=== PATIENT | male | born 1970 | race African-American/Black ===

== ENCOUNTER 2016-10-11 07:52 | Inpatient (IN) ==
[2016-10-11] MEDS ORDERED: NS 1,000 ML IV ONE (08:14)
[2016-10-11 08:47] LABS: MANUAL DIFF NEEDED? NO; URINE MICRO REVIEW NEEDED? NO; URINE SOURCE CLEAN CATCH
--- NOTE | 2016-10-11 08:50 | PROVIDER DOCUMENTATION ---
Addendum entered and electronically signed by Shira Madera Scribe 10:44: EKG Interpretation - EKG Time of EKG reading by physician:: 10:01 EKG Read and Signed by:: Kiera Odell EKG Interpretation (*Must complete 3 of following elements*): Abnormal Rate: 88 (nonspeific T wave abnormalirty) Rhythm: sinus rhythm with occasional prematue ventricular complexes Original Note: HPI-Abdominal Pain/GI Problem <Shira Madera - Last Filed: 10/11/16 09:52> - General Source: patient - History of Present Illness-ABD Abdominal Pain Onset Location: reports: generalized abdomen Pain Radiation: reports: no radiation Quality of Pain: reports: aching, cramping Severity in ED: reports: moderate Onset/Duration: reports: 4 days ago Timing: reports: still present Activities at Onset: reports: none Modifying Factors: improves with: nothing Associated Symptoms: reports: back/neck pain, malaise. denies: chest pain, constipation, cough, diaphoresis, diarrhea, dizziness, rash, seizure, shortness of breath, pain with inspiration, vomiting Last BM: other (10 days ago) Dark Stools Present?: reports: none noticed Rectal Bleeding: reports: none Rectal Pain: reports: none Emesis Description: reports: none Bruising or Bleeding Gums?: No Similar Symptoms Previously?: No Recently seen or treated by another doctor?: No <Kiera Odell - Last Filed: 10/11/16 09:58> - General Chief Complaint: Abdominal Pain Stated Complaint: ABD PAIN/CONSTIPATION Time Seen by Provider: 10/11/16 07:54 Allergies/Adverse Reactions: Patient Allergies Allergy/AdvReac Type Severity Reaction Status Date / Time No Known Allergies Allergy Verified 10/11/16 08:19 Home Medications: Carvedilol [Coreg] 12.5 mg PO DAILY 01/04/14 Metformin [Glucophage] 500 mg PO BID 08/27/14 Insulin Humulin 70/30 [Humulin 70/30] 10 units SQ HS 10/29/14 Insulin Humulin 70/30 [Humulin 70/30] 15 units SQ DAILY 10/29/14 Hydrocodone/Acetaminophen [[place] 7.5-325 Tablet] 1 each PO Q6H PRN PRN 10/11/16 - History of Present Illness-ABD Nature of Presenting Problems: Reports R flank and generalized abd pain since more than 10 days ago after taking Keflex fro sinusitis via PCP. Denies F/C/N/V and dysuria. Reports he is on insulin for DMII and he was started [place] since 4 months ago for chronic pain. Reports No BM since 4 days ago. (Kiera Odell) Review of Systems - Adult - REVIEW OF SYSTEMS - ADULT Constitutional: reports: no symptoms reported Eyes: reports: no symptoms reported Ears, Nose, Mouth & Throat: reports: no symptoms reported Cardiovascular: reports: no symptoms reported Respiratory: reports: no symptoms reported Gastrointestinal: reports: see HPI, constipation. denies: nausea, poor appetite , rectal bleeding Genitourinary: reports: see HPI, flank pain Musculoskeletal: reports: no symptoms reported Integumentary: reports: no symptoms reported Neurological: reports: no symptoms reported Psychiatric: reports: no symptoms reported All Other Systems: Reviewed and Negative <Kiera Odell - Last Filed: 10/11/16 09:58> Past History - Adult - PAST MEDICAL HISTORY-ADULT Major Childhood Illnesses: reports: denies history Cardiovascular: reports: CHF, HTN, hyperlipidemia Respiratory: reports: asthma Endocrine/Immune: reports: Diabetes - PRIOR SURGERIES/PROCEDURES Surgical/Procedure History: reports: none - IMMUNIZATION STATUS Childhood Immunizations: See Nurse Assessment Flu Vaccine: See Nurse Assessment <Kiera Odell - Last Filed: 10/11/16 09:58> Physical Exam-General - PHYSICAL EXAM-ADULT Initial Vital Signs Reviewed: Yes - CONSTITUTIONAL General Appearance: appears well, alert, no apparent distress - EYES Eyes: PERRL/EOMI, pink conjunctivae, fundi clear, no AV nicking - HEAD, EARS, NOSE, MOUTH & THROAT HENMT: normocephalic/atraumatic, moist mucous membranes, normal ENT inspection - NECK Neck: non-tender, full range of motion, supple, normal inspection - RESPIRATORY Respiratory: chest non-tender, lungs clear, normal breath sounds, no pleuratic chest pain, no respiratory distress, no accessory muscle use - CARDIOVASCULAR Cardiovascular: normal peripheral pulses, regular rate, rhythm, no edema, no gallop, no JVD, no murmur - CHEST (BREASTS) Chest/Breast: deferred, normal breast inspection - GASTROINTESTINAL (ABDOMEN) Abdominal Exam: normal bowel sounds, soft, no organomegaly, tenderness. negative: distended, guarding, rigid, rebound, hernia, spleenomegaly, McBurney' s point tenderness, Saleem's sign, obturator sign (Diffused R flank and b/l lower abd pain) - MUSCULOSKELETAL Extremity: normal range of motion, non-tender, normal gait, normal inspection - SKIN Integumentary: normal color, normal turgor, warm/dry - NEUROLOGIC Neurologic: grossly normal, no motor/sensory deficits, abnormal cerebellar tests , abnormal gait - PSYCHIATRIC Psych/Mental Status: normal mood/affect, normal thought content, normal thought process, oriented x 3 <Kiera Odell X - Last Filed: 10/11/16 09:58> Progress - CT/MRI 1 CT Study: Renal Stone (1. Dilated appendix with a prominent appendicolith. No definite surrounding inflammatory change is identified. Nonetheless, very early acute appendicits cannot be excluded. 2. No renal stones or hydro.) <Shira Madera - Last Filed: 10/11/16 09:52> - CONSULTS/PCP/HOSPITALIST Notification Time Discussed: 09:55 Reason/Comments: Dr. Mixon will see pt at ER Consult Disposition: Will see in ED, Admit <Jose RKiera X - Last Filed: 10/11/16 09:58> - PLAN OF CARE/RESULTS Progress/Plan/Lab Results: Laboratory Results - last 24 hr 10/11/16 10/11/16 10/11/16 08:38 08:38 08:38 WBC RBC Hgb Hct MCV MCH MCHC RDW Std Deviation Plt Count MPV Neut % (Auto) Lymph % (Auto) Desha % (Auto) Eos % (Auto) Baso % (Auto) Neut # (Auto) Lymph # (Auto) Desha # (Auto) Eos # (Auto) Baso # (Auto) Sodium 132 L Potassium 4.7 Chloride 95 L Carbon Dioxide 22 L Anion Gap 15 BUN 34 H Creatinine 1.8 H Estimated GFR/1.73 m2 50 BUN/Creatinine Ratio 19 Glucose 174 H Calculated Osmolality 276 Calcium 9.9 Total Bilirubin 0.50 AST 24 ALT 30 Alkaline Phosphatase 88 Total Protein 8.7 H Albumin 4.1 Globulin 4.6 Albumin/Globulin Ratio 0.9 Amylase 133 Lipase 135 H Urine Source CLEAN CATCH Urine Color YELLOW Urine Turbidity HAZY Urine pH 5.0 Ur Specific [place] 1.026 Urine Protein TRACE A Ur Glucose (Stick) NEGATIVE Ur Ketones (Stick) NEGATIVE Urine Blood NEGATIVE Urine Nitrite NEGATIVE Urine Bilirubin NEGATIVE Urobilinogen Dipstick NORMAL Urine Leukocytes MODERATE A Urine WBC (Auto) 10-20 A Urine RBC (Auto) <10 U Epithel Cells (Auto) >10 A Urine Bacteria (Auto) NEGATIVE Urine Opiates Screen NONE DETECTED Ur Oxycodone Screen NONE DETECTED Ur Methadone, Qual NONE DETECTED Ur Barbiturates Screen NONE DETECTED Ur Phencyclidine Scrn NONE DETECTED Ur Amphetamines Screen NONE DETECTED U Benzodiazepines Scrn NONE DETECTED Urine Cocaine Screen PRESUMPTIVE POSITIVE A U Cannabinoids Screen PRESUMPTIVE POSITIVE A 10/11/16 08:38 WBC 7.25 RBC 5.14 Hgb 13.9 L Hct 43.3 MCV 84.2 MCH 27.0 MCHC 32.1 L RDW Std Deviation 14.0 Plt Count 252 MPV 9.9 Neut % (Auto) 61.0 Lymph % (Auto) 30.1 Desha % (Auto) 5.9 Eos % (Auto) 2.6 Baso % (Auto) 0.4 Neut # (Auto) 4.42 Lymph # (Auto) 2.18 Desha # (Auto) 0.43 Eos # (Auto) 0.19 Baso # (Auto) 0.03 Sodium Potassium Chloride Carbon Dioxide Anion Gap BUN Creatinine Estimated GFR/1.73 m2 BUN/Creatinine Ratio Glucose Calculated Osmolality Calcium Total Bilirubin AST ALT Alkaline Phosphatase Total Protein Albumin Globulin Albumin/Globulin Ratio Amylase Lipase Urine Source Urine Color Urine Turbidity Urine pH Ur Specific [place] Urine Protein Ur Glucose (Stick) Ur Ketones (Stick) Urine Blood Urine Nitrite Urine Bilirubin Urobilinogen Dipstick Urine Leukocytes Urine WBC (Auto) Urine RBC (Auto) U Epithel Cells (Auto) Urine Bacteria (Auto) Urine Opiates Screen Ur Oxycodone Screen Ur Methadone, Qual Ur Barbiturates Screen Ur Phencyclidine Scrn Ur Amphetamines Screen U Benzodiazepines Scrn Urine Cocaine Screen U Cannabinoids Screen Vital Signs Temp Pulse Resp BP Pulse Ox 10/11/16 07:56 98.0 F 106 H 18 128/96 100 No Known Allergies Allergy (Verified 10/11/16 08:19) Lisinopril [Zestril] 20 mg PO DAILY #30 mg NS 11/07/13 Carvedilol [Coreg] 12.5 mg PO DAILY 01/04/14 Metformin [Glucophage] 500 mg PO BID 08/27/14 Insulin Humulin 70/30 [Humulin 70/30] 10 units SQ HS 10/29/14 Insulin Humulin 70/30 [Humulin 70/30] 15 units SQ DAILY 10/29/14 Furosemide [Lasix] 40 mg PO DAILY #0 tablet 10/31/14 Potassium Chloride 8 meq PO DAILY #0 capsule.er 10/31/14 Hydrocodone/Acetaminophen [[place] 7.5-325 Tablet] 1 each PO Q6H PRN PRN 10/11/16 Dietary Diet NPO Start Sun Oct 11 813 I&O 10/10/16 10/11/16 10/12/16 06:59 06:59 06:59 Output Total 10 Balance -10 Laboratory 10/11/16 10/11/16 10/11/16 08:38 08:38 08:38 WBC 7.25 RBC 5.14 Hgb 13.9 L Hct 43.3 MCV 84.2 MCH 27.0 MCHC 32.1 L RDW Std Deviation 14.0 Plt Count 252 MPV 9.9 Neut % (Auto) 61.0 Lymph % (Auto) 30.1 Desha % (Auto) 5.9 Eos % (Auto) 2.6 Baso % (Auto) 0.4 Neut # (Auto) 4.42 Lymph # (Auto) 2.18 Desha # (Auto) 0.43 Eos # (Auto) 0.19 Baso # (Auto) 0.03 Sodium 132 L Potassium 4.7 Chloride 95 L Carbon Dioxide 22 L Anion Gap 15 BUN 34 H Creatinine 1.8 H Estimated GFR/1.73 m2 50 BUN/Creatinine Ratio 19 Glucose 174 H Calculated Osmolality 276 Calcium 9.9 Total Bilirubin 0.50 AST 24 ALT 30 Alkaline Phosphatase 88 Total Protein 8.7 H Albumin 4.1 Globulin 4.6 Albumin/Globulin Ratio 0.9 Amylase 133 Lipase 135 H Urine Source Urine Color Urine Turbidity Urine pH Ur Specific [place] Urine Protein Ur Glucose (Stick) Ur Ketones (Stick) Urine Blood Urine Nitrite Urine Bilirubin Urobilinogen Dipstick Urine Leukocytes Urine WBC (Auto) Urine RBC (Auto) U Epithel Cells (Auto) Urine Bacteria (Auto) Urine Opiates Screen NONE DETECTED Ur Oxycodone Screen NONE DETECTED Ur Methadone, Qual NONE DETECTED Ur Barbiturates Screen NONE DETECTED Ur Phencyclidine Scrn NONE DETECTED Ur Amphetamines Screen NONE DETECTED U Benzodiazepines Scrn NONE DETECTED Urine Cocaine Screen PRESUMPTIVE POSITIVE A U Cannabinoids Screen PRESUMPTIVE POSITIVE A 10/11/16 08:38 WBC RBC Hgb Hct MCV MCH MCHC RDW Std Deviation Plt Count MPV Neut % (Auto) Lymph % (Auto) Desha % (Auto) Eos % (Auto) Baso % (Auto) Neut # (Auto) Lymph # (Auto) Desha # (Auto) Eos # (Auto) Baso # (Auto) Sodium Potassium Chloride Carbon Dioxide Anion Gap BUN Creatinine Estimated GFR/1.73 m2 BUN/Creatinine Ratio Glucose Calculated Osmolality Calcium Total Bilirubin AST ALT Alkaline Phosphatase Total Protein Albumin Globulin Albumin/Globulin Ratio Amylase Lipase Urine Source CLEAN CATCH Urine Color YELLOW Urine Turbidity HAZY Urine pH 5.0 Ur Specific [place] 1.026 Urine Protein TRACE A Ur Glucose (Stick) NEGATIVE Ur Ketones (Stick) NEGATIVE Urine Blood NEGATIVE Urine Nitrite NEGATIVE Urine Bilirubin NEGATIVE Urobilinogen Dipstick NORMAL Urine Leukocytes MODERATE A Urine WBC (Auto) 10-20 A Urine RBC (Auto) <10 U Epithel Cells (Auto) >10 A Urine Bacteria (Auto) NEGATIVE Urine Opiates Screen Ur Oxycodone Screen Ur Methadone, Qual Ur Barbiturates Screen Ur Phencyclidine Scrn Ur Amphetamines Screen U Benzodiazepines Scrn Urine Cocaine Screen U Cannabinoids Screen Orders Category Date Time Status Saline Loc DIRECTED Care 10/11/16 08:14 Active NPO Diet 10/11/16 08:14 Active KUB ABDOMEN [RAD] Stat Exams 10/11/16 07:54 Taken RENAL STONE SEARCH [CT] Stat Exams 10/11/16 08:14 Draft AMYLASE [CHEM] Stat Lab 10/11/16 08:38 Completed CBC WITH ELECTRONIC DIFF [HEME] Stat Lab 10/11/16 08:38 Completed COMPREHENSIVE METABOLIC PANEL [CHEM] Stat Lab 10/11/16 08:38 Completed LIPASE [CHEM] Stat Lab 10/11/16 08:38 Completed TROPONIN T Stat Lab 10/11/16 08:38 Received UA NIMS W/REFLEX CULT [URINALYSIS] Stat Lab 10/11/16 08:38 Completed UDS [URINE DRUG SCREEN] Stat Lab 10/11/16 08:38 Completed 0.9% Sodium Chloride Inj [Ns] 1,000 ml Med 10/11/16 08:14 Discontinued IV 999 mls/hr CefTRIAXONE 1 GM/NS [Rocephin 1 gm/Ns] 50 ml Med 10/11/16 09:50 Active IV NOW EKG [EKG] Stat Ther 10/11/16 09:47 Ordered (Kiera Odell) Departure <Shira Madera - Last Filed: 10/11/16 09:52> - Departure Time of Disposition Order: 09:56 Certified Medical Emergency: Emergent <Kiera Odell - Last Filed: 10/11/16 09:58> - Departure DIAGNOSIS: Cocaine abuse Acute appendicitis Qualifiers: Acute appendicitis type: unspecified acute appendicitis type Qualified Code(s) : K35.80 - Unspecified acute appendicitis UTI (urinary tract infection) Qualifiers: Urinary tract infection type: acute cystitis Hematuria presence: without hematuria Qualified Code(s): N30.00 - Acute cystitis without hematuria Disposition: ADMITTED INPATIENT 09 Condition: Stable Referrals: Shola Estrella MD [Primary Care Provider] - Attestation - Scribe Verification/Attestation Scribe:: Shira Madera Acting as Scribe for:: Kiera Odell Scribe documention review:: This chart was documented by a scribe and accurately reflects the service the provider performed and the decisions made by the provider. <Shira Madera - Last Filed: 10/11/16 09:52> Physician Attestation
[2016-10-11 08:56] LABS: BASO% 0.4 % (0.0-0.8); EOS# 0.19 X1000 (0.0-0.7); EOS% 2.6 % (0.0-10.0); HEMATOCRIT 43.3 % (42.0-52.0); HEMOGLOBIN 13.9 g/dL (14.0-18.0); LYMPH# 2.18 X1000 (1.2-3.4); LYMPH% 30.1 % (20.5-51.1); MCHC 32.1 g/dL (33-37); MCV 84.2 FL (81-99); MONO# 0.43 X1000 (0.11-0.59); MONO% 5.9 % (1.7-9.3); MPV 9.9 FL (7.4-10.4); PLT 252 X1000 (130-400); RBC 5.14 XMIL (4.7-6.1)
[2016-10-11 09:09] LABS: BILIRUBIN URINE NEGATIVE (NEGATIVE); BLOOD URINE NEGATIVE (NEGATIVE); COLOR YELLOW; GLUCOSE URINE NEGATIVE (NEGATIVE); LEUKOCYTES URINE MODERATE (NEGATIVE); NITRITE URINE NEGATIVE (NEGATIVE); PROTEIN URINE TRACE mg/dL (NEGATIVE); SP GRAVITY URINE 1.026; TURBIDITY URINE HAZY (CLEAR); UROBILINOGEN URINE NORMAL (NORMAL)
[2016-10-11 09:11] LABS: UR EPITHELIAL CELLS >10 /HPF (<10); URINE BACTERIA NEGATIVE /HPF; URINE CULTURE NEEDED? YES; URINE RBC <10 /HPF (<10)
[2016-10-11 09:20] LABS: ALBUMIN 4.1 g/dL (3.5-5.0); CALCIUM 9.9 mg/dL (8.8-10.2); POTASSIUM 4.7 mmol/L (3.5-5.1); TOTAL BILIRUBIN 0.5 mg/dL (0.20-1.00); TOTAL PROTEIN 8.7 g/dL (6.3-8.3)
[2016-10-11 09:33] LABS: UR AMPHETAMINES QUAL NONE DETECTED (NONE DETECT); UR BARBITUATES QUAL NONE DETECTED (NONE DETECT); UR BENZODIAZEPIN QUAL NONE DETECTED (NONE DETECT); UR CANNABINOIDS QUAL PRESUMPTIVE POSITIVE (NONE DETECT); UR COCAINE QUAL PRESUMPTIVE POSITIVE (NONE DETECT); UR METHADONE QUAL NONE DETECTED (NONE DETECT); UR OPIATES QUAL NONE DETECTED (NONE DETECT); UR OXYCODONE QUAL NONE DETECTED (NONE DETECT); UR PCP QUAL NONE DETECTED (NONE DETECT)
[2016-10-11] MEDS ORDERED: ROCEPHIN 1 GM/NS 50 ML IV ONE (09:50)
--- NOTE | 2016-10-11 09:54 | Diag Imaging Result Document ---
PROCEDURE NAME: RENAL STONE SEARCH - 10/11/2016 CT ABDOMEN AND PELVIS WITHOUT CONTRAST/RENAL STONE PROTOCOL: COMPARISON: None available. FINDINGS: There is subsegmental atelectasis at the left lung base. There is a 1.4 cm right adrenal nodule with a density that is highly compatible with a small adenoma. There are no renal or ureteral stones, and there is no hydronephrosis. The urinary bladder is largely nondistended and is unremarkable, otherwise. There is a prominent appendicolith. The appendix is thickened, especially at its base, measuring up to 1.1 cm in diameter. Distal to the phlebolith, there is more modest dilation of the appendix measuring up to 7.3 mm in diameter. There is no appreciable periappendiceal inflammatory change and there are actually a few droplets of air in the tip of the appendix. Although it would be a very atypical presentation of appendicitis given the air in the tip of the appendix, very early, appendicitis cannot be excluded. There appear to be numerous small hyperdense foci in the lumen of the colon that are nonspecific and assumed to be something the patient ingested. No definite focal inflammatory change, free abdominal gas, or free fluid is appreciated, otherwise. There are few shotty nonspecific celiac lymph nodes. The remainder of the solid viscera of the abdomen and pelvis and the remainder of the GI tract is essentially unremarkable. IMPRESSION: 1. No renal or ureteral stones identified and no hydronephrosis. 2. Dilated appendix with an appendicolith. Although no significant surrounding inflammatory changes can be identified, early appendicitis cannot completely be excluded. It may be less apparent given the lack of IV contrast. Please see the above discussion. 3. Nonspecific shotty celiac lymph nodes. [facility]
[2016-10-11] MEDS ORDERED: ZOSYN 3.375 GM/NS 50 ML IV ONE (09:56)
[2016-10-11] MEDS ORDERED: LR 1,000 ML ONE (11:13)
[2016-10-11] MEDS ORDERED: SENSORCAINE 0.25%/EPI 1:200,000 ONE (11:13)
--- NOTE | 2016-10-11 11:13 | HISTORY AND PHYSICAL ---
HISTORY OF PRESENT ILLNESS: Mr. Declan Smith is a 45-year-old black male who is disabled because of his heart. He is a patient of Dr. Estrella and has had lower abdominal discomfort localizing to his right lower quadrant and his flank for the last week. He saw Dr. Estrella on September 24 and just was not feeling well and felt congested and he was given Keflex. He presented to the emergency department today because of this lower abdominal pain, decreased appetite, and constipation. SOCIAL HISTORY: He is disabled because of a diagnosis of congestive heart failure. He sees Dr. Saunders and the last time he saw him he felt his heart was doing well. He occasionally smokes. He does have a substance abuse history and I think that he had cocaine positive today. He states that he does not drink. He has a mother, sister, and brother here in [place]. MEDICATIONS: Lisinopril hydrochlorothiazide, metformin, insulin, Lasix, Coreg, and aspirin. ALLERGIES: No known drug allergies. PAST MEDICAL HISTORY: Hypertension, insulin-dependent diabetes mellitus, overweight, and history of congestive heart failure, seen by Dr. Saunders. REVIEW OF SYSTEMS: He has had constipation for the last 4-5 days he has lost 10 pounds over the last several weeks. He has had no recent chest pain or problems with his heart he has had no shortness of breath. A 14-point review of systems was performed. FAMILY HISTORY: Noncontributory. PHYSICAL EXAMINATION: GENERAL: Mr. Smith is an overweight, middle-aged, black male, in no acute distress. HEENT: No jaundice. No oral lesions. LYMPHATIC: No cervical or supraclavicular lymphadenopathy. HEART: Regular rate. LUNGS: Clear to auscultation and percussion bilaterally. ABDOMEN: Soft. There is no previous scars on his abdomen. He was slightly tender in the right lower quadrant, going to his flank. He is overweight. RECTAL: Exam was not performed. EXTREMITIES: He does have palpable peripheral pulses. No significant peripheral edema. NEUROLOGIC: No focal neurologic deficits. DIAGNOSTIC STUDIES: An EKG showed normal sinus rhythm. White blood cell count is normal. A CT renal stone search showed an appendix with an obvious fecalith within it. The proximal appendix was dilated but there is no surrounding inflammation and his white blood cell count is 7. ASSESSMENT AND PLAN: I felt that this fecalith and distention of his appendix could be causing his symptoms. We discussed treatment options including laparoscopic appendectomy which the patient wants to proceed with. I specifically discussed risks of surgery which include bleeding, infection, possible conversion of laparoscopic to open appendectomy, removal of a normal appendix, injury to intra-abdominal contents for trocar placement, leakage from the appendiceal stump requiring reoperation for infection. He understands the need for surgery and its risks and he wants to proceed.
[2016-10-11] MEDS ORDERED: DIPRIVAN 1% ONE (12:29)
[2016-10-11] MEDS: DILAUDID ONE ×2 (12:30→12:35)
--- NOTE | 2016-10-11 13:31 | Diag Imaging Result Document ---
PROCEDURE NAME: KE ABDOMEN - 10/11/2016 SUPINE RADIOGRAPH OF THE ABDOMEN AND PELVIS: COMPARISON: 11/29/2013. FINDINGS: There are multiple radiodense small foci seen projecting over the colon that are nonspecific. It appears to represent ingested material. Please correlate with the patient's history. There is a fair amount of stool in the colon suggesting possible constipation. There is no obstructive bowel pattern or evidence of large-volume free abdominal gas. There is no discrete organomegaly. IMPRESSION: 1. Multiple nonspecific radiopaque foci seen throughout the colon as described. 2. Suggestion of constipation.
[2016-10-11] MEDS ORDERED: TYLENOL PO PRN (13:38)
[2016-10-11] MEDS ORDERED: ZOFRAN IV PRN (13:39)
[2016-10-11] MEDS: NORCO-7.5 PO PRN ×3 (13:57→23:27)
[2016-10-11] MEDS: PERIDEX MT SCH ×2 (13:58→21:56)
[2016-10-11] MEDS: MORPHINE IV PRN ×2 (16:25→21:57)
--- NOTE | 2016-10-11 16:39 | OPERATIVE NOTE ---
PROCEDURE DATE: 10/11/2016 PREOPERATIVE DIAGNOSIS: Acute appendicitis. POSTOPERATIVE DIAGNOSIS: Acute appendicitis. PRINCIPAL PROCEDURE: Laparoscopic appendectomy. SURGEON: Nita Mixon MD. ANESTHESIA: General, in addition to local anesthetic. ESTIMATED BLOOD LOSS: 10 mL. DRAINS: None. INDICATIONS: Declan Smith is a 45-year-old overweight, black male, who presented to our emergency department with 1-week history of abdominal pain which is localized to his lower abdomen, mostly right lower quadrant and going to his right flank. A CT scan of his abdomen and pelvis was performed which documented a fecalith within the appendix, but no surrounding inflammation. No IV contrast was used because this was a renal stone search CT scan. His white blood cell count was normal, but because of his symptoms, his appendicolith and swollen proximal appendix, we felt that this appendix could be symptomatic and inflamed, and appendectomy was recommended. FINDINGS: There was swelling of the appendix, but very little acute inflammation. There is no gross purulence and certainly no intra-abdominal infection. DESCRIPTION OF PROCEDURE: The patient was brought to the operating room, placed supine, received general anesthesia, was intubated. He received Ancef prophylactically. His abdomen was prepped and draped within the sterile field. We used a Hart catheter tube. We made an incision above his umbilicus with a 15 blade scalpel. Veress needle was introduced through this incision into the abdomen. Pneumoperitoneum was established and then we removed the Veress needle and used step trocars. We placed 11 mm step trocar through this incision into the abdomen. The camera was placed through this port, and the abdomen was explored for injury. There was none. Two other trocars were placed under direct vision of the camera. We placed a 12 mm step trocar using a longitudinal incision, lower midline of the abdomen and a 5 mm step trocar in the right lower quadrant of the abdomen. The camera was at our umbilical port. We used a grasper and dissector in our lower ports sites, and easily identified the appendix and mobilized it using spatula cautery and blunt dissection. We used a gold load 45 mm in length Endo RICHELLE to come across the appendiceal mesentery, and then I used a reload of the stapler to come across the base of the appendix. An endobag was used to remove the appendix through our lower midline 12 mm port site. We placed the port back through this incision and the area of operation was inspected. There was no evidence of ongoing bleeding. We were happy with the appendiceal stump and all trocars removed. Pneumoperitoneum was allowed to dissipate and we used [id number] 2-0 Vicryl stitches to reapproximate the fascia at our midline incisions. The skin was closed with 4-0 Monocryl subcuticular stitch. Dressings were applied. He tolerated the procedure well with plans for him to go to the recovery room and then be hospitalized at least overnight.
[2016-10-11] MEDS: LR 1,000 ML IV SCH ×2 (17:36→23:28)
[2016-10-12] MEDS: NORCO-7.5 PO PRN ×2 (04:07→08:43)
--- NOTE | 2016-10-12 05:40 | EKG Report ---
Test Performed on : 10/11/2016 10:01:18 AM Test Reason : [place] positive UDS Blood Pressure : / mmHG Vent. Rate : 088 BPM Atrial Rate : 088 BPM P-R Int : 164 ms QRS Dur : 112 ms QT Int : 364 ms P-R-T Axes : 053 -05 158 degrees QTc Int : 440 ms Sinus rhythm. with occasional premature ventricular complexes. Nonspecific T wave abnormality Abnormal ECG When compared with ECG of 01-SEP-2013 03:09, premature ventricular complexes. are now present Questionable change in QRS axis QT has shortened Unconfirmed Result
[2016-10-12] MEDS: MORPHINE IV PRN (06:01)
--- NOTE | 2016-10-12 07:33 | DISCHARGE SUMMARY ---
ADMISSION DATE: 10/11/2016 DISCHARGE DATE: 10/12/2016 ADMITTING DIAGNOSIS: Acute appendicitis. DISCHARGE DIAGNOSIS: Acute appendicitis. PRINCIPAL PROCEDURE: Laparoscopic appendectomy on 10/11/2016. DISCHARGE DISABILITIES: Full. DISCHARGE DISPOSITION: He will return to our outpatient office in a week. DISCHARGE MEDICATION: He is to return to any home medications that he takes. DISCHARGE DIET: Clear liquids. HOSPITAL COURSE: Mr. Declan Smith is a 45-year-old, disabled black male, who presented to our emergency department with a 1 week history of abdominal pain, which was mostly in the lower abdomen but localized to the right lower quadrant and extended around his right flank. CT scan of the abdomen and pelvis was performed which documented a fecalith within the appendix and some swelling proximally of the appendix, but there was no significant inflammation surrounding the appendix. His white blood cell count was normal but because of his symptoms and the fecalith we felt his symptoms could be related to his swollen appendix and appendectomy was recommended. Yesterday evening he went to the operating room, underwent a laparoscopic appendectomy for acute appendicitis. No other intra-abdominal pathology was noted. We felt we did the operation safely. No drains were left. He went to the recovery room and then to the [address] [place] [address] where he was hospitalized overnight. On the morning of postop day 1, he was awake, cooperative, comfortable. His heart rate was 89, blood pressure 112/82, O2 saturation 100%. He had no work of breathing. He was voiding without difficulty. He was afebrile on no antibiotics. His trocar sites were dressed and intact, healing well. I discussed post discharge instructions with him. He knows to contact us with any problems. I will see him in our outpatient office in a week.
[2016-10-12 07:48] VITALS: BP 134/90
[2016-10-12] MEDS ORDERED: NEOSTIGMINE ONE (08:39)
[2016-10-12] MEDS ORDERED: SODIUM CHLORIDE 0.9% 10 ML ONE (08:39)
[2016-10-12] MEDS ORDERED: QUELICIN (DOSE) ONE (08:39)
[2016-10-12] MEDS ORDERED: ROBINUL ONE (08:39)
[2016-10-12] MEDS ORDERED: XYLOCAINE-MPF 2% ONE (08:39)
[2016-10-12] MEDS ORDERED: NORCURON ONE (08:39)
[2016-10-12] MEDS ORDERED: NEO-SYNEPHRINE ONE (08:39)
[2016-10-12] MEDS ORDERED: ZOFRAN ONE (08:39)
[2016-10-12] MEDS ORDERED: LR 1,000 ML ONE (08:39)
[2016-10-12] MEDS: PERIDEX MT SCH (08:44)
== END 2016-10-12 09:10 | disposition home or self-care (01) | DRG 342 ==
LOC: ED 07:52 → EDIPHOLD 11:11 → 4N 13:11
PROVIDERS: ADMIT Surgery; ATTEND Surgery
PROC: 0DTJ4ZZ Resection of Appendix, Percutaneous Endoscopic Approach (ICD-10-PCS; principal; 2016-10-11 11:27)
DX: K35.80 Unspecified acute appendicitis (principal); Z68.41 Body mass index [BMI] 40.0-44.9, adult; I11.0 Hypertensive heart disease with heart failure; I50.9 Heart failure, unspecified; K56.41 Fecal impaction; E11.9 Type 2 diabetes mellitus without complications; E66.3 Overweight; Z79.899 Other long term (current) drug therapy; Z79.84 Long term (current) use of oral hypoglycemic drugs; Z79.4 Long term (current) use of insulin; R82.5 Elevated urine levels of drugs, medicaments and biological substances
CPT/HCPCS: 74000; 74176; 80053; 81001; 82150; 82948; 83690; 84484; 85025; 87088; 88304; 93005; 94761; 94799; 96365; G0480; J0330; J1170; J2270; J2370; J2405; J2543; J7030; J7120; J2710

== ENCOUNTER 2017-03-01 20:27 | Inpatient (IN) ==
[2017-03-01] MEDS ORDERED: ASPIRIN PO STA (20:41)
--- NOTE | 2017-03-01 21:46 | PROVIDER DOCUMENTATION ---
HPI-Respiratory General - General Chief Complaint: Shortness of Breath Stated Complaint: RT SIDE PAIN/ TROUBLE BREATHING Time Seen by Provider: 03/01/17 21:00 Allergies/Adverse Reactions: Patient Allergies Allergy/AdvReac Type Severity Reaction Status Date / Time No Known Allergies Allergy Verified 10/11/16 08:19 Home Medications: Home Medication List Medication Instructions Recorded Confirmed Last Taken Type Lisinopril [Zestril] 20 mg PO DAILY #30 mg NS 11/07/13 10/11/16 10/10/16 Rx Carvedilol [Coreg] 12.5 mg PO DAILY 01/04/14 10/11/16 10/10/16 History Metformin [Glucophage] 500 mg PO BID 08/27/14 10/11/16 10/11/16 History Insulin Humulin 70/30 [Humulin 10 units SQ HS 10/29/14 10/11/16 10/10/16 History 70/30] Insulin Humulin 70/30 [Humulin 15 units SQ DAILY 10/29/14 10/11/16 10/11/16 History 70/30] Furosemide [Lasix] 40 mg PO DAILY #0 tablet 10/31/14 10/11/16 10/10/16 Rx Potassium Chloride 8 meq PO DAILY #0 capsule.er 10/31/14 10/11/16 2 Months Ago Rx Hydrocodone/Acetaminophen [[place]ie 1 each PO Q6H PRN PRN 10/11/16 10/11/16 History 7.5-325 Tablet] Hydrocodone/APAP 7.5 mg/325 mg 1 each PO Q6H PRN PRN #15 tablet 10/12/16 Unknown Rx [D[place]widdie-7.5] Past History - Adult - PAST MEDICAL HISTORY-ADULT Major Childhood Illnesses: reports: denies history Cardiovascular: reports: CHF, HTN, hyperlipidemia Respiratory: reports: asthma Endocrine/Immune: reports: Diabetes - PRIOR SURGERIES/PROCEDURES Surgical/Procedure History: reports: none - IMMUNIZATION STATUS Childhood Immunizations: See Nurse Assessment Flu Vaccine: See Nurse Assessment Progress - PLAN OF CARE/RESULTS Progress/Plan/Lab Results: Vital Signs - 8 hr 03/01/17 20:40 Temperature 98.9 F Pulse Rate 92 H Respiratory Rate 20 Blood Pressure 140/87 O2 Sat by Pulse Oximetry 98 Orders Category Date Time Status Cardiac Monitoring DIRECTED Care 03/01/17 20:42 Active Saline Loc NOW Care 03/01/17 20:42 Active CHEST-2 VIEWS [RAD] Stat Exams 03/01/17 20:42 Taken BLOOD CULTURE [BLDCUL] Stat Lab 03/01/17 21:43 Uncollected CBC WITH ELECTRONIC DIFF [HEME] Stat Lab 03/01/17 20:42 Uncollected CK PROFILE [SP CHEM] Stat Lab 03/01/17 20:42 Uncollected COMPREHENSIVE METABOLIC PANEL [CHEM] Stat Lab 03/01/17 20:42 Uncollected D-DIMER [CHEM] Stat Lab 03/01/17 20:42 Uncollected LACTATE, PLASMA [CHEM] Stat Lab 03/01/17 21:43 Uncollected MAGNESIUM [CHEM] Stat Lab 03/01/17 20:42 Uncollected PRO B-NATRIURETIC PEPTIDE Stat Lab 03/01/17 20:42 Uncollected PROTIME WITH INR [COAG] Stat Lab 03/01/17 20:42 Uncollected PTT [COAG] Stat Lab 03/01/17 20:42 Uncollected TROPONIN T Stat Lab 03/01/17 20:42 Uncollected UA Reflex [URINALYSIS W/POSS RFLX CULT-1] [URINALYSIS] Lab 03/01/17 21:01 Uncollected Stat Aspirin Med 03/01/17 20:41 Discontinued 325 mg PO STAT STA EKG [EKG] Stat Ther 03/01/17 20:42 Ordered - XRAY 1 XRAY Study: Chest Impression: Abnormal (RIGHT MIDDLE LOBE INFILTRATE, R LOWER LOBE INFILTRATE, PNEUMONIA, CARDIOMEGALY) Departure - Departure Referrals and Follow-Ups: Shola Estrella MD [Primary Care Provider] -
--- NOTE | 2017-03-01 22:06 | ED EKG INTERP ---
This chart was entered by Vandana Bermudez Scribe, acting as scribe for Celso Brown MD. EKG Interpretation - EKG Time of EKG reading by physician:: 20:47 EKG Read and Signed by:: Celso Brown EKG Interpretation (*Must complete 3 of following elements*): Abnormal Rate: 95 Rhythm: NSR Comments: Abnormal ECG,Prolonged QT, Nonspecific T wave abnormality This chart was documented by the indicated scribe, (Vandana Bermudez Scribe) and accurately reflects the services I performed and decisions made by me, Celso Brown MD, as attested by the provider's signature.
--- NOTE | 2017-03-01 22:08 | PROVIDER DOCUMENTATION ---
This chart was entered by Vandana Bermudez Scribe, acting as scribe for Ashok Pelayo PA. HPI-Respiratory General - General Chief Complaint: Shortness of Breath Stated Complaint: RT SIDE PAIN/ TROUBLE BREATHING Time Seen by Provider: 03/01/17 21:00 Source: patient Allergies/Adverse Reactions: Patient Allergies Allergy/AdvReac Type Severity Reaction Status Date / Time No Known Allergies Allergy Verified 03/01/17 22:02 Home Medications: Home Medication List Medication Instructions Recorded Confirmed Last Taken Type Lisinopril [Zestril] 20 mg PO DAILY #30 mg NS 11/07/13 03/01/17 10/10/16 Rx Carvedilol [Coreg] 12.5 mg PO DAILY 01/04/14 03/01/17 10/10/16 History Metformin [Glucophage] 500 mg PO BID 08/27/14 03/01/17 10/11/16 History Insulin Humulin 70/30 [Humulin 10 units SQ HS 10/29/14 03/01/17 10/10/16 History 70/30] Insulin Humulin 70/30 [Humulin 15 units SQ DAILY 10/29/14 03/01/17 10/11/16 History 70/30] Furosemide [Lasix] 40 mg PO DAILY #0 tablet 10/31/14 03/01/17 10/10/16 Rx Potassium Chloride 8 meq PO DAILY #0 capsule.er 10/31/14 03/01/17 2 Months Ago Rx Hydrocodone/Acetaminophen [Coram 1 each PO Q6H PRN PRN 10/11/16 03/01/17 History 7.5-325 Tablet] Albuterol Sulfate Inhaler 1 puff INH PRN PRN 03/01/17 03/01/17 Unknown History [Ventolin Hfa] - History of Present Illness-Resp Nature of Presenting Problem: 46 Y/O M presents to ED with Respiratory General. Pt states for the last 3-4 increased SOB. Pt states hx of CHF,Diabetic, HTN, COPD. Pt states SOB increases when laying down, and if he lays flat he stops breathing. Pt states he uses a CPap at home. CP increases at night and states sudden burst on original onset. Quality of Pain: reports: tightness Severity in ED: reports: moderate, severe Onset/Duration: reports: 4 days ago Timing: reports: still present, changing over time, getting worse Current Respiratory Medication Therapy: Initiated other (CPAP) Associated Symptoms: reports: chest pain/soreness, shortness of breath. denies : nasal congestion Similar Symptoms Previously?: Yes Review of Systems - Adult - REVIEW OF SYSTEMS - ADULT Constitutional: denies: chills, fever Eyes: reports: no symptoms reported Ears, Nose, Mouth & Throat: reports: no symptoms reported Cardiovascular: reports: chest pain Respiratory: reports: shortness of breath Gastrointestinal: reports: no symptoms reported Genitourinary: reports: no symptoms reported Musculoskeletal: reports: no symptoms reported Integumentary: reports: no symptoms reported Neurological: reports: no symptoms reported Psychiatric: reports: no symptoms reported Endocrine: reports: no symptoms reported Hematologic/Lymphatic: reports: no symptoms reported Allergic/Immunologic: reports: no symptoms reported All Other Systems: Reviewed and Negative Past History - Adult - PAST MEDICAL HISTORY-ADULT Review of Records: reports: Old Records Reviewed, Nursing Assessment Review, Medications Reviewed, Social history reviewed & non-contributory. Major Childhood Illnesses: reports: denies history Cardiovascular: reports: CHF, HTN, hyperlipidemia Respiratory: reports: asthma Endocrine/Immune: reports: Diabetes - PRIOR SURGERIES/PROCEDURES Surgical/Procedure History: reports: none - IMMUNIZATION STATUS Childhood Immunizations: See Nurse Assessment Flu Vaccine: See Nurse Assessment Physical Exam-General - CONSTITUTIONAL General Appearance: alert, no apparent distress, obese - EYES Eyes: PERRL/EOMI, pink conjunctivae - HEAD, EARS, NOSE, MOUTH & THROAT HENMT: normocephalic/atraumatic, moist mucous membranes, normal ENT inspection, TMs normal, pharynx normal - NECK Neck: full range of motion, other (JVD) - RESPIRATORY Respiratory: decreased breath sounds (BASES) - CARDIOVASCULAR Cardiovascular: normal peripheral pulses, regular rate, rhythm - GASTROINTESTINAL (ABDOMEN) Abdominal Exam: non tender, soft - MUSCULOSKELETAL Extremity: normal range of motion, non-tender - SKIN Integumentary: normal color, normal turgor, warm/dry - NEUROLOGIC Neurologic: grossly normal - PSYCHIATRIC Psych/Mental Status: normal mood/affect, normal thought content, normal thought process, oriented x 3 Progress - PLAN OF CARE/RESULTS Progress/Plan/Lab Results: Vital Signs - 8 hr 03/01/17 20:40 03/01/17 22:00 Temperature 98.9 F Pulse Rate 92 H 89 Respiratory Rate 20 16 Blood Pressure 140/87 133/103 O2 Sat by Pulse Oximetry 98 96 Laboratory Results - last 24 hr 03/01/17 03/01/17 03/01/17 21:50 21:50 21:50 WBC 9.03 RBC 4.40 L Hgb 12.1 L Hct 38.3 L MCV 87.0 MCH 27.5 MCHC 31.6 L RDW Std Deviation 14.8 H Plt Count 233 MPV 10.1 Immature Gran % (Auto) 0.2 Neut % (Auto) 65.4 Lymph % (Auto) 27.4 [place] % (Auto) 5.4 Eos % (Auto) 1.3 Baso % (Auto) 0.3 Immature Gran # (Auto) 0.02 Neut # (Auto) 5.90 Lymph # (Auto) 2.47 [place] # (Auto) 0.49 Eos # (Auto) 0.12 Baso # (Auto) 0.03 PT INR PTT (Actin FS) D-Dimer 2.11 H Specimen Type Sample Site pH pCO2 pO2 HCO3 Base Excess Oxyhemoglobin ABG O2 Sat (Calculated) ABG O2 Saturation ABG Carboxyhemoglobin ABG Methemoglobin Kade Test A-a O2 Difference Total Hemoglobin Lactate Liter Flow Blood Gas Modality FiO2 % Sodium 141 Potassium 4.0 Chloride 104 Carbon Dioxide 25 Anion Gap 12 BUN 20 Creatinine 1.3 H Estimated GFR/1.73 m2 > 60 BUN/Creatinine Ratio 15 Glucose 118 H Calculated Osmolality 285 Calcium 8.9 Magnesium 1.9 Total Bilirubin 0.53 AST 38 H ALT 40 Alkaline Phosphatase 121 Creatine Kinase 442 H Creatine Kinase Index 2.0 CK-MB (CK-2) 8.77 H Troponin T [id number] Pept Total Protein 8.3 Albumin 4.0 Globulin 4.3 Albumin/Globulin Ratio 0.9 Plasma Lactate Urine Source Urine Color Urine Turbidity Urine pH Ur Specific [place] Urine Protein Ur Glucose (Stick) Ur Ketones (Stick) Urine Blood Urine Nitrite Urine Bilirubin Urobilinogen Dipstick Urine Leukocytes Urine WBC (Auto) Urine RBC (Auto) U Epithel Cells (Auto) Urine Bacteria (Auto) 03/01/17 03/01/17 03/01/17 21:50 21:50 21:50 WBC RBC Hgb Hct MCV MCH MCHC RDW Std Deviation Plt Count MPV Immature Gran % (Auto) Neut % (Auto) Lymph % (Auto) [place] % (Auto) Eos % (Auto) Baso % (Auto) Immature Gran # (Auto) Neut # (Auto) Lymph # (Auto) [place] # (Auto) Eos # (Auto) Baso # (Auto) PT 12.0 H INR 1.13 PTT (Actin FS) 28.8 D-Dimer Specimen Type Sample Site pH pCO2 pO2 HCO3 Base Excess Oxyhemoglobin ABG O2 Sat (Calculated) ABG O2 Saturation ABG Carboxyhemoglobin ABG Methemoglobin Kade Test A-a O2 Difference Total Hemoglobin Lactate Liter Flow Blood Gas Modality FiO2 % Sodium Potassium Chloride Carbon Dioxide Anion Gap BUN Creatinine Estimated GFR/1.73 m2 BUN/Creatinine Ratio Glucose Calculated Osmolality Calcium Magnesium Total Bilirubin AST ALT Alkaline Phosphatase Creatine Kinase Creatine Kinase Index CK-MB (CK-2) Troponin T < 0.010 Uol-W-Gyqbngdeiad Pept 3881 H Total Protein Albumin Globulin Albumin/Globulin Ratio Plasma Lactate Urine Source Urine Color Urine Turbidity Urine pH Ur Specific [place] Urine Protein Ur Glucose (Stick) Ur Ketones (Stick) Urine Blood Urine Nitrite Urine Bilirubin Urobilinogen Dipstick Urine Leukocytes Urine WBC (Auto) Urine RBC (Auto) U Epithel Cells (Auto) Urine Bacteria (Auto) 03/01/17 03/01/17 03/01/17 21:50 23:05 23:25 WBC RBC Hgb Hct MCV MCH MCHC RDW Std Deviation Plt Count MPV Immature Gran % (Auto) Neut % (Auto) Lymph % (Auto) [place] % (Auto) Eos % (Auto) Baso % (Auto) Immature Gran # (Auto) Neut # (Auto) Lymph # (Auto) [place] # (Auto) Eos # (Auto) Baso # (Auto) PT INR PTT (Actin FS) D-Dimer Specimen Type ARTERIAL Sample Site R RADIAL pH 7.37 pCO2 44 pO2 93 HCO3 24.8 Base Excess -0.1 Oxyhemoglobin 93.3 L ABG O2 Sat (Calculated) 15.6 ABG O2 Saturation 98.6 ABG Carboxyhemoglobin 4.30 H ABG Methemoglobin 1.1 Kade Test YES A-a O2 Difference 80.0 Total Hemoglobin 11.8 Lactate 0.60 Liter Flow 3.0 Blood Gas Modality CANNULA FiO2 % 32.0 Sodium Potassium Chloride Carbon Dioxide Anion Gap BUN Creatinine Estimated GFR/1.73 m2 BUN/Creatinine Ratio Glucose Calculated Osmolality Calcium Magnesium Total Bilirubin AST ALT Alkaline Phosphatase Creatine Kinase Creatine Kinase Index CK-MB (CK-2) Troponin T Gzk-C-Acktjjbdjwq Pept Total Protein Albumin Globulin Albumin/Globulin Ratio Plasma Lactate 0.9 Urine Source CLEAN CATCH Urine Color YELLOW Urine Turbidity CLEAR Urine pH 5.5 Ur Specific [place] 1.028 Urine Protein 70 A Ur Glucose (Stick) NEGATIVE Ur Ketones (Stick) NEGATIVE Urine Blood TRACE A Urine Nitrite NEGATIVE Urine Bilirubin NEGATIVE Urobilinogen Dipstick 4 A Urine Leukocytes MODERATE A Urine WBC (Auto) 10-20 A Urine RBC (Auto) <10 U Epithel Cells (Auto) <10 Urine Bacteria (Auto) NEGATIVE Orders Category Date Time Status Cardiac Monitoring DIRECTED Care 03/01/17 20:42 Active Saline Loc NOW Care 03/01/17 20:42 Active ANGIOGRAM/PULMONARY ARTERIES [CT] Stat Exams 03/01/17 23:34 Taken CHEST-2 VIEWS [RAD] Stat Exams 03/01/17 20:42 Taken ABG [RESP] Routine Lab 03/01/17 23:05 Completed BLOOD CULTURE [BLDCUL] Stat Lab 03/01/17 23:25 Received CBC WITH ELECTRONIC DIFF [HEME] Stat Lab 03/01/17 21:50 Completed CK PROFILE [SP CHEM] Stat Lab 03/01/17 21:50 Completed COMPREHENSIVE METABOLIC PANEL [CHEM] Stat Lab 03/01/17 21:50 Completed D-DIMER [CHEM] Stat Lab 03/01/17 21:50 Completed LACTATE, PLASMA [CHEM] Stat Lab 03/01/17 23:25 Completed MAGNESIUM [CHEM] Stat Lab 03/01/17 21:50 Completed PRO B-NATRIURETIC PEPTIDE Stat Lab 03/01/17 21:50 Completed PROTIME WITH INR [COAG] Stat Lab 03/01/17 21:50 Completed PTT [COAG] Stat Lab 03/01/17 21:50 Completed TROPONIN T Stat Lab 03/01/17 21:50 Completed UA Reflex [URINALYSIS W/POSS RFLX CULT-1] [URINALYSIS] Lab 03/01/17 21:50 Completed Stat Aspirin Med 03/01/17 20:41 Discontinued 325 mg PO STAT STA CefTRIAXONE 1 GM/NS [Rocephin 1 gm/Ns] Med 03/01/17 22:59 Discontinued 1 gm in 50 ml IV NOW Furosemide [Lasix] Med 03/01/17 22:59 Discontinued 40 mg IV NOW ONE EKG [EKG] Stat Ther 03/01/17 20:42 Ordered PROCEDURE NOTE: LIMITED BEDSIDE ULTRASOUND PERFORMED OF LUNGS. B-LINES NOTED CONSISTENT C PLEURAL EDEMA. Result Diagrams: 03/01/17 21:50 03/01/17 21:50 - REASSESSMENT Reassessment #1 Time Reassessed: 22:08 (Discussed workup c Dr. Brown who agreed c plan of care. Labs pending. ) Reassessment #2 Time Reassessed: 23:35 (d-dimer released from lab after machine delay. It is significantly elevated. Discussed c Dr. Brown. We will order PE study.) - XRAY 1 XRAY Study: Chest Impression: Abnormal XRAY Interpretation: Abnormal (RIGHT MIDDLE LOBE INFILTRATE, R LOWER LOBE INFILTRATE, PNEUMONIA, - CT/MRI 1 CT Study: Angiogram, Thorax Impression: Abnormal (No PE is identified. Indeterminate mediastinal and hilar adenopathy. bilat pleural effusions. Prominent interstitial thickening in lungs c ill-defined groundglass opacities. This could represent edema but recommend follow up. - prelim radiology report) - CONSULTS/PCP/HOSPITALIST Notification #1 *Consult/PCP/Hospitalist*: Dr. Blevins (Hospitalist) Time Discussed: 00:46 Reason/Comments: Will admit and will see pt in the ER. Departure - Departure Time of Disposition Decision: 00:46 DIAGNOSIS: Shortness of breath, Pleural effusion Disposition: ADMITTED INPATIENT 09 Certified Medical Emergency: Emergent Condition: Stable Referrals and Follow-Ups: Shola Estrella MD [Primary Care Provider] - - Critical Care Note This patient required my direct & personal management of CC.: No Attestation - Physician/ BAM Attestation Patient care was provided by Advanced Practice Provider:: Yes Advanced Practice Provider:: Ashok Pelayo Advanced Practice Provider documentation review:: The Mid-level provider documentation, treatment plan and medical decision making was reviewed by the physician who agrees with all treatment and medical decision making by the MLP. This chart was documented by the indicated scribe, (Vandana Bermudez Scribe) and accurately reflects the services I performed and decisions made by me, Ashok Pelayo PA, as attested by the provider's signature.
[2017-03-01 22:09] LABS: MANUAL DIFF NEEDED? NO; URINE CULTURE NEEDED? NO; URINE MICRO REVIEW NEEDED? NO; URINE SOURCE CLEAN CATCH
[2017-03-01 22:20] LABS: BASO% 0.3 % (0.0-0.8); EOS# 0.12 X1000 (0.0-0.7); EOS% 1.3 % (0.0-10.0); HEMATOCRIT 38.3 % (42.0-52.0); HEMOGLOBIN 12.1 g/dL (14.0-18.0); IMM GRAN# 0.02 X1000 (0.0-0.04); IMM GRAN% 0.2 % (0.0-0.5); LYMPH# 2.47 X1000 (1.2-3.4); LYMPH% 27.4 % (20.5-51.1); MCH 27.5 PG (27-31); MCHC 31.6 g/dL (33-37); MONO# 0.49 X1000 (0.11-0.59); MONO% 5.4 % (1.7-9.3); MPV 10.1 FL (7.4-10.4); NEUT% 65.4 % (42.2-75.2); PLT 233 X1000 (130-400)
[2017-03-01 22:21] LABS: BILIRUBIN URINE NEGATIVE (NEGATIVE); BLOOD URINE TRACE (NEGATIVE); COLOR YELLOW; GLUCOSE URINE NEGATIVE (NEGATIVE); LEUKOCYTES URINE MODERATE (NEGATIVE); NITRITE URINE NEGATIVE (NEGATIVE); PH URINE 5.5; PROTEIN URINE 70 mg/dL (NEGATIVE); SP GRAVITY URINE 1.028; TURBIDITY URINE CLEAR (CLEAR); UROBILINOGEN URINE 4 mg/dL (NORMAL)
[2017-03-01 22:23] LABS: INR 1.13; PTT 28.8 Seconds (22.0-36.0); UR EPITHELIAL CELLS <10 /HPF (<10); URINE BACTERIA NEGATIVE /HPF; URINE RBC <10 /HPF (<10)
[2017-03-01 22:34] LABS: AGAP 12; ALKALINE PHOSPHATASE 121 U/L (32-122); BUN 20 mg/dL (8-22); CALCIUM 8.9 mg/dL (8.8-10.2); CHLORIDE 104 mmol/L (98-107); COSMO 285; GOT 38 U/L (10-34); GPT 40 U/L (10-44); MAGNESIUM 1.9 mg/dL (1.5-2.7); SODIUM 141 mmol/L (136-145); TCO2 25 mmol/L (25-35); TOTAL BILIRUBIN 0.53 mg/dL (0.20-1.00); TOTAL PROTEIN 8.3 g/dL (6.3-8.3)
[2017-03-01 22:37] LABS: CK PROFILE 442 U/L (24-204)
[2017-03-01] MEDS ORDERED: LASIX IV ONE (22:59)
[2017-03-01] MEDS ORDERED: ROCEPHIN 1 GM/NS 1 GM/50 ML IVPB IV ONE (22:59)
[2017-03-01 23:17] LABS: ALLEN TEST YES; BE -0.1 mmoll (-3.0-3.0); BLOOD TYPE ARTERIAL; DRAW SITE R RADIAL; METHB 1.1 % (0.0-1.5); MODALITY CANNULA; O2(CT) 15.6 mL/dL (15.0-23.0); PCO2(98.6) 44 mmHg (35-45); PO2(98.6) 93 mmHg (60-100); SAMPLE BLOOD; SAO2 98.6 % (95.0-100.0); THB 11.8 g/dL (11.5-17.4); pH(98.6) 7.37 (7.35-7.45)
[2017-03-01 23:24] LABS: CK-MB 8.77 ng/mL (0.0-5.0)
[2017-03-02] MEDS ORDERED: LABETALOL IV ONE (01:06)
--- NOTE | 2017-03-02 01:45 | ED EKG INTERP ---
This chart was entered by Vandana Bermudez Scribe, acting as scribe for Celso Brown MD. EKG Interpretation - EKG Time of EKG reading by physician:: 01:29 EKG Read and Signed by:: Celso Brown EKG Interpretation (*Must complete 3 of following elements*): Normal Rate: 86 Rhythm: NSR Comments: Abnormal ECG, Prolonged QT, Nonspecific T wave abnormality This chart was documented by the indicated scribe, (Vandana Bermudez Scribe) and accurately reflects the services I performed and decisions made by me, Celso Brown MD, as attested by the provider's signature.
[2017-03-02] MEDS ORDERED: TYLENOL PO PRN (02:39)
[2017-03-02] MEDS ORDERED: ZOFRAN IV PRN (02:39)
[2017-03-02] MEDS: LASIX IV SCH ×2 (02:39→13:50)
[2017-03-02] MEDS ORDERED: VENTOLIN HFA INH PRN (02:39)
[2017-03-02 04:57] LABS: CK INDEX 2.1 (0.0-2.5); CK-MB 7.96 ng/mL (0.0-5.0)
--- NOTE | 2017-03-02 05:28 | EKG Report ---
Test Performed on : 03/01/2017 8:47:24 PM Test Reason : SOB Blood Pressure : / mmHG Vent. Rate : 095 BPM Atrial Rate : 095 BPM P-R Int : 138 ms QRS Dur : 104 ms QT Int : 382 ms P-R-T Axes : 051 020 100 degrees QTc Int : 480 ms Normal sinus rhythm. Nonspecific T wave abnormality Prolonged QT Abnormal ECG When compared with ECG of 11-OCT-2016 10:01, premature ventricular complexes. are no longer present Unconfirmed Result
[2017-03-02] MEDS: LOVENOX SUBQ SCH (05:45)
[2017-03-02] MEDS: HUMALOG SUBQ SCH ×4 (06:10→20:07)
[2017-03-02] MEDS ORDERED: INSULIN PEN NEEDLES ONE (06:28)
--- NOTE | 2017-03-02 06:42 | HISTORY AND PHYSICAL ---
PRIMARY CARE PROVIDER: Dr. Estrella. PATTERN PAINTER: Dr. Saunders. CHIEF COMPLAINT: Shortness of breath. HISTORY OF PRESENT ILLNESS: Mr. Smith is a 46-year-old male with a history of COPD, asthma, hypertension, congestive heart failure, and obesity, who presented to the emergency room with 4 days of shortness of breath. He is on disability related to his heart. A chest x-ray was obtained, which showed increased pulmonary vascular markings. Laboratory data showed an elevated D-dimer. The CTA excluded a pulmonary embolism, but did show bilateral pleural effusions. The patient did have mild elevations of his CKs, and an elevated proBNP of 3881. He will be admitted to the medical floor for further evaluation and treatment. PAST MEDICAL HISTORY: 1. COPD. 2. Asthma. 3. Chronic renal insufficiency. 4. Hypertension. 5. Insulin-dependent diabetes mellitus. 6. Obesity. 7. Congestive heart failure, with an ejection fraction of 35-40%, last tested on 09/18/2015. PREVIOUS SURGICAL HISTORY: 1. Cardiac catheterization. Unclear whether the patient had a stent. 2. Appendectomy. SOCIAL HISTORY: Disabled, related to his congestive heart failure. States that he stopped smoking a year ago, and was a 20 pack-year smoker, but then also says that he does occasionally still smoke cigarettes. I believe he had a substance abuse problem, drank alcohol fairly heavily. According to old medical records, he tested positive at some point for cocaine. States that he does not use any illicit drugs or drink at this time. FAMILY HISTORY: Mother had hypertension and diabetes mellitus. ALLERGIES: No known drug allergies. HOME MEDICATIONS: 1. Lisinopril 20 mg p.o. daily. 2. Coreg 12.5 mg p.o. daily. 3. Metformin 500 mg p.o. b.i.d. 4. Humulin 70/30, 15 units subcutaneously daily. 5. Humulin 70/30, 10 units subcutaneously at bedtime. 6. Lasix 40 mg p.o. daily. 7. Potassium chloride 8 mEq p.o. daily. 8. Olin 7.5, 1 p.o. q.6 p.r.n. 9. Ventolin HFA 1 puff inhalation p.r.n. REVIEW OF SYSTEMS: Fourteen point review of systems conducted with the patient. He denied fever, chills, nausea, vomiting. Positive for shortness of breath and orthopnea, dyspnea on exertion. Negative for chest pain. All other systems were reviewed and found to be negative. PHYSICAL EXAMINATION: VITAL SIGNS: Temperature 98.9 degrees, pulse 92, respirations 20, blood pressure 140/87, oxygen saturation 98% on room air. GENERAL: A pleasant 46-year-old male, lying in the ER stretcher. He is overweight. Answers all questions appropriately. Is in no acute distress. HEENT: Head is atraumatic, normocephalic. Pupils equal, round, reactive to light. Extraocular eye movement intact. Sclerae is anicteric. Conjunctiva is pink. Oral mucosa is moist. NECK: Supple. Mild JVD noted. Trachea is midline. No cervical lymphadenopathy. CARDIAC: S1-S2 appreciated. No murmurs, gallops, rubs. Regular sinus rhythm on monitor. LUNGS: Bilateral crepitations noted throughout the lung bess. No rhonchi, no rales. Symmetrical rise and fall with respirations. Decreased bilaterally. ABDOMEN: Protuberant, soft, nondistended, nontender. Bowel sounds present in all 4 quadrants. Normoactive. No pulsatile mass. No organomegaly. EXTREMITIES: Trace lower extremity edema, nonpitting. 2+ pedal pulses. No clubbing or cyanosis. NEUROLOGICAL: Alert and oriented x3. Cranial nerves 2-12 grossly intact. GENITOURINARY: The patient voids, otherwise deferred. SKIN: Warm, dry, intact. No acute lesions or rash. DIAGNOSTIC DATA: Chest x-ray shows increased pulmonary vascular markings. CT angiogram excluded a pulmonary embolism. It did show bilateral pleural effusions. LABORATORY DATA: WBC 9.03, hemoglobin 12.1 hematocrit 38.3, platelet count 233,000. PT is 12, INR 1.13, D-dimer 2.11. ABG within normal limits. Sodium 141, potassium 4, chloride 104, carbon dioxide 25, BUN 20, creatinine 1.3, glucose 118. CK 442. CK-MB 877, proBNP 3881. Urine: 70 protein, moderate leukocytes, and 10-20 WBCs. ASSESSMENT AND PLAN: 1. Congestive heart failure exacerbation. Will order an echocardiogram. Lasix was given in the emergency room. We will continue 40 mg IV b.i.d., continue his ANAIS inhibitor and beta rodri. 2. Chronic obstructive pulmonary disease. The patient is not wheezing, does not appear to be in an exacerbation. We will continue his Ventolin HFA inhaler. 3. Diabetes mellitus. Continue home insulin. Check fingerstick blood sugar before meals and at bedtime. Add low-dose sliding scale. 4. Hypertension. As noted, continue lisinopril and Coreg. Labetalol 20 mg IV was given in the emergency room. Blood pressure was significantly lower after it and the Lasix. We will continue to monitor. 5. Chronic renal insufficiency. The patient is at his baseline. Aware. 6. Asthma. As noted above, Ventolin HFA will be continued. 7. Further recommendations per patient's clinical course. Dictated by MEETA Luevano for Augustin Blevins MD cc: MEETA Luevano MD Moses Awoniyi, MD Ashish K. Basu, MD
--- NOTE | 2017-03-02 07:21 | Diag Imaging Result Doc PS360 ---
EXAM: CHEST-2 VIEWS HISTORY: CP TECHNIQUE: COMPARISON: 12/26/2015 FINDINGS: Interval development of cardiomegaly. There are small pleural effusions. There is basilar atelectasis and possibly infiltrates in the lower right lung. The apices remain clear. IMPRESSION: Cardiomegaly with small pleural effusions and basilar atelectasis. Electronically signed by Zachery Salas 03/02/2017 7:19 AM
--- NOTE | 2017-03-02 07:54 | Diag Imaging Result Doc PS360 ---
EXAM: ANGIOGRAM/PULMONARY ARTERIES INDICATION: sob, cp, elevated ddimer COMPARISON: Unenhanced CT chest dated 07/14/2016 FINDINGS: There is no evidence of pulmonary embolism. There is no evidence of thoracic aortic aneurysm. There is marked cardiomegaly that appears worse than the previous study. There is extensive mediastinal and hilar lymphadenopathy that is nonspecific. This is also seen on the previous study but it appears at least slightly worse. For reference, there is a prominent lymph node in the AP window measuring approximately 3.5 x 2.1 cm axially. There is milder supraclavicular lymphadenopathy. There is interstitial thickening throughout the lungs suggesting pulmonary edema. There are also ill-defined groundglass infiltrates bilaterally with a basilar predominance suggesting edema most likely. There does appear to be bronchial mucosal thickening throughout but most prominent at the bases suggesting bronchitis. There are vaguely nodular infiltrates in both upper lobes, especially on the right near the apex. This is similar to the previous study. It may represent a chronic infectious process. There is an approximately stable noncalcified pulmonary nodule in the right middle lobe measuring up to 7.2 mm axially. There is a moderate-sized right pleural effusion and a small left effusion with bilateral fissural fluid. There is atelectasis at both mid and lower lung zones. IMPRESSION: 1.Bilateral interstitial infiltrates and groundglass opacities most compatible with pulmonary edema. 2.Bilateral effusions, largest on the right, with associated atelectasis. 3.Fine nodular infiltrates seen mainly in both upper lung zones and more prominent on the right that are essentially stable. 4.Stable noncalcified pulmonary nodule in the right middle lobe. 5.Marked cardiomegaly that appears worse than the previous study. 6.Extensive nonspecific mediastinal and hilar lymphadenopathy that is probably marginally worse than the previous study. 7.No evidence of pulmonary embolism. Electronically signed by Ashok Donaldson 03/02/2017 7:51 AM
[2017-03-02] MEDS: NORCO-7.5 PO PRN ×3 (08:01→20:17)
[2017-03-02] MEDS: HUMULIN 70/30 SUBQ SCH ×2 (08:02→20:06)
[2017-03-02] MEDS: MICRO-K PO SCH (08:03)
[2017-03-02] MEDS: PRINIVIL PO SCH (08:06)
[2017-03-02] MEDS ORDERED: COREG PO SCH (09:00)
[2017-03-02 12:26] LABS: CK INDEX 2.5 (0.0-2.5); CK-MB 7.98 ng/mL (0.0-5.0)
--- NOTE | 2017-03-02 13:12 | CONSULTATION ---
DATE OF CONSULTATION: 03/02/2017 REASON FOR CONSULT: Mediastinal adenopathy. HISTORY OF PRESENT ILLNESS: This is a 46-year-old, male who came to the ER with several days of dyspnea. He has a history of congestive heart failure and COPD. A chest x-ray was performed which showed cardiomegaly with small pleural effusions and basilar atelectasis. A D- dimer was also performed which was elevated at 2.1. A pulmonary arteriogram was then obtained which was negative for pulmonary embolism, but did show extensive nonspecific mediastinal and hilar lymphadenopathy that was marginally worse than when compared to previous study dated 07/14/2016. Lergest lymph node was 3.5cm. It did also show bilateral interstitial infiltrates and pulmonary edema. Bilateral effusions, right greater than left with atelectasis. Patient has had a previous renal stone CT of abdomen and pelvis in October, that showed no splenomegaly and no lymphadenopathy. It did show some nonspecific shotty and celiac lymph nodes. The patient has been admitted for further evaluation and treatment. REVIEW OF SYSTEMS: Are negative unless indicated in the HPI. ALLERGIES: There are no known allergies. HOME MEDICATIONS: 1. [place]. 2. Lasix. 3. Potassium chloride. 4. Humulin 70/30. 5. Metformin. 6. Coreg. 7. Lisinopril. 8. Ventolin. PAST MEDICAL HISTORY: 1. Insulin-dependent diabetes mellitus. 2. COPD. 3. Congestive heart failure. 4. Hypertension. 5. Chronic renal insufficiency. 6. Asthma. FAMILY/SOCIAL HISTORY: The patient is disabled and has a 20 pack year history of smoking cigarettes. He occasionally still smokes cigarettes. Denies any current alcohol or illicit drug usage, although he apparently had a prior alcohol and illicit drug problem. PHYSICAL EXAMINATION: Vital Signs: Stable. General: This is an male in no acute distress. HEENT: Head is normocephalic, atraumatic. Pupils equal, round , symmetric. Cardiovascular: S1, S2 audible to auscultation with no heaves, lifts, thrills, or murmurs. Pulmonary: There are some crackles to bilateral bases with normal respiratory effort. Extremities: There is some trace bilateral lower extremity edema. Neurologic: Alert and orient x3. GI: Positive bowel sounds. The abdomen is soft, nondistended. Skin: No petechiae, ecchymosis or rashes. Psychiatric: Appropriate to the situation. DIAGNOSTIC DATA: CTA and chest x-ray as above. White count is 9.03, hemoglobin 12.1, hematocrit 38.3, platelet count is 233,000. Sodium is 141, potassium 4.0. BUN is 2.0 and creatinine is 1.3. ASSESSMENT AND PLAN: 1. Congestive heart failure exacerbation per primary team. 2. Mediastinal lymphadenopathy may be benign versus low-grade lymphoma. Check ANAIS level and outpatient PET if insurance approves. 3. Chronic obstructive pulmonary disease per the primary team. 4. Diabetes mellitus. Continue home insulin. 5. Chronic renal insufficiency. At his baseline. Dictated by MEETA Mcfadden for Donovan Harrsi MD cc: MEETA Mcfadden MD MTDD
--- NOTE | 2017-03-02 14:46 | CONSULTATION ---
DATE OF CONSULTATION: 03/02/2017 INDICATION FOR THE CONSULTATION: Congestive heart failure. HISTORY OF PRESENT ILLNESS: Mr. Smith is a 46-year-old black male, who normally follows with me in clinic. He presented for evaluation of shortness of breath that seems like it has been worse over the last several days to a week or so. He has not been on his medication for some time. He is unclear exactly how long it is, but it may be up to a month. He previously was on disability related to his congestive heart failure, but at some point he thinks he may have lost this and that is why his checks stopped coming in. He has not had any overt chest pain. He has no fevers. He has not had any heart racing. No syncope. PAST MEDICAL HISTORY: 1. Significant for a nonischemic cardiomyopathy. Cardiac catheterization showed normal coronaries in 2012. His most recent ejection fractions appear to be in the 30% to 35% range. 2. Hypertension. 3. COPD. 4. Diabetes mellitus. 5. Morbid obesity. 6. Previous history of alcohol abuse. SOCIAL HISTORY: Disability related to congestive heart failure. Quit smoking around a year ago. Previous alcohol use. Previous cocaine use, but none current. REVIEW OF SYSTEMS: Ten system review of systems is negative except for those things mentioned in the HPI. PHYSICAL EXAMINATION: Vital Signs: He is afebrile. Heart rate is 75, blood pressure is 123/88. Here on presentation, it was 140/87. His I's and O's thus far have been poorly recorded. Roughly negative 100 mL. General: Generally, he is in no acute distress. HEENT: Oropharynx is moist. Poor dentition. Eye examination reveals pink conjunctivae, white sclerae. Neck: Examination shows no obvious thyromegaly or thyroid tenderness. Cardiovascular: He is in a regular rate and rhythm. He has no obvious murmurs. He has no S3. He has no lower extremity edema. His JVP does appear to be somewhat elevated, but he has a short somewhat obese neck. Chest: Exam is clear bilaterally. He has no increased work of breathing. Abdomen: Soft, nontender, nondistended. He has no obvious organomegaly. Skin Exam: Warm and dry throughout. Neurological: He has a nonlateralizing exam. He has good strength. He is ambulatory without any unsteadiness of his gait. Psychiatric: Alert, oriented, pleasant. He has a normal mood and affect. PERTINENT DATA: He had a pulmonary arteriogram demonstrating bilateral effusions. Evidence for pulmonary edema. Hilar adenopathy noted, as well as mediastinal adenopathy. Electrocardiogram demonstrated sinus rhythm, rate of 95 beats per minute. No ischemic changes. No evidence for old infarct. ASSESSMENT: 1. History of systolic failure. 2. Noncompliance with medications. PLAN: The patient has been resumed on some of his previous medications. He has been put on IV Lasix. His lisinopril is at 20 mg daily. I will decrease his carvedilol from 12.5 p.o. daily. We will put him on 3.125 p.o. b.i.d. Continue to diurese him for now. We will follow up on the echo results. cc: James Waters MD
--- NOTE | 2017-03-02 15:31 | ECHO REPORT ---
ORDER DATE: 03/02/2017 PROCEDURE: Echocardiogram. DATE OF STUDY: 03/02/2017. ECHOCARDIOGRAPHIC MEASUREMENTS: 1. Interventricular septum 1.4 2. Left ventricular posterior wall 1.3. 3. Diastolic diameter 6.4. 4. Left atrium 4.5. 5. Aorta 3.2. INTERPRETATION: 1. Aortic valve leaflets were trileaflet. 2. Pulmonic valve was normal. 3. Tricuspid valve was normal. 4. Mitral valve was normal. 5. Left ventricle was dilated with severely reduced systolic function. Estimated ejection fraction of 20% to 25%. 6. Peak velocity across the aortic valve less than 2 m/sec. There is no aortic stenosis or regurgitation. 7. There is mild mitral regurgitation. 8. Moderate tricuspid regurgitation. Peak velocity across the tricuspid valve was 3.7 m/sec. 9. Pulmonary artery systolic pressure of 66 mmHg. There is mild pulmonary regurgitation. 10. There is no pericardial effusion or obvious intracardiac mass or thrombus seen. cc: MD Eloy Kimbrough CRNP
[2017-03-02] MEDS: COREG PO SCH (20:05)
[2017-03-02 20:20] LABS: CK INDEX 2.3 (0.0-2.5); CK-MB 7.64 ng/mL (0.0-5.0)
[2017-03-03] MEDS: LOVENOX SUBQ SCH (01:50)
[2017-03-03] MEDS: LASIX IV SCH ×2 (01:50→13:41)
[2017-03-03] MEDS: NORCO-7.5 PO PRN ×4 (01:57→22:17)
[2017-03-03] MEDS: HUMALOG SUBQ SCH ×4 (06:29→20:44)
[2017-03-03] MEDS: MICRO-K PO SCH (08:07)
[2017-03-03] MEDS: PRINIVIL PO SCH ×3 (08:07→13:42)
[2017-03-03] MEDS: COREG PO SCH ×2 (08:07→20:44)
[2017-03-03] MEDS: HUMULIN 70/30 SUBQ SCH ×2 (08:07→20:45)
[2017-03-03 08:23] LABS: MANUAL DIFF NEEDED? NO
[2017-03-03 08:27] LABS: BASO% 0.2 % (0.0-0.8); EOS# 0.13 X1000 (0.0-0.7); EOS% 1.6 % (0.0-10.0); HEMATOCRIT 36.8 % (42.0-52.0); HEMOGLOBIN 11.5 g/dL (14.0-18.0); IMM GRAN# 0.02 X1000 (0.0-0.04); IMM GRAN% 0.2 % (0.0-0.5); LYMPH# 1.87 X1000 (1.2-3.4); LYMPH% 22.3 % (20.5-51.1); MCH 27.1 PG (27-31); MCHC 31.3 g/dL (33-37); MCV 86.8 FL (81-99); MONO# 0.57 X1000 (0.11-0.59); MONO% 6.8 % (1.7-9.3); MPV 10.1 FL (7.4-10.4); NEUT% 68.9 % (42.2-75.2); PLT 213 X1000 (130-400); RBC 4.24 XMIL (4.7-6.1)
[2017-03-03 09:05] LABS: AGAP 13; BUN 25 mg/dL (8-22); CALCIUM 8.7 mg/dL (8.8-10.2); CHLORIDE 101 mmol/L (98-107); COSMO 284; MAGNESIUM 1.8 mg/dL (1.5-2.7); SODIUM 140 mmol/L (136-145); TCO2 26 mmol/L (25-35)
--- NOTE | 2017-03-03 14:34 | PROGRESS NOTE ---
DATE: 03/03/2017 SUBJECTIVE: The patient is sitting up in bed eating breakfast. He states that his shortness of breath is slowly improving. OBJECTIVE: Vital Signs: Temperature 97.5 degrees, blood pressure 130/95, heart rate 73, respirations 16, O2 saturations 96% on 3 L nasal cannula. General: This is a morbidly obese male, lying in bed in no acute distress. Head: Normocephalic, atraumatic. Heart: S1, S2. Normal. Regular rate and rhythm. Lungs: Equal air entry bilaterally. No crackles, no rales. Abdomen: Positive bowel sounds. Soft, obese, nontender, nondistended. Extremities: No edema. No cyanosis. No calf tenderness. Neurologic: The patient is alert and oriented x3. LABS: White blood cell count 8.3, hemoglobin 11, hematocrit 36, platelets 213. Sodium 140, potassium 4, chloride 101, CO2 26, BUN 25, creatinine 1.2, glucose 104, magnesium 1.8. ASSESSMENT AND PLAN: 1. Acute on chronic systolic congestive heart failure exacerbation. Continue to diurese the patient with Lasix. Further medication adjustments as per the tunnel kiln firer. 2. Nonischemic cardiomyopathy. The patient's ejection fraction has decreased on the echocardiogram from yesterday to 20% to 25%. The patient may need a life vest. This will be decided by the tunnel kiln firer. 3. Diabetes mellitus type 2. Continue on Humulin 70/30 plus sliding scale insulin. 4. Hypertension. We will continue on Coreg and lisinopril. 5. Deep vein thrombosis prophylaxis. Continue on Lovenox. DISPOSITION: The patient states that his insurance coverage will run out starting tomorrow. We will consult Real Estate Firm Manager for assistance with home medications. cc: Velma Payne MD
--- NOTE | 2017-03-03 15:02 | PROGRESS NOTE ---
DATE: 03/03/2017 SUBJECTIVE: Mr. Smith reports he is breathing somewhat better today. PHYSICAL EXAMINATION: Vital Signs: He has been afebrile. Heart rate is 73. Blood pressure of 130/95. His I's and O's appear to be negative on the order of around 2.5 L. General: He is in no acute distress. Cardiovascular: Regular rate and rhythm. He has no obvious murmurs. He has no lower extremity edema. He does have an elevated JVP of around 11-12 cm of water. He has no murmurs present. Lungs: Chest exam sounds relatively clear. No increased work of breathing. Abdomen: Soft, nontender, and nondistended. He has no obvious organomegaly. Skin Exam: Warm and dry throughout. PERTINENT DATA: He had an echocardiogram performed yesterday showing an EF of 20% to 25%, RV systolic pressure of 66. He had a dilated left ventricle with mild LVH. His laboratory data shows a white count of 8.4, hematocrit 36, and platelet count 213,000. His sodium is 140, potassium 4, BUN 25, creatinine 1.2, and his magnesium level was 1.8. Cardiac enzymes were negative on multiple sets. ASSESSMENT: 1. Nonischemic cardiomyopathy. 2. Noncompliance with medications. PLAN: I agree with the current medications and continued level of diuresis. He seems to be improving. We will add in a proBNP in the morning. The patient certainly needs consideration for a defibrillator in the future; however, he has been noncompliant with his followup. We will [facility] and will continue medication adjustments if possible, and then likely consider referral to EP for possible defibrillator. cc: James Waters MD
[2017-03-04] MEDS: LOVENOX SUBQ SCH (03:39)
[2017-03-04] MEDS: LASIX IV SCH ×2 (03:39→16:21)
[2017-03-04] MEDS: NORCO-7.5 PO PRN ×2 (05:14→20:08)
[2017-03-04 06:04] LABS: AGAP 10; BUN 26 mg/dL (8-22); CALCIUM 8.6 mg/dL (8.8-10.2); CHLORIDE 101 mmol/L (98-107); COSMO 285; MAGNESIUM 1.9 mg/dL (1.5-2.7); POTASSIUM 4.3 mmol/L (3.5-5.1); SODIUM 140 mmol/L (136-145); TCO2 29 mmol/L (25-35)
[2017-03-04] MEDS: HUMALOG SUBQ SCH ×4 (06:22→20:11)
[2017-03-04] MEDS: HUMULIN 70/30 SUBQ SCH ×2 (09:30→20:12)
[2017-03-04] MEDS: MICRO-K PO SCH (09:30)
[2017-03-04] MEDS: COREG PO SCH ×2 (09:30→20:10)
[2017-03-04] MEDS: PRINIVIL PO SCH (09:33)
--- NOTE | 2017-03-04 13:01 | PROGRESS NOTE ---
DATE: 03/04/2017 SUBJECTIVE: The patient is sitting up in bed. He has no complaints at this time. No acute events noted overnight. OBJECTIVE: Vital Signs: Temperature 97.6 degrees, blood pressure 114/77, heart rate 72, respirations 16, O2 saturations 97% on room air. General: This is a morbidly obese male, lying in bed, in no acute distress. Head: Normocephalic atraumatic. Heart: S1, S2. Normal. Regular rate and rhythm. Lungs: Clear to auscultation bilaterally. Abdomen: Positive bowel sounds. Soft, nontender, nondistended. Extremities: No edema. No cyanosis. No calf tenderness. Neurologic: The patient is alert and oriented x3. LABS: Sodium 140, potassium 4.3, chloride 101, CO2 29. BUN 26, creatinine 1.3 , glucose 115. Phosphorus 4.7, magnesium 1.9. ASSESSMENT AND PLAN: 1. Acute on chronic systolic congestive heart failure exacerbation. Improved. We will order a chest x-ray. Will defer to the forestry biology specialist regarding transition to oral Lasix. 2. Nonischemic cardiomyopathy. Management as per the forestry biology specialist. 3. Morbid obesity. Will consult the dietitian. 4. Hypertension. Controlled. 5. Diabetes mellitus type 2. Continue on Humulin 70/30. 6. Deep vein thrombosis prophylaxis. Continue on Lovenox. 7. TRU. Most likely diuretic induced. Monitor closely while on lasix. 8. Disposition. The patient will be discharged home once cleared by the forestry biology specialist. cc: Velma Payne MD MTDD
--- NOTE | 2017-03-04 13:47 | PROGRESS NOTE ---
DATE: 03/04/2017 SUBJECTIVE: Mr. Smith reports he feels somewhat better. He had no issues with lightheadedness or passing out over the last 24 hours. He has had no chest pain. PHYSICAL EXAMINATION: Vital Signs: He is afebrile. Heart rate is in the 70s, blood pressure 114/77. His I's and O's have been negative, around 3200 mL over the last 24 hours. General: No acute distress. Cardiovascular: He is in a regular rate and rhythm. He has no murmurs. No S3. He has no lower extremity edema. He does continue to have an elevated JVP present. LABS: His proBNP is 1958, which is down from 3881. ASSESSMENT: Acute systolic heart failure. PLAN: We will continue with diuresis in the patient. His proBNP is down, but his JVP continues to be up. I will recommend 1 more day of admission likely, and continued diuresis. He had a 3 second pause on his telemetry, which was asymptomatic. I would continue to treat him as such as we are presently. cc: James Waters MD
--- NOTE | 2017-03-04 14:00 | Diag Imaging Result Doc PS360 ---
CHEST-2 VIEWS - 03/04/2017 INDICATION: pulmonary edema TECHNIQUE: COMPARISON: 03/01/2017 FINDINGS: Stable cardiomegaly. Stable trace pleural effusions. Stable pulmonary vascular congestion. Stable focal infiltrate in the right midlung and the right lung base. These infiltrates are mainly alveolar. IMPRESSION: No change from prior. Cardiomegaly, pleural effusions, indeterminate infiltrates in the right lung. Electronically signed by Gutierrez Palm 03/04/2017 1:57 PM
[2017-03-05] MEDS: LASIX IV SCH ×2 (03:06→14:25)
[2017-03-05] MEDS: LOVENOX SUBQ SCH (03:07)
[2017-03-05] MEDS: NORCO-7.5 PO PRN ×2 (03:11→10:08)
[2017-03-05] MEDS: HUMALOG SUBQ SCH ×2 (06:34→12:10)
[2017-03-05] MEDS ORDERED: INSULIN PEN NEEDLES ONE (07:18)
[2017-03-05 07:24] LABS: AGAP 9; BUN 27 mg/dL (8-22); CALCIUM 8.8 mg/dL (8.8-10.2); CHLORIDE 97 mmol/L (98-107); COSMO 278; POTASSIUM 4.4 mmol/L (3.5-5.1); SODIUM 136 mmol/L (136-145); TCO2 30 mmol/L (25-35)
[2017-03-05] MEDS: HUMULIN 70/30 SUBQ SCH (10:00)
[2017-03-05] MEDS: PRINIVIL PO SCH (10:00)
[2017-03-05] MEDS: MICRO-K PO SCH (10:00)
[2017-03-05] MEDS: COREG PO SCH (10:00)
--- NOTE | 2017-03-05 12:39 | PROGRESS NOTE ---
DATE: 03/05/2017 SUBJECTIVE: The patient is resting comfortably in bed. He states that he feels about the same. No acute events noted overnight. OBJECTIVE: Vital Signs: Temperature 98.4 degrees, blood pressure 125/76, heart rate 71, respirations 16, O2 saturations 100% on 2 L nasal cannula. General: This is a morbidly obese male, lying in bed, in no acute distress. Head: Normocephalic atraumatic. Heart: S1, S2. Normal. Regular rate and rhythm. Lungs: Equal air entry bilaterally. No crackles. No rales. Abdomen: Positive bowel sounds. Soft, obese, nontender, nondistended. Extremities: No edema. No cyanosis. No calf tenderness. Neurologic: The patient is alert and oriented x3. LABS: Sodium 136, potassium 4.4, chloride 97, CO2 30, BUN 27, creatinine 1.3, glucose 110. ASSESSMENT AND PLAN: 1. Acute on chronic systolic congestive heart failure exacerbation. Continue on the current treatment plan as directed by the district wildlife manager. 2. Nonischemic cardiomyopathy. Management as per the district wildlife manager. 3. Acute kidney injury. Stable. Will continue to monitor this closely while on Lasix therapy. 4. Morbid obesity. The patient has been seen by the dietitian and given diet recommendations. 5. Diabetes mellitus type 2. Continue on Humulin 70/30, plus sliding scale insulin. Disposition. The patient's oxygen saturation after ambulation on room air was 82 % today. The patient will need home oxygen. Will consult hospital social worker to assist. cc: Velma Payne MD MTDD
--- NOTE | 2017-03-05 14:28 | PROGRESS NOTE ---
DATE: 03/05/2017 SUBJECTIVE: Mr. Smith reports he feels better. He has been ambulatory over the course of the day. OBJECTIVE: Vital Signs: On physical examination, he is afebrile. His heart rate is 71, blood pressure 125/76. His I's and O's appear to be negative over the course of the hospitalization on a order of 7.9 L. General: He is in no acute distress. Cardiovascular: He is in a regular rate and rhythm. He has no lower extremity edema. He has warm and well perfused lower extremities. Chest: Exam sounds clear bilaterally. He has no increased work of breathing. Abdomen: Soft, nontender. PERTINENT DATA: His sodium is 136, potassium 4.4, his BUN is 27 and creatinine is 1.3. ProBNP 2044. ASSESSMENT: Nonischemic cardiomyopathy. PLAN: I have added in Aldactone 12.5 mg daily. He has been re-initiated on his lisinopril; I would send him home on the 20 mg of lisinopril as well. He is on Coreg 3.125 b.i.d., which I would continue at that dose. I would not continue him on his home potassium regimen with the addition of the Aldactone. I will set him up in the office to see me within 2 weeks, and we will ensure that he has a follow up BMP in 1 week with the result faxed to my office. cc: James Waters MD
[2017-03-05 15:45] VITALS: BP 136/98
[2017-03-06] MEDS ORDERED: ALDACTONE PO SCH (09:00)
--- NOTE | 2017-03-14 19:22 | DISCHARGE SUMMARY ---
ADMISSION DATE: 03/02/2017 DISCHARGE DATE: 03/05/2017 FINAL DISCHARGE DIAGNOSES: 1. Acute on chronic systolic congestive heart failure exacerbation. 2. Nonischemic cardiomyopathy with an ejection fraction of 20-25%. 3. Acute kidney injury secondary to diuretic therapy. 4. Morbid obesity. 5. Diabetes mellitus type 2. CONSULTATIONS REQUESTED DURING THIS HOSPITAL STAY: Cardiology consultation with Dr. Waters. HOSPITAL COURSE: Mr. Smith is a 46-year-old male who is morbidly obese who presented to the ER with a chief complaint of shortness of breath. A chest x-ray was done in the ER that revealed pulmonary edema. The patient was admitted with a presumptive diagnosis of CHF exacerbation. The patient's last ejection fraction in 2014 was noted to be around 35%. The patient was started on IV Lasix to aid with diuresis. A repeat echocardiogram was done during the hospitalization which revealed an ejection fraction of 20-25%. Adjustments were made to the patient's cardiac medications during the hospital stay. The patient was also seen by dietitian as well as physical therapist. The patient was advised to lose weight and cut back on salt and fluid intake. The patient responded well to diuretic therapy and was ultimately cleared for discharge on 03/05/2017. The patient was noted to be hypoxic when ambulating on room air so arrangements were made for the patient to be provided with home oxygen prior to discharge. DISCHARGE MEDICATIONS: 1. Aldactone 12.5 mg p.o. daily. 2. Aspirin 81 mg p.o. daily. 3. Humulin 70/30 15 units subcutaneous with breakfast. 4. Ventolin 1 puff inhaled every 4 hours p.r.n. for shortness of breath. 5. Coreg 12.5 mg p.o. daily. 6. Lasix 40 mg p.o. daily. 7. Lisinopril 20 mg p.o. daily. 8. [place] 7.5/325 one tab oral every 6 hours p.r.n. for pain. DISCHARGE DIET: Low sodium, low cholesterol, 1800 ADA diet. ACTIVITY: As tolerated. FOLLOWUP INSTRUCTIONS: The patient will need to follow up with Dr. James Waters as scheduled by [facility]. cc: Velma Payne MD
== END 2017-03-05 16:27 | disposition home or self-care (01) ==
LOC: ED 20:27 → 4N 03-02 02:53 → SUATTDRO 03-02 02:53
PROVIDERS: ATTEND Internal Medicine

== ENCOUNTER 2019-01-21 07:26 | Inpatient (IN) ==
--- NOTE | 2019-01-21 07:46 | PROVIDER DOCUMENTATION ---
HPI-Chest Pain - General Chief Complaint: Chest Pain Stated Complaint: SOB/CHEST PAIN Time Seen by Provider: 01/21/19 07:41 Source: patient Allergies/Adverse Reactions: Patient Allergies Allergy/AdvReac Type Severity Reaction Status Date / Time No Known Allergies Allergy Verified 01/21/19 08:24 Home Medications: Home Medication List Medication Instructions Recorded Confirmed Last Taken Type Carvedilol [Coreg] 6.25 mg PO BID #60 tab 01/18/18 01/21/19 1 Day Ago Rx ~01/20/19 Furosemide [Lasix] 40 mg PO BID #60 tab 01/18/18 01/21/19 1 Day Ago Rx ~01/20/19 Insulin Humulin 70/30 [Humulin 30 unit SUBQ BID #5 insuln.pen 01/18/18 01/21/19 1 Day Ago Rx 70/30] ~01/20/19 Rivaroxaban [Xarelto] 15 mg PO QAM 01/21/19 01/21/19 1 Day Ago History ~01/20/19 - History of Present Illness-CP Nature of Presenting Problem: Patient presents via ambulance with shortness of breath. He has had increased exertional SOB over the past 5 days. At 4 am today he awoke short of breath. He is on CPAP and O2 at home. He has some tightness in his chest. He has had a 5 lb weight gain in the past 2 days. Location: reports: central Chest Pain Radiation: reports: no radiation Quality of Pain: reports: fullness Severity in ED: moderate Onset/Duration: abrupt, 1-3 hours ago Timing: still present Context/Activities at Onset: reports: none Modifying Factors: improves with: movement Associated Symptoms: reports: fatigue Nitro Today/Relief: no nitro taken today Aspirin Treatment Today: no aspirin today Prior Chest Pain/Cardiac Workup: reports: no prior chest pain Similar Symptoms Previously?: Yes Recently Seen Here or By Another Healthcare Provider: No Review of Systems - Adult - REVIEW OF SYSTEMS - ADULT Constitutional: reports: no symptoms reported Eyes: reports: no symptoms reported Ears, Nose, Mouth & Throat: reports: no symptoms reported Cardiovascular: reports: see HPI Respiratory: reports: see HPI Gastrointestinal: reports: no symptoms reported Genitourinary: reports: no symptoms reported Musculoskeletal: reports: no symptoms reported Integumentary: reports: no symptoms reported Neurological: reports: no symptoms reported Psychiatric: reports: no symptoms reported Endocrine: reports: no symptoms reported Hematologic/Lymphatic: reports: no symptoms reported Allergic/Immunologic: reports: no symptoms reported Past History - Adult - PAST MEDICAL HISTORY-ADULT Review of Records: reports: Old Records Reviewed, Nursing Assessment Review Major Childhood Illnesses: reports: denies history Cardiovascular: reports: CHF, HTN, hyperlipidemia Respiratory: reports: asthma, COPD, sleep apnea Gastrointestinal: reports: denies history Obstetrical/Gynecological: reports: denies history Genitourinary: reports: denies history, kidney disease Musculoskeletal: reports: denies history Neurological: reports: denies history Endocrine/Immune: reports: Diabetes Other Conditions: reports: denies history - PRIOR SURGERIES/PROCEDURES Surgical/Procedure History: reports: appendectomy, tonsillectomy, other (defib) - IMMUNIZATION STATUS Childhood Immunizations: See Nurse Assessment Flu Vaccine: See Nurse Assessment - FAMILY HISTORY Family History: reviewed, not pertinent Physical Exam-General - PHYSICAL EXAM-ADULT Initial Vital Signs Reviewed: Yes - CONSTITUTIONAL General Appearance: mild distress, obese - EYES Eyes: PERRL/EOMI - HEAD, EARS, NOSE, MOUTH & THROAT HENMT: normocephalic/atraumatic, moist mucous membranes, normal ENT inspection, TMs normal, pharynx normal - NECK Neck: non-tender, full range of motion, supple - RESPIRATORY Respiratory: chest non-tender, rales - CARDIOVASCULAR Cardiovascular: normal peripheral pulses, regular rate, rhythm, no edema - GASTROINTESTINAL (ABDOMEN) Abdominal Exam: normal bowel sounds, non tender, soft, no organomegaly, no pulsatile mass - LYMPHATIC Lymphatic: no adenopathy - MUSCULOSKELETAL Back Exam: normal inspection, no CVA tenderness Extremity: normal range of motion, non-tender - SKIN Integumentary: normal color, normal turgor, warm/dry - NEUROLOGIC Neurologic: grossly normal - PSYCHIATRIC Psych/Mental Status: normal mood/affect - HEART Score HEART Score: History: Highly Suspicious HEART Score: ECG: Non-Specific Repolarization Disturbance/LBBB/PM HEART Score: Age: 45-65 Years HEART Score: Risk Factors for Atherosclerotic Disease: 1 or 2 Risk Factors Progress - PLAN OF CARE/RESULTS Progress/Plan/Lab Results: Vital Signs - 8 hr 01/21/19 07:27 01/21/19 07:33 01/21/19 07:40 Temperature 97.8 F Pulse Rate 97 H 83 82 Respiratory Rate 22 28 H 15 Blood Pressure 141/110 141/110 O2 Sat by Pulse Oximetry 100 100 100 01/21/19 07:50 01/21/19 08:00 01/21/19 08:01 Temperature Pulse Rate 84 85 68 Respiratory Rate 4 L 18 0 L Blood Pressure 142/109 O2 Sat by Pulse Oximetry 100 95 95 01/21/19 08:10 01/21/19 08:20 01/21/19 08:22 Temperature Pulse Rate 81 77 72 Respiratory Rate 21 24 7 L Blood Pressure 135/106 O2 Sat by Pulse Oximetry 94 L 99 99 01/21/19 08:23 01/21/19 08:30 01/21/19 08:32 Temperature Pulse Rate 77 78 68 Respiratory Rate 24 25 H 14 Blood Pressure 135/106 125/101 O2 Sat by Pulse Oximetry 97 96 100 01/21/19 08:51 01/21/19 09:00 01/21/19 09:01 Temperature Pulse Rate 87 67 70 Respiratory Rate 24 20 22 Blood Pressure 155/113 O2 Sat by Pulse Oximetry 99 99 96 01/21/19 09:10 01/21/19 09:20 Temperature Pulse Rate 73 86 Respiratory Rate 28 H 24 Blood Pressure O2 Sat by Pulse Oximetry 97 95 Laboratory Results - last 24 hr 01/21/19 01/21/19 01/21/19 07:35 07:35 07:35 WBC 7.21 RBC 4.97 Hgb 13.6 L Hct 44.5 MCV 89.5 MCH 27.4 MCHC 30.6 L RDW Std Deviation 14.5 Plt Count 183 MPV 10.7 H Immature Gran % (Auto) 0.0 Neut % (Auto) 69.3 Lymph % (Auto) 21.4 Moody % (Auto) 7.2 Eos % (Auto) 1.7 Baso % (Auto) 0.4 Immature Gran # (Auto) 0.00 Neut # (Auto) 5.00 Lymph # (Auto) 1.54 Moody # (Auto) 0.52 Eos # (Auto) 0.12 Baso # (Auto) 0.03 PT INR PTT (Actin FS) Specimen Type Sample Site pH pCO2 pO2 HCO3 Base Excess Oxyhemoglobin ABG O2 Sat (Calculated) ABG O2 Saturation ABG Carboxyhemoglobin ABG Methemoglobin Kade Test A-a O2 Difference Total Hemoglobin Lactate Liter Flow Blood Gas Modality FiO2 % Sodium 139 Potassium 4.8 Chloride 104 Carbon Dioxide 26 Anion Gap 9 BUN 22 Creatinine 1.3 H Estimated GFR/1.73 m2 > 60 BUN/Creatinine Ratio 17 Glucose 154 H Calculated Osmolality 284 Calcium 8.8 Total Bilirubin 1.04 H AST 29 ALT 19 Alkaline Phosphatase 221 H Creatine Kinase 365 H Creatine Kinase Index 2.0 CK-MB (CK-2) 7.26 H Troponin T Oru-K-Eqzyxyamksj Pept 2923 H Total Protein 8.5 H Albumin 3.9 Globulin 4.6 Albumin/Globulin Ratio 0.8 01/21/19 01/21/19 01/21/19 07:35 07:35 09:10 WBC RBC Hgb Hct MCV MCH MCHC RDW Std Deviation Plt Count MPV Immature Gran % (Auto) Neut % (Auto) Lymph % (Auto) Moody % (Auto) Eos % (Auto) Baso % (Auto) Immature Gran # (Auto) Neut # (Auto) Lymph # (Auto) Moody # (Auto) Eos # (Auto) Baso # (Auto) PT 25.2 H INR 2.11 PTT (Actin FS) 40.0 Specimen Type ARTERIAL Sample Site R RADIAL pH 7.34 L pCO2 48 H pO2 80 HCO3 24.4 Base Excess -0.5 Oxyhemoglobin 93.7 L ABG O2 Sat (Calculated) 18.9 ABG O2 Saturation 97.8 ABG Carboxyhemoglobin 3.10 H ABG Methemoglobin 1.1 Kade Test YES A-a O2 Difference 74.0 Total Hemoglobin 14.3 Lactate 0.90 Liter Flow 2.5 Blood Gas Modality CANNULA FiO2 % 30.0 Sodium Potassium Chloride Carbon Dioxide Anion Gap BUN Creatinine Estimated GFR/1.73 m2 BUN/Creatinine Ratio Glucose Calculated Osmolality Calcium Total Bilirubin AST ALT Alkaline Phosphatase Creatine Kinase Creatine Kinase Index CK-MB (CK-2) Troponin T 0.017 Xen-Q-Pxaoapridgd Pept Total Protein Albumin Globulin Albumin/Globulin Ratio Orders Category Date Time Status Cardiac Monitoring DIRECTED Care 01/21/19 07:47 Active Oxygen Therapy- ED Nursing DIRECTED Care 01/21/19 07:47 Active Saline Loc NOW Care 01/21/19 07:47 Active CHEST-2 VIEWS [RAD] Stat Exams 01/21/19 07:47 Completed ABG [RESP] Routine Lab 01/21/19 09:10 Completed CBC WITH ELECTRONIC DIFF [HEME] Stat Lab 01/21/19 07:35 Completed CK PROFILE [SP CHEM] Stat Lab 01/21/19 07:35 Completed COMPREHENSIVE METABOLIC PANEL [CHEM] Stat Lab 01/21/19 07:35 Completed PRO B-NATRIURETIC PEPTIDE Stat Lab 01/21/19 07:35 Completed PROTIME WITH INR [COAG] Stat Lab 01/21/19 07:35 Completed PTT [COAG] Stat Lab 01/21/19 07:35 Completed TROPONIN T Stat Lab 01/21/19 07:35 Completed Furosemide [Lasix] Med 01/21/19 07:53 Discontinued 40 mg IV NOW ONE Furosemide [Lasix] Med 01/21/19 09:28 Discontinued 40 mg IV NOW ONE CP/SOB/Palp >45 yrs of Age Stat Oth 01/21/19 07:46 Ordered EKG [EKG] Stat Ther 01/21/19 07:47 Ordered EKG [EKG] Stat Ther 01/21/19 07:48 Ordered Result Diagrams: 01/21/19 07:35 01/21/19 07:35 - REASSESSMENT Reassessment #1 Time Reassessed: 08:39 Status: improving (slight improvement) - EKG 1 Time of EKG reading by physician:: 07:51 EKG Read and Signed by:: Edmundo Ly EKG Interpretation (*Must complete 3 of following elements*): Abnormal Rate: 84 Rhythm: nsr [place]: normal QRS: normal, other (low voltage) CA Interval: normal ST Wave: normal Prior EKG Comparison: unchanged from prior - CONSULTS/PCP/HOSPITALIST Notification #1 *Consult/PCP/Hospitalist*: Dr. Lunsford Time Discussed: 11:04 Reason/Comments: Dr Payne will be admitting doctor Departure - Departure Date of Disposition Decision: 01/21/19 Time of Disposition Decision: 11:06 DIAGNOSIS: CHF (congestive heart failure) Disposition: ADMITTED INPATIENT 09 Certified Medical Emergency: Emergent Condition: Serious Referrals and Follow-Ups: Shola Estrella MD [Primary Care Provider] - - Critical Care Note This patient required my direct & personal management of CC.: No Attestation - Physician/ BAM Attestation Patient care was provided by Advanced Practice Provider:: No The physician spent face to face time with patient:: Yes Advanced Practice Provider documentation review:: Supervising physician onsite and consulted in the evaluation and care of this patient. The physician did have a face to face encounter with the patient.
[2019-01-21] MEDS ORDERED: LASIX IV ONE ×2 (07:53→09:28)
[2019-01-21 08:05] LABS: BASO# 0.03 X1000 (0.0-0.2); BASO% 0.4 % (0.0-0.8); EOS# 0.12 X1000 (0.0-0.7); EOS% 1.7 % (0.0-10.0); HEMATOCRIT 44.5 % (42.0-52.0); HEMOGLOBIN 13.6 g/dL (14.0-18.0); LYMPH# 1.54 X1000 (1.2-3.4); LYMPH% 21.4 % (20.5-51.1); MCH 27.4 PG (27-31); MCHC 30.6 g/dL (33-37); MCV 89.5 FL (81-99); MONO# 0.52 X1000 (0.11-0.59); MONO% 7.2 % (1.7-9.3); MPV 10.7 FL (7.4-10.4); NEUT% 69.3 % (42.2-75.2); PLT 183 X1000 (130-400); RBC 4.97 XMIL (4.7-6.1); RDW 14.5 % (11.5-14.5); WBC 7.21 X1000 (4.8-10.8)
[2019-01-21 08:09] LABS: INR 2.11; PROTIME 25.2 Seconds (11.0-16.0)
[2019-01-21 08:18] LABS: AGAP 9; ALB/GLOB RATIO 0.8; ALBUMIN 3.9 g/dL (3.5-5.0); ALKALINE PHOSPHATASE 221 U/L (32-122); BUN 22 mg/dL (8-22); CALCIUM 8.8 mg/dL (8.8-10.2); CHLORIDE 104 mmol/L (98-107); COSMO 284; CREATININE 1.3 mg/dL (0.7-1.2); ESTIMATED GFR > 60; GLUCOSE 154 mg/dL (70-104); GOT 29 U/L (10-34); GPT 19 U/L (10-44); POTASSIUM 4.8 mmol/L (3.5-5.1); SODIUM 139 mmol/L (136-145); TCO2 26 mmol/L (25-35); TOTAL BILIRUBIN 1.04 mg/dL (0.20-1.00); TOTAL PROTEIN 8.5 g/dL (6.3-8.3)
[2019-01-21 08:20] LABS: CK PROFILE 365 U/L (24-204)
[2019-01-21 08:34] LABS: CK-MB 7.26 ng/mL (0.0-5.0)
--- NOTE | 2019-01-21 08:57 | Diag Imaging Result Doc PS360 ---
CHEST-2 VIEWS - 01/21/2019 INDICATION: chest pain COMPARISON: 06/21/2018 FINDINGS: Stable pacemaker. Stable cardiomegaly. There is pulmonary vascular congestion and mild interstitial pulmonary edema. There are trace pleural effusions. IMPRESSION: Cardiomegaly, pulmonary edema, trace pleural effusions. Electronically signed by Gutierrez Palm 01/21/2019 8:54 AM
[2019-01-21 09:17] LABS: ALLEN TEST YES; BE -0.5 mmoll (-3.0-3.0); BLOOD TYPE ARTERIAL; HCO3-(ACT) 24.4 mmoll (20.0-26.0); METHB 1.1 % (0.0-1.5); O2(CT) 18.9 mL/dL (15.0-23.0); O2HB 93.7 % (95.0-99.0); PCO2(98.6) 48 mmHg (35-45); PO2(98.6) 80 mmHg (60-100); SAMPLE BLOOD; SAO2 97.8 % (95.0-100.0); THB 14.3 g/dL (11.5-17.4); pH(98.6) 7.34 (7.35-7.45)
[2019-01-21 09:18] LABS: MODALITY CANNULA
[2019-01-21] MEDS ORDERED: XOPENEX NEB INH PRN (11:37)
[2019-01-21] MEDS ORDERED: ASPIRIN PO SCH (12:30)
[2019-01-21 13:28] LABS: CK INDEX 2.1 (0.0-2.5); CK-MB 7.57 ng/mL (0.0-5.0)
--- NOTE | 2019-01-21 13:51 | HISTORY AND PHYSICAL ---
CUSTOMS AND IMMIGRATION OFFICER: Dr. James Waters PRIMARY CARE PHYSICIAN: Dr. Shola Estrella CHIEF COMPLAINT: Dyspnea. HISTORY OF PRESENT ILLNESS: Mr. Smith is a 48-year-old male with a history of morbid obesity, type 2 diabetes requiring insulin, nonischemic cardiomyopathy with systolic congestive heart failure and paroxysmal atrial fibrillation, who presents with progressive dyspnea over the past 3 days, acutely worse this morning. He has been having progressive shortness of breath with exertion and orthopnea as well as lower extremity edema. However, this morning he woke up with some mild chest discomfort in the midsternal region with worsening shortness of breath, and he came to the ER for evaluation. The pain in his chest was midsternal, nonradiating and lasted only a few minutes. He is also reporting a cough with clear sputum production. No fever or chills. No nausea, vomiting or diarrhea. He does report some nonspecific abdominal pain in the lower quadrants and in the right upper quadrant as well. In the ER, his chest x-ray showed cardiomegaly, pulmonary edema and trace pleural effusions, and he was also noted to have some mild renal insufficiency, ProBNP of 2923. Troponins thus far are negative. Given the above, we are going to admit him for further treatment and evaluation. PAST MEDICAL HISTORY: 1. Nonischemic cardiomyopathy. 2. Systolic congestive heart failure, ejection fraction of 20% by echocardiogram on 04/22/2018. 3. Type 2 diabetes requiring insulin. 4. Morbid obesity. 5. Essential hypertension. 6. Appears to have chronic renal insufficiency, baseline creatinine around 1.3. 7. Likely sleep apnea. 8. Paroxysmal atrial fibrillation, on Xarelto therapy. PAST SURGICAL HISTORY: He has had an ICD placed. He has also had an appendectomy. SOCIAL HISTORY: He denies tobacco, alcohol or drug use. His girlfriend is at the bedside. REVIEW OF SYSTEMS: A 14-point review of systems is obtained and found to be negative with the exception of the HPI. ALLERGIES: No known drug allergies. HOME MEDICATIONS: Xarelto 15 mg p.o. in the a.m., Coreg 6.25 mg p.o. b.i.d., Humulin 70/30 thirty units subcutaneously b.i.d., Lasix 40 mg p.o. b.i.d. PHYSICAL EXAMINATION: VITAL SIGNS: Blood pressure is 155/113, heart rate 70, respiratory rate is 22, O2 saturation is 96% on nasal cannula. Temperature is 97.8. GENERAL: This is a morbidly obese male lying in hospital bed in no acute distress. NEUROLOGICAL: He is awake and alert, follows commands, no focal deficits. HEENT: Head is atraumatic and normocephalic. Pupils are equal, round and reactive to light. Oral mucosa is moist. Body habitus precludes neck exam. CHEST: Bibasilar crackles. CARDIOVASCULAR: Regular rate and rhythm. S1 and S2 noted. There is a 1/6 systolic ejection murmur noted. GASTROINTESTINAL: Soft, nondistended. He does have very mild right upper quadrant and bilateral lower quadrant tenderness to palpation, although there is no rigidity. Bowel sounds are hypoactive. Abdomen is obese. EXTREMITIES: 2+ edema bilaterally. Pulses diminished, 1+ bilaterally. DIAGNOSTIC DATA: Chest x-ray shows cardiomegaly and pulmonary edema with tiny pleural effusions. EKG is normal sinus rhythm with low voltage, poor R wave progression. WBC is 7.21, hemoglobin 13.6, hematocrit 44.5, platelet count 183. INR is 2.11. ABG on nasal cannula shows pH of 7.34, CO2 of 48, O2 of 80, bicarb 24.4. Sodium is 139, potassium 4.8, chloride 104, CO2 is 26, anion gap is 9, BUN is 22, creatinine 1.3, glucose 154, calcium 8.8. Total bilirubin is 1.04, AST is 29, ALT is 19, alkaline phosphatase 221. CK is 365. CKMB is 7.26 with an index of 2. Troponin is 0.017. ProBNP is 2923. Albumin 3.9. ASSESSMENT AND PLAN: 1. Acute on chronic systolic congestive heart failure. We will with diuresis, following I's and O's and daily weights. We will trend his cardiac enzymes. We will also consult Dr. Waters who is salesperson used cars this weekend and is the patient's primary pants busheler. We will also make sure he is limiting his sodium and fluids. 2. Chronic kidney disease. Creatinine 1.3, which appears to be right around his baseline. GFR is greater than 60, giving him CKD G2. We will monitor his creatinine daily. We will also avoid any nephrotoxins. 3. Type 2 diabetes mellitus. We will continue his home insulin. Add pattern sugars. Sliding scale insulin. Check hemoglobin A1c. 4. Hypertension. Continue home medications. We will add nitroglycerin transdermally so as to assist with blood pressure, preload reduction and heart failure. 5. Paroxysmal atrial fibrillation. Continue his home medications and Xarelto. 6. DVT prophylaxis with his Xarelto. Further recommendations to follow. Dictated by MEETA Richard for Velma Payne MD cc: MEETA Richard MD I performed a face to face encounter on the patient. I reviewed all labs and imaging on the patient. I agree with the H&P as dictated. The patient presented to the ER with a chief complaint of shortness of breath and peripheral edema. On exam, the patient has 2+ edema to the lower extremities. His breath sounds are diminished bilaterally. The patient will be admitted with an acute on chronic systolic CHF exacerbation. Will start IV lasix and consult with the pants busheler. ROCIO
[2019-01-21 14:31] LABS: URINE SOURCE CLEAN CATCH
[2019-01-21 14:37] LABS: BILIRUBIN URINE NEGATIVE (NEGATIVE); BLOOD URINE TRACE (NEGATIVE); COLOR YELLOW; GLUCOSE URINE NEGATIVE (NEGATIVE); KETONE URINE NEGATIVE (NEGATIVE); LEUKOCYTES URINE NEGATIVE (NEGATIVE); NITRITE URINE NEGATIVE (NEGATIVE); PROTEIN URINE TRACE mg/dL (NEGATIVE); TURBIDITY URINE CLEAR (CLEAR); UR EPITHELIAL CELLS <10 /HPF (<10); URINE BACTERIA NEGATIVE /HPF; URINE RBC <10 /HPF (<10); URINE WBC <10 /HPF (<10); UROBILINOGEN URINE 2 mg/dL (NORMAL)
[2019-01-21 14:46] LABS: UR AMPHETAMINES QUAL NONE DETECTED (NONE DETECT); UR BARBITUATES QUAL NONE DETECTED (NONE DETECT); UR BENZODIAZEPIN QUAL NONE DETECTED (NONE DETECT); UR CANNABINOIDS QUAL PRESUMPTIVE POSITIVE (NONE DETECT); UR COCAINE QUAL PRESUMPTIVE POSITIVE (NONE DETECT); UR METHADONE QUAL NONE DETECTED (NONE DETECT); UR OPIATES QUAL NONE DETECTED (NONE DETECT); UR OXYCODONE QUAL NONE DETECTED (NONE DETECT); UR PCP QUAL NONE DETECTED (NONE DETECT)
[2019-01-21] MEDS: XOPENEX NEB INH SCH ×3 (15:51→23:10)
--- NOTE | 2019-01-21 15:57 | CARDIOLOGY CONSULTATION ---
DATE: 01/21/2019 CHIEF COMPLAINT ON PRESENTATION: Dyspnea. HISTORY OF PRESENT ILLNESS: Mr. Smith is a 48-year-old black male with a history of nonischemic cardiomyopathy followed in my clinic. Last visit was in September of 2018. For the last several days he has had worsening shortness of breath and orthopnea. He will note shortness of breath with really any exertion, over an easy walk across a room. He has not had any chest pain. He reports compliance with his medications but possible sodium indiscretion in his diet. PAST MEDICAL HISTORY: His past medical history is significant for: 1. Nonischemic cardiomyopathy. His last ejection fraction by echo was in April of 2018 showing an EF of 15% to 20%, a left ventricle dimension of 6.2 cm, moderate RV systolic dysfunction, and severe left atrial enlargement. His cardiac catheterization was performed in 2012 showing normal coronary arteries. 2. COPD/asthma. 3. ICD implantation which is a Apisphere MRI compatible device. 4. Paroxysmal atrial fibrillation maintained on renally adjusted Xarelto. 5. Hypertension. 6. Hyperlipidemia. 7. Diabetes. 8. Chronic renal insufficiency. 9. Morbid obesity. 10.Sleep apnea. SOCIAL HISTORY: No tobacco, alcohol, or drug use. REVIEW OF SYSTEMS: A 10-system review of systems is negative except for those things mentioned in HPI. FAMILY HISTORY: Significant for hypertension, PHYSICAL EXAMINATION: Vital Signs: He is afebrile. His heart rate is 87. His blood pressure is 124/90. On presentation his blood pressure was 141/110. His input and output thus far have limited data. Generally: He is in no acute distress. HENT: Oropharynx is moist. Normal dentition. Eye Examination: [place] conjunctivae. White sclerae. Neck: Examination shows no obvious thyromegaly or thyroid tenderness. Cardiovascular: He sounds to be in a regular rate and rhythm. He has no obvious murmurs. He has no S3. He has trace to 1+ bilateral lower extremity edema and warm and well perfused lower extremities. His JVP is difficult to estimate secondary to neck girth. Respiratory: His chest exam sounds clear bilaterally. He has no increased work of breathing. Abdomen: Soft, nontender, nondistended. He has no obvious organomegaly. Skin: Warm and dry throughout without any rashes. Neurological: He is moving all extremities well. He has no lateralizing deficits. Psychiatric: He is alert, oriented, and pleasant. He has normal mood and affect. PERTINENT DATA: He had a chest x-ray showing cardiomegaly, pulmonary edema, and trace pleural effusions. His EKG this morning at 7:30 showed sinus rhythm. No ischemic changes. No evidence of infarct. His white count is 7.2, hematocrit 44, and platelet count 183. His INR is 2.1. His sodium is 139, potassium 4.8, BUN 22, and creatinine 1.3. His proBNP was 2923. His cardiac enzymes have thus far been negative. ASSESSMENT: Mr. Smith is a 48-year-old gentleman with a history of nonischemic cardiomyopathy who currently seems to be in heart failure secondary to possible sodium indiscretion. PLAN: I have resumed his home medications which include the Coreg that he was already on. I have added back in his digoxin, Entresto, and spironolactone. We will discontinue his aspirin therapy. He does not have a history of coronary disease. His GFR appears to be above 60 so I will change his Xarelto dose to 20 mg. We will continue to diurese him with IV Lasix and hopefully we can discharge him in the next 2 to 3 days. cc: James Waters MD MTDDread
[2019-01-21] MEDS: HUMULIN R SUBQ SCH ×2 (17:45→22:23)
[2019-01-21] MEDS ORDERED: NORCO-10 PO PRN (18:32)
[2019-01-21] MEDS: NORCO-10 PO PRN (18:49)
[2019-01-21 22:02] LABS: CK INDEX 1.8 (0.0-2.5); CK-MB 6.66 ng/mL (0.0-5.0)
[2019-01-21] MEDS: HUMULIN 70/30 SUBQ SCH (22:22)
[2019-01-21] MEDS: ENTRESTO 24 MG-26 MG TABLET PO SCH (22:22)
[2019-01-21] MEDS: COREG PO SCH (22:22)
[2019-01-22] MEDS: XOPENEX NEB INH SCH ×6 (03:03→23:33)
[2019-01-22] MEDS: HUMULIN R SUBQ SCH ×4 (06:49→22:43)
[2019-01-22 07:16] LABS: BASO# 0.02 X1000 (0.0-0.2); BASO% 0.3 % (0.0-0.8); EOS# 0.08 X1000 (0.0-0.7); EOS% 1.1 % (0.0-10.0); HEMOGLOBIN 13.3 g/dL (14.0-18.0); LYMPH% 19.4 % (20.5-51.1); MCH 27.8 PG (27-31); MCHC 30.9 g/dL (33-37); MONO# 0.64 X1000 (0.11-0.59); MONO% 8.9 % (1.7-9.3); MPV 10.7 FL (7.4-10.4); NEUT# 5.09 X1000 (1.4-6.5); NEUT% 70.3 % (42.2-75.2); PLT 195 X1000 (130-400); RBC 4.78 XMIL (4.7-6.1); RDW 14.6 % (11.5-14.5); WBC 7.23 X1000 (4.8-10.8)
[2019-01-22 07:48] LABS: AGAP 9; BUN 25 mg/dL (8-22); CALCIUM 8.8 mg/dL (8.8-10.2); CHLORIDE 103 mmol/L (98-107); COSMO 281; CREATININE 1.3 mg/dL (0.7-1.2); ESTIMATED GFR > 60; GLUCOSE 48 mg/dL (70-104); MAGNESIUM 2.1 mg/dL (1.5-2.7); POTASSIUM 4.2 mmol/L (3.5-5.1); SODIUM 140 mmol/L (136-145); TCO2 28 mmol/L (25-35)
[2019-01-22] MEDS: LASIX IV SCH ×2 (08:59→20:08)
[2019-01-22] MEDS: ALDACTONE PO SCH (09:00)
[2019-01-22] MEDS: LANOXIN PO SCH (09:00)
[2019-01-22] MEDS: NORCO-10 PO PRN ×2 (09:00→17:52)
[2019-01-22] MEDS: ENTRESTO 24 MG-26 MG TABLET PO SCH ×2 (09:00→20:08)
[2019-01-22] MEDS: XARELTO PO SCH (09:00)
[2019-01-22] MEDS: COREG PO SCH ×2 (09:00→20:08)
[2019-01-22] MEDS ORDERED: XARELTO PO SCH (09:00)
[2019-01-22] MEDS: HUMULIN 70/30 SUBQ SCH (09:01)
[2019-01-22] MEDS ORDERED: FLEET MINERAL OIL ENEMA PR ONE (09:28)
--- NOTE | 2019-01-22 10:25 | Diag Imaging Result Doc PS360 ---
ABDOMEN FLAT/UPRIGHT - 01/22/2019 INDICATION: constipation COMPARISON: 10/19/2017 FINDINGS: There is a nonobstructive bowel gas pattern. No free air or abdominal calcifications. There is no constipation. IMPRESSION: No acute disease. Electronically signed by Gutierrez Palm 01/22/2019 10:23 AM
[2019-01-22] MEDS: MIRALAX PO SCH ×2 (11:08→20:08)
[2019-01-22] MEDS: LACTULOSE PO SCH ×2 (11:08→20:12)
--- NOTE | 2019-01-22 13:18 | PROGRESS NOTE ---
DATE: 01/22/2019 SUBJECTIVE: The patient states that his blood sugar was low this morning and was noted to be 48. He also complains of constipation. OBJECTIVE: Vital Signs: Temperature 97.6 degrees, blood pressure 115/89, heart rate 78, respirations 16, O2 saturation 95% on 2 L nasal cannula. General: This is a morbidly obese male sitting up in bed in no acute distress. Heart: S1, S2 normal. Regular rate and rhythm. Lungs: Equal air entry bilaterally. No crackles. No rales. Abdomen: Positive bowel sounds. Obese, nontender. Extremities: 1+ edema. Neurologic: The patient is alert and oriented x4. LABORATORIES: White blood cell count 7.2, hemoglobin 13, hematocrit 43, platelets 195,000. Sodium 140, potassium 4.2, chloride 103, CO2 28, BUN 25, creatinine 1.3, glucose 48. ASSESSMENT AND PLAN: 1. Acute on chronic systolic congestive heart failure exacerbation. Continue with the current management as directed by the major league baseball umpire. 2. Nonischemic cardiomyopathy, status post automatic implantable cardioverter- defibrillator. 3. Chronic obstructive pulmonary disease. Stable. 4. Constipation. We will start the patient on laxative therapy. 5. Chronic kidney disease. Stable. 6. Diabetes mellitus type 2 with hypoglycemia. We will discontinue the patient's evening dose of long-acting insulin and monitor the blood sugars closely. 7. Morbid obesity. The patient has been counseled about weight loss and proper diet. 8. Obstructive sleep apnea. Aware. 9. Deep vein thrombosis prophylaxis. The patient is currently on Xarelto. cc: Velma Payne MD MTDD
--- NOTE | 2019-01-22 13:46 | CARDIOLOGY PROGRESS NOTE ---
DATE: 01/22/2019 SUBJECTIVE: Mr. Smith reports a little bit of improvement in his lower extremity edema as well as his breathing. OBJECTIVE: Vital Signs: He is afebrile, heart rate 78, blood pressure 115/89. His I's and O's are incompletely tracked, but seemed to suggest a negative fluid balance based on the number of continent voids not measured. General: No acute distress. Cardiovascular: He sounds to be in a regular rate and rhythm. He does not have any murmurs. He has 1+ bilateral lower extremity edema, and warm and well-perfused extremities. Chest: Clear bilaterally. He has no increased work of breathing. Heart: Very distant heart sounds. Abdomen: Soft, nontender. PERTINENT DATA: Sodium is 140, potassium 4.2, BUN 25, creatinine is 1.3. Magnesium level 2.1. ASSESSMENT: Mr. Smith is a 48-year-old gentleman with systolic heart failure, with an acute on chronic systolic heart failure exacerbation. PLAN: Will continue him on current medications. His home medications were restarted yesterday, and he continues on IV diuretics with good apparent diuresis. I increased Xarelto to 20 yesterday based on his renal function. His GFR today continues to be above 60. I will recheck laboratories in the morning, including a proBNP. cc: James Waters MD
[2019-01-22] MEDS ORDERED: DULCOLAX PR SCH (21:00)
[2019-01-23] MEDS: XOPENEX NEB INH SCH ×3 (03:22→10:31)
[2019-01-23] MEDS: HUMULIN R SUBQ SCH ×2 (06:51→12:19)
[2019-01-23 07:33] LABS: BASO# 0.02 X1000 (0.0-0.2); BASO% 0.3 % (0.0-0.8); EOS# 0.12 X1000 (0.0-0.7); EOS% 2.1 % (0.0-10.0); HEMATOCRIT 43.5 % (42.0-52.0); HEMOGLOBIN 13.3 g/dL (14.0-18.0); LYMPH# 1.42 X1000 (1.2-3.4); LYMPH% 24.4 % (20.5-51.1); MCH 27.5 PG (27-31); MCHC 30.6 g/dL (33-37); MCV 90.1 FL (81-99); MONO# 0.51 X1000 (0.11-0.59); MONO% 8.7 % (1.7-9.3); MPV 10.9 FL (7.4-10.4); NEUT# 3.76 X1000 (1.4-6.5); NEUT% 64.5 % (42.2-75.2); PLT 164 X1000 (130-400); RBC 4.83 XMIL (4.7-6.1); RDW 14.7 % (11.5-14.5); WBC 5.83 X1000 (4.8-10.8)
[2019-01-23 07:52] LABS: AGAP 12; BUN 27 mg/dL (8-22); CALCIUM 8.8 mg/dL (8.8-10.2); CHLORIDE 102 mmol/L (98-107); COSMO 278; CREATININE 1.4 mg/dL (0.7-1.2); ESTIMATED GFR > 60; GLUCOSE 87 mg/dL (70-104); MAGNESIUM 2.1 mg/dL (1.5-2.7); POTASSIUM 4.3 mmol/L (3.5-5.1); SODIUM 137 mmol/L (136-145); TCO2 23 mmol/L (25-35)
[2019-01-23] MEDS: LASIX IV SCH (08:00)
[2019-01-23] MEDS: NORCO-10 PO PRN (08:00)
--- NOTE | 2019-01-23 08:11 | EKG Report ---
Test Performed on : 01/21/2019 07:30:11 AM Test Reason : chest pain Blood Pressure : / mmHG Vent. Rate : 084 BPM Atrial Rate : 084 BPM P-R Int : 158 ms QRS Dur : 112 ms QT Int : 402 ms P-R-T Axes : 051 184 068 degrees QTc Int : 475 ms Normal sinus rhythm. Low voltage QRS Possible Lateral infarct , age undetermined Inferior infarct , age undetermined Abnormal ECG When compared with ECG of 21-JUN-2018 11:06, Questionable change in QRS axis Unconfirmed Result
[2019-01-23] MEDS ORDERED: HUMULIN 70/30 SUBQ SCH (09:00)
[2019-01-23] MEDS: ALDACTONE PO SCH (09:21)
[2019-01-23] MEDS: LACTULOSE PO SCH (09:22)
[2019-01-23] MEDS: XARELTO PO SCH (09:22)
[2019-01-23] MEDS: ENTRESTO 24 MG-26 MG TABLET PO SCH (09:22)
[2019-01-23] MEDS: COREG PO SCH (09:23)
[2019-01-23] MEDS: LANOXIN PO SCH (09:23)
[2019-01-23] MEDS: MIRALAX PO SCH (09:24)
[2019-01-23 11:04] VITALS: BP 113/78
--- NOTE | 2019-01-23 14:36 | CARDIOLOGY PROGRESS NOTE ---
DATE: 01/23/2019 SUBJECTIVE: Mr. Smith reports he is doing well. He is not having any orthopnea. His edema has improved significantly. PHYSICAL: He is afebrile. Heart rate is 77, his blood pressure is 113/78. His I's and O's are somewhat difficult to track secondary to a number of voids not measured. General: No acute distress. Cardiovascular: He is in a regular rate and rhythm. No murmurs. He has no S3. His lower extremity edema has improved markedly to trace at present. He has warm and well perfused extremities. Chest: Clear bilaterally. No increased work of breathing. PERTINENT DATA: Sodium is 137, potassium 4.3, BUN 27, creatinine is 1.4. ProBNP is 2439. ASSESSMENT: Mr. Smith is 48-year-old black male with a nonischemic cardiomyopathy. PLAN: Patient seems to be doing better clinically. His heart failure exacerbation was likely tipped off by cocaine use which is evident by his positive UDS on the . He has been restarted on all of his home medications and could likely be discharged on his oral dose of Lasix at 40 mg p.o. b.i.d. cc: James Waters MD
--- NOTE | 2019-02-02 18:32 | DISCHARGE SUMMARY ---
ADMISSION DATE: 01/21/2019 DISCHARGE DATE: 01/23/2019 FINAL DISCHARGE DIAGNOSES: 1. Acute on chronic systolic congestive heart failure exacerbation. 2. Nonischemic cardiomyopathy, status post AICD. 3. Chronic obstructive pulmonary disease. 4. Constipation. 5. Chronic kidney disease. 6. Diabetes mellitus type 2. 7. Morbid obesity. 8. Obstructive sleep apnea. CONSULTATIONS: Cardiology consultation with Dr. Waters. IMAGING: Portable chest x-ray performed on 01/21/2019 that revealed cardiomegaly, pulmonary edema and trace pleural effusions. HOSPITAL COURSE: Mr. Smith is a 48-year-old male with a history of multiple medical problems including nonischemic cardiomyopathy, status post AICD, chronic systolic CHF, hypertension and morbid obesity, who presented to the ER with a chief complaint of increasing lower extremity edema and shortness of breath. In the ER, chest x-ray was done that revealed cardiomegaly as well as pulmonary edema and trace pleural effusions. The patient was admitted to the hospitalist service. The patient was started on telemetry and supplemental oxygen, and Cardiology was consulted. The patient was started on IV Lasix and his heart failure medications. Over the course of the hospitalization, the patient's volume status improved with diuretic therapy. The patient was again advised to lose weight and to exercise as much as possible. The patient did have an episode of constipation and was given laxative therapy. The patient continued to improve and was cleared for discharge from the automotive warranty administrator on 01/23/2019. DISCHARGE MEDICATIONS: 1. Colace 100 mg p.o. twice a day. 2. Lactulose 10 g p.o. twice a day p.r.n. 3. Lactulose 30 mL twice a day p.r.n. for constipation. 4. MiraLAX 17 g p.o. twice a day. 5. [place] 10/325 one tab oral every 8 hours p.r.n. for pain. 6. Aldactone 25 mg p.o. daily. 7. Entresto one tablet oral twice a day. 8. Digoxin 125 mcg oral daily. 9. Xarelto 20 mg p.o. every morning. 10. Coreg 6.25 mg p.o. twice a day. 11. Lasix 40 mg p.o. twice a day. 12. Humulin 70/30, 30 units twice a day. DISCHARGE DIET: Low-sodium 1800 ADA diet, low-cholesterol. ACTIVITY: As tolerated. FOLLOWUP INSTRUCTIONS: The patient will need to follow up with Dr. Waters as scheduled by his clinic upon discharge. cc: MD Velma Montgomery MD
== END 2019-01-23 14:30 | disposition home or self-care (01) | DRG 291 ==
LOC: SUPCPDRO → ED 07:26 → 4N 12:05
PROVIDERS: ATTEND Internal Medicine
CPT/HCPCS: 71020; 71046; 74019; 74020; 80048; 80053; 80061; 80101; 80301; 80307; 80324; 80345; 80346; 80353; 80358; 80361; 80365; 81001; 82550; 82553; 82805; 82948; 83721; 83735; 83880; 83992; 84443; 84484; 85025; 85610; 85730; 93005; 94640; 94761; 96374; 96376; 99285; A9270; G0431; G0434; G0479; G0480; J1940; XXXXX

== ENCOUNTER 2019-06-01 06:38 | Inpatient (IN) ==
[2019-06-01] MEDS ORDERED: LASIX IV ONE (07:05)
--- NOTE | 2019-06-01 07:06 | PROVIDER DOCUMENTATION ---
HPI-Cardiac General - General Chief Complaint: Return/Recheck Stated Complaint: FLUID/NEEDS STITCHES TAKEN OUT Time Seen by Provider: 06/01/19 06:54 Source: patient Allergies/Adverse Reactions: Patient Allergies Allergy/AdvReac Type Severity Reaction Status Date / Time No Known Allergies Allergy Verified 05/24/19 14:02 Home Medications: Home Medication List Medication Instructions Recorded Confirmed Last Taken Type Carvedilol [Coreg] 6.25 mg PO BID #60 tab 01/18/18 05/24/19 05/24/19 Rx Furosemide [Lasix] 40 mg PO BID #60 tab 01/18/18 05/24/19 05/24/19 Rx Insulin Humulin 70/30 [Humulin 30 unit SUBQ BID #5 insuln.pen 01/18/18 05/24/19 05/24/19 Rx 70/30] Digoxin [Lanoxin] 125 microgm PO DAILY #30 tab 01/23/19 05/24/19 05/24/19 Rx Docusate Sodium [Colace] 100 mg PO BID #60 cap 01/23/19 05/24/19 05/24/19 Rx Hydrocodone/APAP 10 mg/325 mg 1 ea PO Q8H PRN #30 tab 01/23/19 05/24/19 05/24/19 Rx [[place]-10] Lactulose 10 gm PO BID #8 oz 01/23/19 05/24/19 05/24/19 Rx Polyethylene Glycol 3350 [Miralax] 17 gm PO BID #60 powder, packet 01/23/19 05/24/19 05/24/19 Rx Rivaroxaban [Xarelto] 20 mg PO QAM #30 tab 01/23/19 05/24/19 05/24/19 Rx Sacubitril/Valsartan [Entresto 24 1 ea PO BID #60 tab 01/23/19 05/24/19 05/24/19 Rx mg-26 mg Tablet] Spironolactone [Aldactone] 25 mg PO DAILY #30 tab 01/23/19 05/24/19 05/24/19 Rx Mupirocin Ointment [Bactroban 1 applicatn TOP TID #1 tube 05/24/19 Unknown Rx Ointment] - History of Present Illness-Cardiac Nature of Presenting Problem: HERE FOR SUTURE REMOVAL BUT ALSO HX OF CHF WITH INCREASED SOB AND LE SWELLING. NO CHEST PAIN. Quality of Pain: reports: none Severity in ED: mild Onset/Duration: gradual, last week Timing: still present Context/Activities at Onset: reports: none Modifying Factors: improves with: exercise Associated Symptoms: reports: edema, shortness of breath. denies: fever/chills Review of Systems - Adult - REVIEW OF SYSTEMS - ADULT Constitutional: reports: no symptoms reported Cardiovascular: reports: see HPI Respiratory: reports: see HPI Gastrointestinal: reports: no symptoms reported All Other Systems: Reviewed and Negative Past History - Adult - PAST MEDICAL HISTORY-ADULT Review of Records: reports: Nursing Assessment Review, Medications Reviewed, Social history reviewed & non-contributory. Major Childhood Illnesses: reports: denies history Cardiovascular: reports: CHF, HTN, hyperlipidemia Respiratory: reports: asthma, COPD, sleep apnea Gastrointestinal: reports: denies history Obstetrical/Gynecological: reports: denies history Genitourinary: reports: denies history, kidney disease Musculoskeletal: reports: denies history Neurological: reports: denies history Endocrine/Immune: reports: Diabetes Other Conditions: reports: denies history - PRIOR SURGERIES/PROCEDURES Surgical/Procedure History: reports: appendectomy, tonsillectomy, other (defib) - IMMUNIZATION STATUS Childhood Immunizations: See Nurse Assessment Flu Vaccine: See Nurse Assessment - FAMILY HISTORY Family History: reviewed, not pertinent - SOCIAL HISTORY Substance Use: denies Physical Exam-General - PHYSICAL EXAM-ADULT Initial Vital Signs Reviewed: Yes - CONSTITUTIONAL General Appearance: appears well, alert, no apparent distress - EYES Eyes: PERRL/EOMI - HEAD, EARS, NOSE, MOUTH & THROAT HENMT: normocephalic/atraumatic, moist mucous membranes - NECK Neck: non-tender, full range of motion, supple - RESPIRATORY Respiratory: no respiratory distress, decreased breath sounds (BIBASILAR) - CARDIOVASCULAR Cardiovascular: normal peripheral pulses, regular rate, rhythm, no murmur - GASTROINTESTINAL (ABDOMEN) Abdominal Exam: non tender, soft - MUSCULOSKELETAL Extremity: no calf tenderness, pedal edema (2+ BILAT), other (RT LEG - SUTURES INTACT. HEALED WELL. NO S/S INFECTION) - SKIN Integumentary: normal color, normal turgor, warm/dry - NEUROLOGIC Neurologic: no motor/sensory deficits Progress - PLAN OF CARE/RESULTS Progress/Plan/Lab Results: Vital Signs - 8 hr 06/01/19 06:49 06/01/19 07:08 06/01/19 07:10 Temperature 97.5 F L Pulse Rate 115 H 113 H Respiratory Rate 20 21 Blood Pressure 137/88 O2 Sat by Pulse Oximetry 90 L 92 L 89 L 06/01/19 07:20 06/01/19 07:30 06/01/19 07:40 Temperature Pulse Rate 111 H 89 94 H Respiratory Rate 21 13 25 H Blood Pressure O2 Sat by Pulse Oximetry 95 93 L 95 06/01/19 07:50 06/01/19 08:00 Temperature Pulse Rate 115 H 115 H Respiratory Rate 16 33 H Blood Pressure O2 Sat by Pulse Oximetry 94 L 95 Laboratory Results - last 24 hr 06/01/19 06/01/19 06/01/19 07:18 07:18 07:18 WBC 5.80 RBC 4.84 Hgb 13.3 L Hct 41.7 L MCV 86.2 MCH 27.5 MCHC 31.9 L RDW Std Deviation 17.2 H Plt Count 180 MPV 11.7 H Immature Gran % (Auto) 0.0 Neut % (Auto) 73.1 Lymph % (Auto) 16.6 L Todd % (Auto) 9.0 Eos % (Auto) 1.0 Baso % (Auto) 0.3 Immature Gran # (Auto) 0.00 Neut # (Auto) 4.24 Lymph # (Auto) 0.96 L Todd # (Auto) 0.52 Eos # (Auto) 0.06 Baso # (Auto) 0.02 PT INR PTT (Actin FS) Sodium 138 Potassium 5.1 Chloride 103 Carbon Dioxide 22 L Anion Gap 13 BUN 52 H Creatinine 1.8 H Estimated GFR/1.73 m2 49 BUN/Creatinine Ratio 29 Glucose 177 H Calculated Osmolality 294 Calcium 8.7 L Total Bilirubin 1.14 H AST 29 ALT 14 Alkaline Phosphatase 179 H Creatine Kinase 354 H Troponin T [id number] Pept 3811 H Total Protein 8.5 H Albumin 3.5 Globulin 5.0 Albumin/Globulin Ratio 0.7 Urine Source Digoxin 0.3 L 06/01/19 06/01/19 06/01/19 07:18 07:18 08:29 WBC RBC Hgb Hct MCV MCH MCHC RDW Std Deviation Plt Count MPV Immature Gran % (Auto) Neut % (Auto) Lymph % (Auto) Todd % (Auto) Eos % (Auto) Baso % (Auto) Immature Gran # (Auto) Neut # (Auto) Lymph # (Auto) Todd # (Auto) Eos # (Auto) Baso # (Auto) PT 20.0 H INR 1.66 PTT (Actin FS) 33.9 Sodium Potassium Chloride Carbon Dioxide Anion Gap BUN Creatinine Estimated GFR/1.73 m2 BUN/Creatinine Ratio Glucose Calculated Osmolality Calcium Total Bilirubin AST ALT Alkaline Phosphatase Creatine Kinase Troponin T 0.020 [id number] Pept Total Protein Albumin Globulin Albumin/Globulin Ratio Urine Source CLEAN CATCH Digoxin Orders Category Date Time Status Cardiac Monitoring DIRECTED Care 06/01/19 07:04 Active Oxygen Therapy- ED Nursing DIRECTED Care 06/01/19 07:04 Active Saline Loc NOW Care 06/01/19 07:04 Active CHEST-1 VIEW [RAD] Stat Exams 06/01/19 07:05 Completed CBC WITH ELECTRONIC DIFF [HEME] Stat Lab 06/01/19 07:18 Completed CK PROFILE [SP CHEM] Stat Lab 06/01/19 07:18 Results COMPREHENSIVE METABOLIC PANEL [CHEM] Stat Lab 06/01/19 07:18 Results DIGOXIN [TDM] Stat Lab 06/01/19 07:18 Results PRO B-NATRIURETIC PEPTIDE Stat Lab 06/01/19 07:18 Completed PROTIME WITH INR [COAG] Stat Lab 06/01/19 07:18 Completed PTT [COAG] Stat Lab 06/01/19 07:18 Completed TROPONIN T Stat Lab 06/01/19 07:18 Completed UA NIMS W/REFLEX CULT [URINALYSIS] Stat Lab 06/01/19 08:29 Results URINE DRUG SCREEN Stat Lab 06/01/19 08:32 Received Furosemide [Lasix] Med 06/01/19 07:05 Discontinued 60 mg IV NOW ONE CP/SOB/Palp >45 yrs of Age Stat Oth 06/01/19 07:04 Ordered EKG [EKG] Stat Ther 06/01/19 07:04 Ordered Result Diagrams: 06/01/19 07:18 06/01/19 07:18 - REASSESSMENT Reassessment #1 Time Reassessed: 08:51 Status: improving (NO CHEST PAIN IN ER. DISCUSSED WITH HOSPITALIST WILL ADMIT) - EKG 1 Time of EKG reading by physician:: 08:45 EKG Read and Signed by:: Shiv Pandey EKG Interpretation (*Must complete 3 of following elements*): Abnormal Rate: 114 Rhythm: JUNCTIONAL Tucker: normal ID Interval: normal ST Wave: non-specific ST changes Departure - Departure Date of Disposition Decision: 06/01/19 Time of Disposition Decision: 08:35 DIAGNOSIS: Congestive heart failure (CHF) Qualifiers: Heart failure type: unspecified Heart failure chronicity: acute on chronic Qualified Code(s): I50.9 - Heart failure, unspecified Disposition: ADMITTED INPATIENT 09 Certified Medical Emergency: Emergent Condition: Fair Referrals and Follow-Ups: Shola Estrella MD [Primary Care Provider] - - Critical Care Note This patient required my direct & personal management of CC.: No Attestation - Physician/ BAM Attestation Patient care was provided by Advanced Practice Provider:: No The physician spent face to face time with patient:: Yes Advanced Practice Provider documentation review:: Supervising physician onsite and consulted in the evaluation and care of this patient. The physician did have a face to face encounter with the patient.
[2019-06-01 07:46] LABS: BASO# 0.02 X1000 (0.0-0.2); BASO% 0.3 % (0.0-0.8); EOS# 0.06 X1000 (0.0-0.7); HEMATOCRIT 41.7 % (42.0-52.0); HEMOGLOBIN 13.3 g/dL (14.0-18.0); LYMPH# 0.96 X1000 (1.2-3.4); LYMPH% 16.6 % (20.5-51.1); MCH 27.5 PG (27-31); MCHC 31.9 g/dL (33-37); MCV 86.2 FL (81-99); MONO# 0.52 X1000 (0.11-0.59); MPV 11.7 FL (7.4-10.4); NEUT# 4.24 X1000 (1.4-6.5); NEUT% 73.1 % (42.2-75.2); PLT 180 X1000 (130-400); RBC 4.84 XMIL (4.7-6.1); RDW 17.2 % (11.5-14.5)
[2019-06-01 07:51] LABS: INR 1.66
[2019-06-01 07:52] LABS: PTT 33.9 Seconds (22.3-41.8)
--- NOTE | 2019-06-01 07:55 | Diag Imaging Result Doc PS360 ---
EXAM: CHEST-1 VIEW HISTORY: SOB TECHNIQUE: Chest single view COMPARISON: 01/21/2019 FINDINGS: Poor inspiratory effort. The heart remains enlarged. There is a right-sided pleural effusion with fluid in the fissure. Mild pulmonary edema. IMPRESSION: Findings likely due to congestive failure. Electronically signed by Zachery Salas 06/01/2019 7:53 AM
[2019-06-01 08:22] LABS: ALB/GLOB RATIO 0.7; ALBUMIN 3.5 g/dL (3.5-5.0); CALCIUM 8.7 mg/dL (8.8-10.2); CREATININE 1.8 mg/dL (0.7-1.2); DIGOXIN 0.3 ng/mL (0.9-2.0); POTASSIUM 5.1 mmol/L (3.5-5.1); TOTAL BILIRUBIN 1.14 mg/dL (0.20-1.00); TOTAL PROTEIN 8.5 g/dL (6.3-8.3)
[2019-06-01 08:46] LABS: URINE SOURCE CLEAN CATCH
[2019-06-01 09:03] LABS: CK INDEX 1.7 (0.0-2.5); CK-MB 6.07 ng/mL (0.0-5.0)
[2019-06-01 09:11] LABS: UR AMPHETAMINES QUAL NONE DETECTED (NONE DETECT); UR BARBITUATES QUAL NONE DETECTED (NONE DETECT); UR BENZODIAZEPIN QUAL NONE DETECTED (NONE DETECT); UR CANNABINOIDS QUAL PRESUMPTIVE POSITIVE (NONE DETECT); UR COCAINE QUAL PRESUMPTIVE POSITIVE (NONE DETECT); UR METHADONE QUAL NONE DETECTED (NONE DETECT); UR OPIATES QUAL NONE DETECTED (NONE DETECT); UR OXYCODONE QUAL NONE DETECTED (NONE DETECT); UR PCP QUAL NONE DETECTED (NONE DETECT)
[2019-06-01 09:12] LABS: BILIRUBIN URINE NEGATIVE (NEGATIVE); BLOOD URINE TRACE (NEGATIVE); COLOR YELLOW; GLUCOSE URINE NEGATIVE (NEGATIVE); KETONE URINE NEGATIVE (NEGATIVE); LEUKOCYTES URINE SMALL (NEGATIVE); NITRITE URINE NEGATIVE (NEGATIVE); PH URINE 5.5; PROTEIN URINE 30 mg/dL (NEGATIVE); TURBIDITY URINE CLEAR (CLEAR); UR EPITHELIAL CELLS <10 /HPF (<10); URINE BACTERIA NEGATIVE /HPF; URINE RBC <10 /HPF (<10); UROBILINOGEN URINE 3 mg/dL (NORMAL)
--- NOTE | 2019-06-01 09:19 | EKG Report ---
Test Performed on : 06/01/2019 08:37:57 AM Test Reason : sob Blood Pressure : / mmHG Vent. Rate : 114 BPM Atrial Rate : 114 BPM P-R Int : 000 ms QRS Dur : 112 ms QT Int : 390 ms P-R-T Axes : 000 126 072 degrees QTc Int : 537 ms Accelerated Junctional rhythm. with occasional premature ventricular complexes. Possible Lateral infarct (cited on or before 21-JAN-2019) Prolonged QT Abnormal ECG When compared with ECG of 21-JAN-2019 07:30, Junctional rhythm. has replaced Sinus rhythm. Questionable change in QRS axis ST elevation now present in Inferior leads Nonspecific T wave abnormality no longer evident in Lateral leads Unconfirmed Result
[2019-06-01] MEDS ORDERED: ZOFRAN IV PRN (09:57)
[2019-06-01] MEDS ORDERED: TYLENOL PO PRN (09:57)
--- NOTE | 2019-06-01 10:27 | HISTORY AND PHYSICAL ---
PRIMARY CARE PHYSICIAN: Dr. Estrella. CHIEF COMPLAINT: Increased shortness of breath and lower extremity swelling that has worsened over the past 2 to 3 days. HISTORY OF PRESENTING ILLNESS: This is a 48-year-old male who presents to [facility] with complaints of increased shortness of breath and lower extremity swelling for the past 2 to 3 days that has progressively worsened. His workup showed an O2 saturation on room air of 90%. Laboratory data showed a BUN of 52, with a creatinine of 1.8. He does have chronic kidney disease and it appears that his baseline has been around 1.3 to 1.4 so he is a little above his baseline. His proBNP was 3811, which is slightly up from his previous. His last echo was 1 year ago in 04/22/2018. It showed an ejection fraction of 15 to 20 percent with severe left ventricular systolic dysfunction. Chest X-ray showed an impression findings likely due to congestive heart failure, so he will be admitted for further evaluation and treatment. PAST MEDICAL HISTORY: Nonischemic cardiomyopathy, systolic congestive heart failure, diabetes type 2, morbid obesity, hypertension, chronic renal insufficiency, sleep apnea, paroxysmal atrial fibrillation. PAST SURGICAL HISTORY: ICD placement and appendectomy. FAMILY HISTORY: Reviewed and noncontributory. SOCIAL HISTORY: Currently lives alone. Denies any tobacco, alcohol or illicit drug use. ALLERGIES: He has no known drug allergies. HOME MEDICATIONS: A current list needs to be obtained, reconciled, reviewed and restarted as appropriate. We will place an order for nursing to update and confirm home medications. LABORATORY DATA: Showed a white blood cell count of 5.80, hemoglobin 13.3, hematocrit 41.7, platelets 180,000. PT and INR of 20 and 1.66. Sodium 138, potassium 5.1, chloride 103, CO2 22, BUN of 52, creatinine 1.8, glucose 177. Creatine kinase was 354 with a CK-MB of 6.07, troponin normal at 0.020. ProBNP of 3811. Urine drug screen was presumptive positive for cocaine and cannabinoids. Digoxin level was 0.3. Chest x-ray showed findings likely due to congestive heart failure. REVIEW OF SYSTEMS: He denied any fever, chills, blurred vision, dizziness. He denied chest pain, coughing. He has had increased shortness of breath. Denied abdominal pain but states that he has gained weight in his abdomen with fluid retention noted. Denied any constipation, diarrhea, nausea, vomiting, burning or hurting with urination. PHYSICAL EXAMINATION: On arrival he had a temperature of 97.5 degrees, pulse 115, respirations 20, blood pressure 137/88, saturating 90% on room air. Currently, he is on O2 via nasal cannula at 2 L, saturating 95%. GENERAL: This is a 48-year-old male lying in the bed. He has shortness of breath when speaking, but answers questions appropriately. HEENT: Normocephalic, atraumatic. Normal ENT inspection. Oropharynx and nares are clear. EYES: Pupils are equal, round, reactive to light and accommodation. Extraocular movements are intact. NECK: Normal inspection, normal range of motion. LUNGS: With decreased breath sounds bilaterally to his lower bases. Equal lung expansion, chest wall movement are noted. HEART: Regular rate and rhythm. No murmurs, rubs, or gallops. ABDOMEN: Firm distended bowel sounds are present x4 quadrants. MUSCULOSKELETAL: 5/5 strength and is noted to have 2+ pitting edema to his bilateral lower extremities. NEUROLOGICAL: The cranial nerves 2-12 appear grossly intact. ASSESSMENT: 1. An acute on chronic systolic congestive heart failure. 2. An acute on chronic kidney disease. 3. Diabetes type 2. 4. Hypertension. 5. Cocaine abuse. 6. Marijuana abuse. PLAN: He will be admitted to the medical unit, placed on telemetry. O2 per protocol. We will check an echocardiogram. Placed on daily weights. Place on Lasix 60 mg IV q.12, Lovenox 40 mg subcutaneous q.[address] on pattern blood sugars with sliding scale insulin. We need to update and confirm his home medications and place on diabetic diet and recheck CBC, BMP in the a.m. Dictated by MEETA Correa for Julius Mathew MD cc: MEETA Correa MD
[2019-06-01] MEDS: LOVENOX SUBQ SCH (10:45)
[2019-06-01] MEDS: HUMALOG SUBQ SCH ×3 (11:09→22:57)
[2019-06-01] MEDS: LASIX IV SCH (18:00)
[2019-06-01] MEDS ORDERED: LACTULOSE PO PRN (18:06)
[2019-06-01] MEDS ORDERED: NORCO-10 PO PRN (18:06)
--- NOTE | 2019-06-01 18:57 | PROGRESS NOTE ---
DATE: 06/01/2019 ADDENDUM REPORT Briefly, this 48-year-old male presenting with shortness of breath, cough, and he has pulmonary vascular congestion consistent with CHF, ProBNP elevation. Chest x-ray showed heart failure and he was admitted for treatment. He is on Lasix 40 b.i.d. he is status post ICD. His EF is about 15 to 20 percent so we have pursued echo, continue diuretics and check his digoxin level. Reportedly, he is positive for cocaine and cannabinoids, but he adamantly refuses that. He is also very adamant about trying to go home within 24 hours. We will re-evaluate how he is doing tomorrow and go from there. He has got some mild renal insufficiency as well and we will work on trying to get that stabilized. cc: Julius Mathew MD
[2019-06-01] MEDS: COREG PO SCH (22:57)
[2019-06-01] MEDS: COLACE PO SCH (22:57)
[2019-06-01] MEDS: MIRALAX PO SCH (22:57)
[2019-06-01] MEDS: ENTRESTO 24 MG-26 MG TABLET PO SCH (22:57)
[2019-06-02] MEDS: HUMALOG SUBQ SCH (06:08)
[2019-06-02 07:32] LABS: BASO# 0.02 X1000 (0.0-0.2); BASO% 0.4 % (0.0-0.8); EOS# 0.06 X1000 (0.0-0.7); EOS% 1.2 % (0.0-10.0); HEMATOCRIT 41.9 % (42.0-52.0); HEMOGLOBIN 13.3 g/dL (14.0-18.0); LYMPH# 0.96 X1000 (1.2-3.4); MCH 27.7 PG (27-31); MCHC 31.7 g/dL (33-37); MCV 87.1 FL (81-99); MONO# 0.38 X1000 (0.11-0.59); MONO% 7.5 % (1.7-9.3); MPV 10.9 FL (7.4-10.4); NEUT# 3.64 X1000 (1.4-6.5); NEUT% 71.9 % (42.2-75.2); PLT 163 X1000 (130-400); RBC 4.81 XMIL (4.7-6.1); RDW 17.2 % (11.5-14.5); WBC 5.06 X1000 (4.8-10.8)
[2019-06-02] MEDS ORDERED: HUMULIN 70/30 SUBQ SCH (08:00)
[2019-06-02 08:05] LABS: CREATININE 1.7 mg/dL (0.7-1.2); POTASSIUM 4.8 mmol/L (3.5-5.1)
[2019-06-02 08:21] VITALS: BP 127/109
[2019-06-02] MEDS ORDERED: ALDACTONE PO SCH (09:00)
[2019-06-02] MEDS ORDERED: XARELTO PO SCH (09:00)
[2019-06-02] MEDS ORDERED: LANOXIN PO SCH (09:00)
[2019-06-02] MEDS ORDERED: INSULIN PEN NEEDLES ONE (09:30)
[2019-06-02] MEDS: ENTRESTO 24 MG-26 MG TABLET PO SCH (09:34)
[2019-06-02] MEDS: COREG PO SCH (09:34)
[2019-06-02] MEDS: LOVENOX SUBQ SCH (09:34)
[2019-06-02] MEDS: LASIX IV SCH (09:35)
[2019-06-02] MEDS: COLACE PO SCH (09:44)
[2019-06-02] MEDS: MIRALAX PO SCH (09:46)
--- NOTE | 2019-06-02 15:07 | ECHO REPORT ---
ORDER DATE: 06/01/2019 SUMMARY: 1. Technically difficult study due to limited parasternal acoustic window quality. No apical views were obtained. 2. Aortic valve is without gross structural abnormality and appears to open adequately on 2- dimensional images. Mitral valve is without gross structural abnormality. Tricuspid valve is without gross structural abnormality with mild tricuspid regurgitation. Pulmonic valve is not well demonstrated. Aortic root is grossly normal in size. 3. Mild left ventricular enlargement suggested on 2-dimensional images. Left ventricle wall thickness appears to be normal. Estimated left ejection fraction approximately 15 to 20 percent in the setting of severe global hypokinesis. Left atrium is moderately enlarged. Right atrium, right ventricle grossly normal in size. 4. No pericardial effusion. 5. Inferior vena cava not well demonstrated. cc: MD Katalina Blanco CRNP
--- NOTE | 2019-06-02 21:41 | DISCHARGE SUMMARY ---
ADMISSION DATE: 06/01/2019 DISCHARGE DATE: 06/02/2019 HOSPITAL COURSE: Acute congestive heart failure, systolic heart failure exacerbation. He has an ejection fraction of 15 to 20 percent, which is known. He was admitted for treatment. He was placed on IV diuretics and clinically improved. The following day, saturations were 93 on room air. He was very adamant about going home. He has diuresed about, the only thing that has been totaled is 200, which I think is not completely accurate since he has had other. Discharge condition is stable. I think he has been down about 4 pounds and wants to go home. DISCHARGE DIAGNOSES: 1. Acute systolic congestive heart failure exacerbation. 2. Morbid obesity. DISCHARGE MEDICATIONS: Lactulose, Aldactone 25 daily, Colace 100 b.i.d. Coreg 6.25 b.i.d. Entresto 24/26 b.i.d., 70/30 insulin 30 units b.i.d., Lanoxin 125 daily, Lasix 80 b.i.d., MiraLAX 17 g b.i.d., [place], Xarelto 20 daily. DISCHARGE CONDITION: Stable. FOLLOWUP: [facility] and Dr. Estrella. cc: Julius Mathew MD
== END 2019-06-02 12:02 | disposition home or self-care (01) | DRG 291 ==
LOC: ED 06:38 → 3N 09:48
PROVIDERS: ATTEND Internal Medicine

== ENCOUNTER 2019-06-18 07:35 | Inpatient (IN) ==
--- NOTE | 2019-06-18 07:55 | PROVIDER DOCUMENTATION ---
HPI-Cardiac General - General Chief Complaint: Shortness of Breath Stated Complaint: FLUID BUILD UP Time Seen by Provider: 06/18/19 07:52 Source: patient, old records Allergies/Adverse Reactions: Patient Allergies Allergy/AdvReac Type Severity Reaction Status Date / Time No Known Allergies Allergy Verified 05/24/19 14:02 Home Medications: Home Medication List Medication Instructions Recorded Confirmed Last Taken Type Carvedilol [Coreg] 6.25 mg PO BID #60 tab 01/18/18 06/18/19 06/17/19 Rx Insulin Humulin 70/30 [Humulin 30 unit SUBQ BID #5 insuln.pen 01/18/18 06/18/19 06/17/19 Rx 70/30] Digoxin [Lanoxin] 125 microgm PO DAILY #30 tab 01/23/19 06/18/19 06/17/19 Rx Docusate Sodium [Colace] 100 mg PO BID #60 cap 01/23/19 06/18/19 06/17/19 Rx Hydrocodone/APAP 10 mg/325 mg 1 ea PO Q8H PRN #30 tab 01/23/19 06/18/19 06/17/19 Rx [[place]-10] Sacubitril/Valsartan [Entresto 24 1 ea PO BID #60 tab 01/23/19 06/18/19 06/17/19 Rx mg-26 mg Tablet] Spironolactone [Aldactone] 25 mg PO DAILY #30 tab 01/23/19 06/18/19 06/17/19 Rx Lactulose 10 gm PO BID PRN 06/01/19 06/18/19 06/16/19 History Furosemide [Lasix] 80 mg PO BID #60 tab 06/02/19 06/18/19 06/17/19 Rx Rivaroxaban [Xarelto] 15 mg PO QAM 06/18/19 06/18/19 06/17/19 History - History of Present Illness-Cardiac Nature of Presenting Problem: pt returns to ED w/ RA 02 sat recorded @ 87%, improving rapidly to normal w/ 2L 02 cannula. 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 He reports initial episode of CHF was 2010. He states he has a scale at home and attempts to adjust his Lasix (prescribed presently @ 80 bid, he reports taking a tid schedule past few days, but cannot tell me his weight). He was recently d/c'd from [facility] w/ summary as follows: ADMISSION DATE: 06/01/2019 DISCHARGE DATE: 06/02/2019 HOSPITAL COURSE: Acute congestive heart failure, systolic heart failure exacerbation. He has an ejection fraction of 15 to 20 percent, which is known. He was admitted for treatment. He was placed on IV diuretics and clinically improved. The following day, saturations were 93 on room air. He was very adamant about going home. He has diuresed about, the only th ing that has been totaled is 200, which I think is not completely accurate since he has had other. Discharge condition is stable. I think he has been down about 4 pounds and wants to go home. DISCHARGE DIAGNOSES: 1. Acute systolic congestive heart failure exacerbation. 2. Morbid obesity. DISCHARGE MEDICATIONS: Lactulose, Aldactone 25 daily, Colace 100 b.i.d. Coreg 6.25 b.i.d. Entresto / b.i.d., / insulin 30 units b.i.d., Lanoxin 125 daily, Lasix 80 b.i.d., MiraLAX 17 g b.i.d., [place], Xarelto 20 daily. He denies fever or sputum. He reports nocturnal CPAP @ 2L 02, variable use of 02 during day based on his symptoms. he is IDDM on . He denies known hx of DVT/PE. Review of Systems - Adult - REVIEW OF SYSTEMS - ADULT Constitutional: reports: no symptoms reported Eyes: reports: no symptoms reported Ears, Nose, Mouth & Throat: reports: no symptoms reported Cardiovascular: reports: see HPI Respiratory: reports: see HPI Gastrointestinal: reports: no symptoms reported Genitourinary: reports: no symptoms reported Musculoskeletal: reports: no symptoms reported Integumentary: reports: no symptoms reported Neurological: reports: no symptoms reported Psychiatric: reports: no symptoms reported Endocrine: reports: no symptoms reported Hematologic/Lymphatic: reports: no symptoms reported Allergic/Immunologic: reports: no symptoms reported All Other Systems: Reviewed and Negative Past History - Adult - PAST MEDICAL HISTORY-ADULT Review of Records: reports: Old Records Reviewed Major Childhood Illnesses: reports: denies history Cardiovascular: reports: CHF, HTN, hyperlipidemia Respiratory: reports: asthma, COPD, sleep apnea Gastrointestinal: reports: denies history Obstetrical/Gynecological: reports: denies history Genitourinary: reports: denies history, kidney disease Musculoskeletal: reports: denies history Neurological: reports: denies history Endocrine/Immune: reports: Diabetes Other Conditions: reports: denies history - PRIOR SURGERIES/PROCEDURES Surgical/Procedure History: reports: appendectomy, tonsillectomy, other (defib) - IMMUNIZATION STATUS Childhood Immunizations: See Nurse Assessment Flu Vaccine: See Nurse Assessment - FAMILY HISTORY Family History: reviewed, not pertinent Physical Exam-General - PHYSICAL EXAM-ADULT Exam Limited by: body habitus Initial Vital Signs Reviewed: Yes - CONSTITUTIONAL General Appearance: alert, mild distress - EYES Eyes: PERRL/EOMI, pink conjunctivae. negative: scleral icterus - HEAD, EARS, NOSE, MOUTH & THROAT HENMT: normocephalic/atraumatic, moist mucous membranes - NECK Neck: supple - RESPIRATORY Respiratory: no accessory muscle use, decreased breath sounds, dull on percussion, increased rate. negative: accessory muscle use - CARDIOVASCULAR Cardiovascular: normal peripheral pulses - GASTROINTESTINAL (ABDOMEN) Abdominal Exam: normal bowel sounds, other (massive abd wall indurated edema w/ peau de' orange skin quality from above umbilicus to inguinal regions.) - MUSCULOSKELETAL Back Exam: no CVA tenderness Extremity: pedal edema (chronic, indurated 2-3+) Peripheral Pulses: radial (R): 2+, radial (L): 2+ - SKIN Integumentary: normal color, warm/dry - NEUROLOGIC Neurologic: director of medical education II-XII nml as tested, grossly normal - PSYCHIATRIC Psych/Mental Status: normal mood/affect, normal thought content Progress - PLAN OF CARE/RESULTS Progress/Plan/Lab Results: Vital Signs - 8 hr 06/18/19 11:01 06/18/19 11:15 06/18/19 11:30 Pulse Rate 114 H 103 H 96 H Respiratory Rate 18 23 Blood Pressure 119/101 O2 Sat by Pulse Oximetry 96 95 96 06/18/19 11:31 06/18/19 11:45 06/18/19 12:00 Pulse Rate 95 H 96 H 96 H Respiratory Rate 24 23 18 Blood Pressure 105/80 O2 Sat by Pulse Oximetry 95 96 96 06/18/19 12:02 06/18/19 12:15 06/18/19 12:30 Pulse Rate 96 H 94 H 94 H Respiratory Rate 15 19 13 Blood Pressure 116/93 O2 Sat by Pulse Oximetry 96 99 96 06/18/19 12:31 06/18/19 12:50 06/18/19 13:00 Pulse Rate 101 H 92 H 115 H Respiratory Rate 18 23 20 Blood Pressure 128/94 128/94 O2 Sat by Pulse Oximetry 99 99 06/18/19 13:01 06/18/19 13:15 06/18/19 13:30 Pulse Rate 97 H 104 H 100 H Respiratory Rate 22 18 20 Blood Pressure 124/97 O2 Sat by Pulse Oximetry 100 97 96 06/18/19 13:45 06/18/19 14:00 06/18/19 14:02 Pulse Rate 109 H 93 H 99 H Respiratory Rate 21 20 27 H Blood Pressure 127/90 O2 Sat by Pulse Oximetry 96 99 100 06/18/19 14:30 06/18/19 14:31 06/18/19 14:45 Pulse Rate 103 H 97 H 108 H Respiratory Rate 17 24 24 Blood Pressure 133/95 O2 Sat by Pulse Oximetry 99 97 94 L Laboratory Results - last 24 hr 06/18/19 06/18/19 06/18/19 08:13 08:13 08:13 WBC 5.32 RBC 4.80 Hgb 13.3 L Hct 41.8 L MCV 87.1 MCH 27.7 MCHC 31.8 L RDW Std Deviation 16.6 H Plt Count 199 MPV 11.3 H Immature Gran % (Auto) 0.0 Neut % (Auto) 72.5 Lymph % (Auto) 16.0 L [place] % (Auto) 8.8 Eos % (Auto) 2.1 Baso % (Auto) 0.6 Immature Gran # (Auto) 0.00 Neut # (Auto) 3.86 Lymph # (Auto) 0.85 L [place] # (Auto) 0.47 Eos # (Auto) 0.11 Baso # (Auto) 0.03 PT 20.9 H INR 1.75 PTT (Actin FS) 38.8 Sodium Potassium Chloride Carbon Dioxide Anion Gap BUN Creatinine Estimated GFR/1.73 m2 BUN/Creatinine Ratio Glucose Calculated Osmolality Calcium Magnesium Total Bilirubin AST ALT Alkaline Phosphatase Creatine Kinase Creatine Kinase Index CK-MB (CK-2) Troponin T Mnz-H-Tsnkhxubobl Pept Total Protein Albumin Globulin Albumin/Globulin Ratio Digoxin Cancelled 06/18/19 06/18/19 06/18/19 08:13 09:15 09:15 WBC RBC Hgb Hct MCV MCH MCHC RDW Std Deviation Plt Count MPV Immature Gran % (Auto) Neut % (Auto) Lymph % (Auto) [place] % (Auto) Eos % (Auto) Baso % (Auto) Immature Gran # (Auto) Neut # (Auto) Lymph # (Auto) [place] # (Auto) Eos # (Auto) Baso # (Auto) PT INR PTT (Actin FS) Sodium 136 Potassium 4.3 Chloride 97 L Carbon Dioxide 27 Anion Gap 12 BUN 45 H Creatinine 1.7 H Estimated GFR/1.73 m2 53 BUN/Creatinine Ratio 26 Glucose 172 H Calculated Osmolality 288 Calcium 8.1 L Magnesium 2.3 Total Bilirubin 2.32 H AST 33 ALT 16 Alkaline Phosphatase 160 H Creatine Kinase 355 H Creatine Kinase Index 1.5 CK-MB (CK-2) 5.46 H Troponin T 0.031 Mlv-F-Egpljmjnbki Pept Total Protein 9.0 H Albumin 4.1 Globulin 4.9 Albumin/Globulin Ratio 0.8 Digoxin 0.8 L 06/18/19 09:15 WBC RBC Hgb Hct MCV MCH MCHC RDW Std Deviation Plt Count MPV Immature Gran % (Auto) Neut % (Auto) Lymph % (Auto) [place] % (Auto) Eos % (Auto) Baso % (Auto) Immature Gran # (Auto) Neut # (Auto) Lymph # (Auto) [place] # (Auto) Eos # (Auto) Baso # (Auto) PT INR PTT (Actin FS) Sodium Potassium Chloride Carbon Dioxide Anion Gap BUN Creatinine Estimated GFR/1.73 m2 BUN/Creatinine Ratio Glucose Calculated Osmolality Calcium Magnesium Total Bilirubin AST ALT Alkaline Phosphatase Creatine Kinase Creatine Kinase Index CK-MB (CK-2) Troponin T Gnn-A-Qitvaclievo Pept 4598 H Total Protein Albumin Globulin Albumin/Globulin Ratio Digoxin Orders Category Date Time Status Admit - [facility] Routine AdmDCTranf 06/18/19 13:51 Active Activity - Up with Assistance ORDERED Care 06/18/19 13:51 Active Cardiac Monitoring DIRECTED Care 06/18/19 07:56 Active FSBS/Accucheck Result AC + HS Care 06/18/19 13:51 Active I&O [Intake and Output-Strict] ORDERED Care 06/18/19 08:04 Active Nursing- MD Consult Request ROUTINE Care 06/18/19 13:51 Active Oxygen Therapy- ED Nursing DIRECTED Care 06/18/19 07:56 Active Saline Loc NOW Care 06/18/19 07:56 Active Vital Signs Order Q 4-HR ASSESS Care 06/18/19 15:49 Active Z-Document. for Tele Applied ORDERED Care 06/18/19 15:49 Completed Physician/Provider Consults Routine Cons 06/18/19 13:51 Ordered Social Service Consult Routine Cons 06/18/19 15:49 Active Heart Healthy Diet Diet 06/18/19 13:34 Active CHEST-2 VIEWS [RAD] Routine Exams 06/19/19 06:00 Ordered CHEST-2 VIEWS [RAD] Stat Exams 06/18/19 07:[address] THORAX W/O CONTRAST [CT] Routine Exams 06/18/19 14:43 Completed CBC WITH DIFF [HEME] Routine Lab 06/19/19 06:00 Ordered CBC WITH ELECTRONIC DIFF [HEME] Stat Lab 06/18/19 08:13 Completed CK PROFILE [SP CHEM] Stat Lab 06/18/19 09:15 Completed CK TOTAL [CHEM] Routine Lab 06/19/19 06:00 Ordered COMPREHENSIVE METABOLIC PANEL [CHEM] Routine Lab 06/19/19 06:00 Ordered COMPREHENSIVE METABOLIC PANEL [CHEM] Stat Lab 06/18/19 09:15 Completed DIGOXIN [TDM] Stat Lab 06/18/19 08:13 Completed MAGNESIUM [CHEM] Routine Lab 06/19/19 06:00 Ordered MAGNESIUM [CHEM] Stat Lab 06/18/19 09:15 Completed PRO B-NATRIURETIC PEPTIDE Stat Lab 06/18/19 09:15 Completed PROTIME WITH INR [COAG] Routine Lab 06/19/19 06:00 Ordered PROTIME WITH INR [COAG] Stat Lab 06/18/19 08:13 Completed PTT [COAG] Routine Lab 06/19/19 06:00 Ordered PTT [COAG] Stat Lab 06/18/19 08:13 Completed TROPONIN T Routine Lab 06/19/19 06:00 Ordered TROPONIN T Stat Lab 06/18/19 09:15 Completed Acetaminophen [Tylenol] Med 06/18/19 13:51 Active 650 mg PO Q6H PRN PRN Bumetanide [Bumex] Med 06/18/19 08:30 Discontinued 2.5 mg IV NOW ONE Carvedilol [Coreg] Med 06/18/19 21:00 Active 6.25 mg PO BID Digoxin [Lanoxin] Med 06/19/19 09:00 Active 125 microgm PO DAILY Docusate Sodium [Colace] Med 06/18/19 21:00 Active 100 mg PO BID Furosemide [Lasix] Med 06/18/19 21:00 Active 100 mg IV Q12H Furosemide [Lasix] Med 06/18/19 21:00 Discontinued 80 mg IV Q12H Hydrocodone/APAP 10 mg/325 mg [[place]-10] Med 06/18/19 13:51 Active 1 each PO Q8H PRN PRN Insulin Human Regular [Humulin R] Med 06/18/19 16:00 Active See Protocol SUBQ 0700,1100,1600,2100 Insulin Humulin 70/30 [Humulin 70/30] Med 06/18/19 21:00 Active 30 unit SUBQ BID Lactulose Med 06/18/19 13:51 Active 15 ml PO BID PRN PRN Ondansetron [Zofran] Med 06/18/19 13:51 Active 4 mg IV Q4H PRN PRN Rivaroxaban [Xarelto] Med 06/19/19 09:00 Active 15 mg PO QAM Sacubitril/Valsartan [Entresto 24 mg-26 mg Tablet] Med 06/18/19 21:00 Active 1 each PO BID Spironolactone [Aldactone] Med 06/19/19 09:00 Active 25 mg PO DAILY CP/SOB/Palp >45 yrs of Age Stat Oth 06/18/19 07:56 Ordered Oxygen Device Routine Oth 06/18/19 13:51 Completed Pulse Oximetry Routine Oth 06/18/19 15:49 Completed Telemetry [OM.EQ] Routine Oth 06/18/19 15:49 Active EKG [EKG] Routine Ther 06/19/19 08:00 Ordered EKG [EKG] Stat Ther 06/18/19 07:53 Ordered EKG [EKG] Stat Ther 06/18/19 07:56 Ordered Transfer/Admit Order [TRANSFER] Routine Transfer 06/18/19 13:46 Completed Result Diagrams: 06/18/19 08:13 06/18/19 09:15 - REASSESSMENT Reassessment #1 Time Reassessed: 13:05 Status: unchanged (pt states still feels too SOB to go home: will consult for admit) - CONSULTS/PCP/HOSPITALIST Notification #1 *Consult/PCP/Hospitalist*: hospitalist Consult Disposition: Admit Departure - Departure Date of Disposition Decision: 06/18/19 Time of Disposition Decision: 15:10 DIAGNOSIS: Congestive heart failure (CHF) Disposition: ADMITTED INPATIENT 09 Certified Medical Emergency: Emergent Condition: Stable - Critical Care Note This patient required my direct & personal management of CC.: No Attestation - Physician/ BAM Attestation The physician spent face to face time with patient:: Yes Advanced Practice Provider documentation review:: Supervising physician onsite and consulted in the evaluation and care of this patient. The physician did have a face to face encounter with the patient.
[2019-06-18] MEDS ORDERED: BUMEX IV ONE ×2 (08:04→08:30)
[2019-06-18 08:33] LABS: BASO# 0.03 X1000 (0.0-0.2); BASO% 0.6 % (0.0-0.8); EOS# 0.11 X1000 (0.0-0.7); EOS% 2.1 % (0.0-10.0); HEMATOCRIT 41.8 % (42.0-52.0); HEMOGLOBIN 13.3 g/dL (14.0-18.0); LYMPH# 0.85 X1000 (1.2-3.4); MCH 27.7 PG (27-31); MCHC 31.8 g/dL (33-37); MCV 87.1 FL (81-99); MONO# 0.47 X1000 (0.11-0.59); MONO% 8.8 % (1.7-9.3); MPV 11.3 FL (7.4-10.4); NEUT# 3.86 X1000 (1.4-6.5); NEUT% 72.5 % (42.2-75.2); PLT 199 X1000 (130-400); RDW 16.6 % (11.5-14.5); WBC 5.32 X1000 (4.8-10.8)
--- NOTE | 2019-06-18 08:38 | Diag Imaging Result Doc PS360 ---
EXAM: CHEST-2 VIEWS INDICATION: dyspnea TECHNIQUE: 2 views COMPARISON: 06/01/2019 FINDINGS: There is interstitial thickening bilaterally with a basilar predominance indicating edema. There is a right pleural effusion with loculated fissural fluid that is essentially stable. There is also likely a trace left effusion. There is stable cardiomegaly. Central vasculature is prominent indicating pulmonary venous congestion. IMPRESSION: Pulmonary edema and bilateral effusions, larger on the right with loculated fissural fluid on the right that is similar to the previous study. Electronically signed by Ashok Donaldson 06/18/2019 8:36 AM
[2019-06-18 08:49] LABS: INR 1.75; PROTIME 20.9 Seconds (11.0-16.0)
[2019-06-18 08:50] LABS: PTT 38.8 Seconds (22.3-41.8)
[2019-06-18 09:56] LABS: ALB/GLOB RATIO 0.8; ALBUMIN 4.1 g/dL (3.5-5.0); CALCIUM 8.1 mg/dL (8.8-10.2); CREATININE 1.7 mg/dL (0.7-1.2); MAGNESIUM 2.3 mg/dL (1.5-2.7); POTASSIUM 4.3 mmol/L (3.5-5.1); TOTAL BILIRUBIN 2.32 mg/dL (0.20-1.00)
[2019-06-18 10:25] LABS: CK INDEX 1.5 (0.0-2.5); CK-MB 5.46 ng/mL (0.0-5.0)
--- NOTE | 2019-06-18 10:42 | ED EKG INTERP ---
This chart was entered by Yen Garber Scribe, acting as scribe for Jared Ceja MD. EKG Interpretation - EKG Time of EKG reading by physician:: 08:00 EKG Read and Signed by:: Jared Ceja EKG Interpretation (*Must complete 3 of following elements*): Abnormal Rate: 116 Rhythm: Accelerated junctional [place]: right QRS: other (pulmonary disease pattern; nonspecific intraventricular delay) SD Interval: prolonged ST Wave: normal Attestation - Physician/ BAM Attestation Patient care was provided by Advanced Practice Provider:: No The physician spent face to face time with patient:: Yes Advanced Practice Provider documentation review:: Supervising physician onsite and consulted in the evaluation and care of this patient. The physician did have a face to face encounter with the patient. This chart was documented by the indicated scribe, (Yen Garber Scribe) and accurately reflects the services I performed and decisions made by me, Jared Ceja MD, as attested by the provider's signature.
[2019-06-18] MEDS ORDERED: TYLENOL PO PRN (13:51)
[2019-06-18] MEDS ORDERED: ZOFRAN IV PRN (13:51)
--- NOTE | 2019-06-18 15:17 | HISTORY AND PHYSICAL ---
PRIMARY CARE DOCTOR: Dr. Shola Estrella. CHIEF COMPLAINT: Shortness of breath. HISTORY OF PRESENT ILLNESS: This is a 48-year-old male, well known to our service, who was recently admitted to our hospital from 06/01/2019 to 06/02/2019. He reports that after he left the hospital, he was feeling fine, but a few days after, he started noticing some shortness of breath and dyspnea on minimal exertion. Before that admission, he was taking 40 mg of Lasix daily, and he was increased to 80 mg p.o. daily. He reports that sometimes, he was taking 2 or 3 times per day Lasix 80, but apparently it was no working as it was before. He is well know to have a nonischemic severe dilated cardiomyopathy. Upon ER evaluation, he was found out to have O2 saturation of 87 on room air. He is going to be admitted for further evaluation and treatment. PAST MEDICAL HISTORY: 1. Nonischemic cardiomyopathy with ejection fraction documented last admission with EF of 15% to 20%. He had a cardiac catheterization performed in 2012 showing normal coronary arteries. 2. Obesity hypoventilation syndrome. 3. AICD implantation, which is [employer], MRI-compatible device. 4. Paroxysmal atrial fibrillation. Currently on Xarelto. 5. Hypertension. 6. Hyperlipidemia. 7. Diabetes mellitus type 2. 8. Chronic kidney insufficiency. 9. Morbid obesity. 10. Obstructive sleep apnea. PAST SURGICAL HISTORY: 1. AICD placement. 2. Appendectomy. SOCIAL HISTORY: The patient lives with girlfriend. Denies any alcohol, tobacco, or any illicit drugs, although it was documented that he has used cocaine in the past FAMILY HISTORY: Noncontributory. ALLERGIES: The patient has no known drug allergies. REVIEW OF SYSTEMS: Eleven systems were reviewed, and the patient denies any fever or chills, any night sweats, blurred vision. PHYSICAL EXAMINATION: VITAL SIGNS: Temperature 97.2 degrees, heart rate 93, respiratory rate 22, blood pressure 127/90, O2 saturation 97% on room air at admission, but is 94% on 2 L nasal cannula. GENERAL: This is a morbidly obese, 48-year-old, male, lying in bed in no acute distress. HEENT: Head is normocephalic, atraumatic. Mucous membranes dry. Pupils equal, round, reactive to light and accommodation. NECK: No JVD is possible to evaluate because of the neck girth. CARDIOVASCULAR: S1, S2 heard. No murmurs, gallops, or rubs. Regular rate and rhythm. RESPIRATORY: Some distant breath sounds, most likely related to body habitus. Patient not using any accessory muscles or having work of breathing. ABDOMEN: There is abdominal wall edema noted. Bowel sounds are present, but distant. No organomegaly. No signs of peritoneal irritation. EXTREMITIES: There is 3+ pitting edema in both lower extremities. Peripheral pulses are present in both legs. NEUROLOGIC: The patient is alert and oriented x3. Moves all 4 extremities. LABORATORY DATA: Hemoglobin 13.3. Creatinine 1.7, glucose 172. ProBNP 4598. ASSESSMENT: 1. Acute on chronic systolic congestive heart failure. 2. Acute on chronic kidney disease stage 2. 3. Diabetes mellitus type 2. 4. Hypertension. 5. Morbidly obese. PLAN: At this point, the patient is going to be admitted to the hospital for volume overload and acute congestive systolic heart failure. The patient is going to be started on Lasix 100 mg IV every 12 hours. The patient reports also having some whitish-greenish sputum production, so for suspicion for any lower respiratory infection or any kind of bronchitis, will do a CT of the chest without contrast. For diabetes mellitus type 2, will continue with sliding scale insulin and Accu- Chek before meals and also at bedtime. For history of cocaine and marijuana abuse, will check UDS. Will monitor this patient closely, intake and output. We are not going to repeat any ultrasound because he had one recently done, echocardiogram limited views. We are going to consult Cardiology. Will continue to monitor this patient closely. We are going to send this patient to [facility]. cc: Raman Dennis MD
--- NOTE | 2019-06-18 16:05 | Diag Imaging Result Doc PS360 ---
EXAM: CT THORAX W/O CONTRAST INDICATION: cough, chg, pna? TECHNIQUE: This exam was performed using automated exposure control, adjustment of mA or kV according to patient size, and/or use of iterative reconstruction technique. COMPARISON: 01/16/2018 FINDINGS: There is a small to moderate-sized pleural effusion on the right with loculations in the major and minor fissures. This loculated fluid is approximately stable. There is actually less pleural fluid at the right lung base as compared to the previous study. There is chronic subsegmental atelectasis and/or scarring at both lung bases. This is also essentially stable. There are mild groundglass consolidations in the lower lobes and upper lobes bilaterally. These have actually improved slightly during the interval. There is a fine nodular infiltrate seen at the lung apices, more prominent on the right. This is stable. No new consolidation is identified. There is mediastinal and hilar lymphadenopathy that is unchanged and is likely reactive. The cardiac silhouette is somewhat prominent but stable. Limited views of the upper abdomen reveals small volume ascites tracking around the liver and spleen. IMPRESSION: 1.Loculated pleural effusion on the right that is actually slightly smaller than the previous study. 2.Groundglass infiltrates bilaterally that has improved slightly during the interval and biapical fine nodular infiltrates that are approximately stable. 3.Subsegmental atelectasis and/or scarring at the lung bases that is stable. 4.Stable mediastinal and hilar lymphadenopathy that is probably reactive. Electronically signed by Ashok Donaldson 06/18/2019 4:02 PM
[2019-06-18] MEDS ORDERED: INSULIN PEN NEEDLES ONE (16:08)
--- NOTE | 2019-06-18 16:54 | CARDIOLOGY CONSULTATION ---
DATE: 06/18/2019 REASON FOR CONSULT: Congestive heart failure. HISTORY OF PRESENT ILLNESS: This is a 48-year-old Afro-Sy[place] gentleman with nonischemic cardiomyopathy, AICD placement, atrial fibrillation, on anticoagulation therapy, chronic renal insufficiency, comes in with complaints of increasing shortness of breath and orthopnea. He is able to walk across from one room to the other. However, this progressively worsened and he came to the emergency room, was admitted, started on Lasix 100 mg IV twice daily. He says that he has been taking Lasix 80 mg twice daily. In addition, at times he has been taking more than 3 tablets a day. He has been taking other medications regularly. He says he has curtailed his fluid intake to 2 L a day and does not have any significant dietary indiscretion as far as salt intake is concerned. He denies chest pain. There are no palpitations or syncope. REVIEW OF SYSTEM: A 14-point review of systems was done. GI System: There is no history of nausea, vomiting, or diarrhea. There is no history of hematemesis or melena. Central nervous system: No focal weakness to suggest a CVA or TIA. Genitourinary: There is no dysuria or hematuria. PAST MEDICAL HISTORY: 1. Nonischemic cardiomyopathy, ejection fraction 15 to 20% in the past. 2. COPD/asthma. 3. AICD implantation, [employer] device. 4. Atrial fibrillation, on Xarelto. 5. Hypertension. 6. Diabetes. 7. Renal insufficiency. 8. Morbid obesity. 9. Sleep apnea. 10. There is no tobacco or alcohol abuse. PAST SURGICAL HISTORY: Includes appendectomy. HOME MEDICATIONS: Include Coreg 12.5 mg twice daily, insulin 70/30 as directed, docusate, spironolactone 25 mg a day, sacubitril 24/26 one tablet twice daily, digoxin 0.125 mg a day, lactulose as needed 80 mg p.o. b.i.d., Xarelto 15 mg a day. PHYSICAL EXAMINATION: Vital signs: Blood pressure was 127/90, respiratory rate 22. Neck: Difficult to assess jugular venous pressure. Cardiovascular system: First and second heart sounds were heard. There was no S3, gallop. Respiratory System: Bibasilar inspiratory crepitations. Distant breath sounds. Abdomen: Obese, soft, nontender. There was no guarding or rigidity. Bowel sounds were heard. Central nervous system: Alert and oriented x3. Was moving all 4 extremities. Extremities: Examination of extremities reveals pitting pedal edema. LABORATORY: ProBNP 4,598. Creatinine 1.7, glucose 172. Hemoglobin 13.3. ASSESSMENT AND PLAN: 1. Mr. Declan Smith is a 48-year-old Afro-Syrian gentleman with history of atrial fibrillation, chronic renal insufficiency, nonischemic cardiomyopathy, severe LV dysfunction status post AICD placement, comes in with complaints of increasing shortness of breath and orthopnea. Patient is admitted. Has been started on Lasix 100 mg twice daily. 2. Had a CT scan done, noncontrast, to make sure there is no associated pneumonic process given his symptoms of cough as well. 3. As far as diabetes is concerned, continue with insulin. 4. As far as medications for his severe LV dysfunction, he is on Entresto, Coreg, and digoxin. I have not made any changes to his medication at the present time. 5. He states that he has been taking 80 mg of furosemide twice daily and has gone up to 3 times a day which he has been doing for some time recently. He may be not responding to furosemide. Once he is more euvolemic with IV Lasix would recommend changing him to torsemide 40 mg twice daily and see how he does on those medications. 6. Chronic renal insufficiency. It has been stable at the present time. We will follow renal functions as planned. 7. Anticoagulation therapy. He is on Xarelto 15 mg, dose adjusted for his creatinine clearance. I have not made any changes at the present time. Thank you for the consult. cc: Charanjit Saunders MD
[2019-06-18] MEDS: NORCO-10 PO PRN (17:09)
[2019-06-18] MEDS: HUMULIN R SUBQ SCH (17:30)
--- NOTE | 2019-06-18 18:35 | EKG Report ---
Test Performed on : 06/18/2019 08:00:14 AM Test Reason : sob Blood Pressure : / mmHG Vent. Rate : 116 BPM Atrial Rate : 090 BPM P-R Int : 000 ms QRS Dur : 118 ms QT Int : 382 ms P-R-T Axes : 000 105 058 degrees QTc Int : 530 ms Accelerated Junctional rhythm. Rightward axis Pulmonary disease pattern Nonspecific intraventricular conduction delay Prolonged QT Abnormal ECG When compared with ECG of 01-JUN-2019 08:37, (Unconfirmed) premature ventricular complexes. are no longer present Unconfirmed Result
[2019-06-18] MEDS ORDERED: LASIX IV SCH (21:00)
[2019-06-19] MEDS: COLACE PO SCH ×4 (00:24→22:54)
[2019-06-19] MEDS: LASIX IV SCH ×4 (00:24→22:55)
[2019-06-19] MEDS: COREG PO SCH ×4 (00:25→22:55)
[2019-06-19] MEDS: ENTRESTO 24 MG-26 MG TABLET PO SCH ×3 (00:25→22:55)
[2019-06-19] MEDS: HUMULIN R SUBQ SCH ×5 (00:31→22:56)
[2019-06-19] MEDS: HUMULIN 70/30 SUBQ SCH ×3 (00:34→22:56)
[2019-06-19] MEDS: NORCO-10 PO PRN ×2 (01:07→13:44)
--- NOTE | 2019-06-19 07:38 | EKG Report ---
Test Performed on : 06/19/2019 07:23:34 AM Test Reason : chest pain Blood Pressure : / mmHG Vent. Rate : 092 BPM Atrial Rate : 234 BPM P-R Int : 000 ms QRS Dur : 116 ms QT Int : 384 ms P-R-T Axes : 000 187 081 degrees QTc Int : 474 ms Atrial fibrillation. Low voltage QRS Possible Anterolateral infarct , age undetermined Abnormal ECG When compared with ECG of 18-JUN-2019 08:00, (Unconfirmed) Questionable change in QRS axis Borderline criteria for Anterolateral infarct are now present Nonspecific T wave abnormality now evident in Inferior leads Confirmed by Nettie BARRERA, Sam Bell ([id number]) on 06/21/2019 9:41:34 PM
--- NOTE | 2019-06-19 07:45 | Diag Imaging Result Doc PS360 ---
EXAM: CHEST-2 VIEWS HISTORY: sob TECHNIQUE: Chest two views COMPARISON: 06/18/2019 FINDINGS: The heart remains enlarged. No change in the pleural fluid or pulmonary edema. There continues to be a basilar atelectasis. IMPRESSION: Stable chest. Electronically signed by Zachery Salas 06/19/2019 7:43 AM
[2019-06-19] MEDS: LANOXIN PO SCH (09:20)
[2019-06-19] MEDS: XARELTO PO SCH (09:20)
[2019-06-19] MEDS: ALDACTONE PO SCH (09:20)
[2019-06-19 09:35] LABS: BASO# 0.02 X1000 (0.0-0.2); BASO% 0.4 % (0.0-0.8); EOS# 0.14 X1000 (0.0-0.7); HEMATOCRIT 41.7 % (42.0-52.0); HEMOGLOBIN 12.7 g/dL (14.0-18.0); LYMPH# 0.82 X1000 (1.2-3.4); LYMPH% 17.7 % (20.5-51.1); MCH 27.4 PG (27-31); MCHC 30.5 g/dL (33-37); MCV 89.9 FL (81-99); MONO# 0.36 X1000 (0.11-0.59); MONO% 7.8 % (1.7-9.3); MPV 10.5 FL (7.4-10.4); NEUT# 3.29 X1000 (1.4-6.5); NEUT% 71.1 % (42.2-75.2); PLT 150 X1000 (130-400); RBC 4.64 XMIL (4.7-6.1); RDW 16.6 % (11.5-14.5); WBC 4.63 X1000 (4.8-10.8)
[2019-06-19 09:54] LABS: INR 1.55; PROTIME 18.9 Seconds (11.0-16.0)
[2019-06-19 10:13] LABS: ALB/GLOB RATIO 0.7; ALBUMIN 3.6 g/dL (3.5-5.0); CALCIUM 8.1 mg/dL (8.8-10.2); CREATININE 1.9 mg/dL (0.7-1.2); MAGNESIUM 2.3 mg/dL (1.5-2.7); POTASSIUM 4.5 mmol/L (3.5-5.1); TOTAL BILIRUBIN 1.66 mg/dL (0.20-1.00); TOTAL PROTEIN 8.5 g/dL (6.3-8.3)
--- NOTE | 2019-06-19 12:25 | PROGRESS NOTE ---
DATE: 06/19/2019 SUBJECTIVE: Patient reports feeling less short of breath. Denies any fever or chills. Still coughing some whitish sputum sometimes, and sometimes he had a dry cough. OBJECTIVE: Vital Signs: Temperature 98.7 degrees, heart rate 81, respiratory 18, blood pressure 113/72 and O2 saturation 93% on room air. General Examination: This is an extremely morbidly obese, 48-year-old male lying in bed in no acute distress. HEENT: Head is normocephalic, atraumatic. Mucous membranes moist. Neck: Not possible to evaluate JVD because of the neck girth. Cardiovascular: S1, S2 heard. No murmurs, gallops, or rubs. Regular rate and rhythm. Respiratory: There is distant breath sounds mostly related to body habitus. Minimal crackles noted in both pulmonary bases. Patient not using any accessory muscles or having work of breathing. Abdomen: Soft with abdominal wall edema noted. Bowel sounds present but distant. No organomegaly. No signs of peritoneal irritation. Extremities: 3+ pitting edema in both lower extremities unchanged in comparing with yesterday. Neurological: Patient is alert and oriented x3. Moves 4 extremities. LABORATORY DATA: Reviewed. ASSESSMENT AND PLAN: 1. Acute on chronic systolic heart failure. The patient with history of nonischemic cardiomyopathy with severe LV dysfunction with EF of 15%. He has been recently admitted to the hospital 2 weeks ago. At this point, patient has been started on Lasix 100 mg IV q.12 hours. We will continue with the same management. Cardiology has been consulted. We will follow recommendations. 2. Acute on chronic kidney disease stage 2. We will continue to monitor CBC and BMP daily. 3. Diabetes mellitus type 2. We will continue with sliding scale insulin. Accu-Chek before meals and also at bedtime. 4. Hypertension. Blood pressure is under control. We will continue home medications. 5. Morbid obesity. Aware. 6. Right loculated pleural effusion. I do not think the patient got an infection considering his normal white cell count and no fever. At this point, I think we will consult pulmonary, and we will go from there. I am not quite sure if patient needs any antibiotics. cc: Raman Dennis MD MTDD
[2019-06-20 03:50] LABS: ALLEN TEST YES; BE 1.3 mmoll (-3.0-3.0); BLOOD TYPE ARTERIAL; HCO3-(ACT) 25.9 mmoll (20.0-26.0); METHB 1.4 % (0.0-1.5); O2HB 94.2 % (95.0-99.0); PO2(98.6) 91 mmHg (60-100); SAMPLE BLOOD; SAO2 98.1 % (95.0-100.0); THB 12.8 g/dL (11.5-17.4)
[2019-06-20 03:51] LABS: PCO2(98.6) 59 mmHg (35-45)
[2019-06-20 03:52] LABS: MODALITY BI PAP
[2019-06-20] MEDS: HUMULIN R SUBQ SCH ×4 (06:28→20:27)
--- NOTE | 2019-06-20 06:59 | PULMONOLOGY CONSULTATION ---
DATE: 06/19/2019 REQUESTING PHYSICIAN: Dr. Tafoya. REASON FOR CONSULTATION: Respiratory failure. HISTORY OF PRESENT ILLNESS: Mr. Smith is a 48-year-old, black male with morbid obesity, nonischemic cardiomyopathy, with chronic renal insufficiency, who was admitted to the hospital from 06/01/2019 until 06/02/2019 with acute on chronic systolic heart failure. This is his third admission to the hospital with heart failure this year. The patient's chest x-ray revealed bilateral pleural effusions and pulmonary edema with some loculated fluid in the right fissure. This has not changed from prior studies. He underwent a CT scan of the thorax which also revealed the loculated pleural effusions which were slightly smaller than on prior study. He has got some mild ground-glass infiltrates which have also improved. The patient reports he was diagnosed with sleep apnea by Dr. Harding. He does not like wearing his CPAP device and has not been compliant with this device. PAST MEDICAL HISTORY/PROBLEM LIST: 1. Nonischemic cardiomyopathy with an ejection fraction of 15% and normal coronary arteries in 2012. 2. Morbid obesity with a BMI greater than 55. 3. Obstructive sleep apnea with noncompliance as per above. 4. Paroxysmal atrial fibrillation. 5. Hypertension. 6. Type 2 diabetes mellitus. 7. Dyslipidemia. 8. Status post appendectomy. 9. History of AICD placement. SOCIAL HISTORY: No alcohol or tobacco use listed. FAMILY HISTORY: Noncontributory to current presentation. REVIEW OF SYSTEMS: Positive for shortness of breath with minimal exertion. Increased weight gain by his report due to fluid retention. He denies cough, fevers, or sputum production. PHYSICAL EXAMINATION: General: Reveals a morbidly obese, black male in no distress. Vital Signs: Blood pressure 113/72, heart rate 91, respiratory rate 16, oxygen saturation 93% on 4 L per nasal cannula. HEENT: Pupils are equal and reactive. Oropharynx appears clear. Neck: Supple. Chest: Reveals crackles in both lung bases. Cardiac Examination: Distant heart sounds. Normal S1, normal S2. Abdomen: Obese and soft. Extremities: Reveal 1+ peripheral edema. LABORATORIES: CT scan as per HPI. White blood count 4.63, hemoglobin 12.7, platelet count 150,000. Sodium 140, potassium 4.5, chloride 102, bicarbonate 28, BUN 49, creatinine 1.9. ProBNP is elevated at 4598. This has shown some steady increase since February of last year. IMPRESSION: A 48-year-old with: 1. Systolic heart failure. 2. Chronic pleural effusions. 3. Acute hypoxemic respiratory failure. 4. Obstructive sleep apnea with noncompliance to CPAP regimen. 5. Chronic renal insufficiency. DISCUSSION: This is a 48-year-old with problems outlined above. The patient is morbidly obese and has severe reduction in his ejection fraction. The patient is in acute systolic failure which may be, in part, due to his severe morbid obesity along with noncompliance with his CPAP device. The importance of oxygenation and wearing his CPAP device were discussed at length. He did appear to be slightly agitated about the importance of wearing his CPAP device because he does not like wearing this apparatus. He is willing to initiate CPAP/BiPAP while he is in the hospital. RECOMMENDATIONS: 1. Initiate BiPAP this evening. 2. Check an overnight oximetry to ensure he is being oxygenated through the night. 3. Diuretics as tolerated. 4. Recommend re-evaluation of his sleep apnea device. He might tolerate a nasal pillow approach. He was not happy with his evaluation by Dr. Harding and would like another evaluation from another sleep physician if possible after discharge. cc: Gen Arce MD
[2019-06-20 07:50] LABS: BASO# 0.02 X1000 (0.0-0.2); BASO% 0.5 % (0.0-0.8); EOS# 0.09 X1000 (0.0-0.7); EOS% 2.1 % (0.0-10.0); HEMATOCRIT 40.6 % (42.0-52.0); HEMOGLOBIN 12.3 g/dL (14.0-18.0); LYMPH# 0.64 X1000 (1.2-3.4); LYMPH% 14.7 % (20.5-51.1); MCH 27.1 PG (27-31); MCHC 30.3 g/dL (33-37); MCV 89.4 FL (81-99); MONO# 0.44 X1000 (0.11-0.59); MONO% 10.1 % (1.7-9.3); NEUT# 3.15 X1000 (1.4-6.5); NEUT% 72.6 % (42.2-75.2); PLT 139 X1000 (130-400); RBC 4.54 XMIL (4.7-6.1); RDW 16.3 % (11.5-14.5); WBC 4.34 X1000 (4.8-10.8)
[2019-06-20] MEDS: NORCO-10 PO PRN ×2 (07:50→20:20)
[2019-06-20] MEDS: LACTULOSE PO PRN (07:53)
[2019-06-20 08:00] LABS: HEMOGLOBIN A1C 6.9 % (4.8-6.0)
[2019-06-20 08:05] LABS: ALBUMIN 3.4 g/dL (3.5-5.0); CALCIUM 8.1 mg/dL (8.8-10.2); CREATININE 1.8 mg/dL (0.7-1.2); PHOSPHORUS 4.3 mg/dL (2.7-4.5); POTASSIUM 5.1 mmol/L (3.5-5.1)
[2019-06-20] MEDS: LASIX IV SCH ×2 (09:50→20:10)
[2019-06-20] MEDS: ALDACTONE PO SCH (09:51)
[2019-06-20] MEDS: ENTRESTO 24 MG-26 MG TABLET PO SCH ×2 (09:51→20:10)
[2019-06-20] MEDS: LANOXIN PO SCH (09:51)
[2019-06-20] MEDS: COLACE PO SCH ×2 (09:51→20:10)
[2019-06-20] MEDS: XARELTO PO SCH (09:51)
[2019-06-20] MEDS: COREG PO SCH ×2 (09:51→20:10)
[2019-06-20] MEDS ORDERED: LASIX IV ONE (10:15)
[2019-06-20] MEDS ORDERED: ZAROXOLYN PO ONE (10:19)
[2019-06-20] MEDS: HUMULIN 70/30 SUBQ SCH ×2 (10:43→20:10)
[2019-06-20] MEDS ORDERED: DOBUTAMINE 500/D5W 500 MG/250 ML IV.SOLN IV SCH (12:28)
[2019-06-20] MEDS: DOBUTAMINE 500/D5W 500 MG/250 ML IV.SOLN IV SCH ×2 (13:10→23:30)
--- NOTE | 2019-06-20 14:55 | PROGRESS NOTE ---
DATE: 06/20/2019 SUBJECTIVE: The patient has no major complaints. OBJECTIVE: Vital Signs: Blood pressure is 101/71, heart rate of 87, respiratory rate 24, temperature 97.5 degrees, and 97% on 2 L. Cardiovascular: Regular rate and rhythm. Pulmonary: Bilateral breath sounds. Clear to auscultation. GI: Soft, nontender, and nondistended. Bowel sounds are positive. LABORATORY DATA: White count 4, hemoglobin and hematocrit 12 and 40, platelets 139,000. A pH 7.30, pCO2 59, PaO2 91, and creatinine 1.8. PROBLEM LIST: 1. Acute on chronic systolic heart failure. EF is 10 to 15 percent. Patient was extremely upset earlier today because his weight had increased despite high-dose diuretics. There may have been discrepancy in the weight because it was not the same scale that was used, but we explained that he is on high-dose diuretics, and we were maximizing therapy. We will add metolazone today. Cardiology has been consulted. I discussed with Dr. Saunders about addition of dobutamine just to see if we can increase perfusion, and maybe help with removing some of the fluid. 2. Chronic renal failure stage 2. We will continue to monitor. 3. Type 2 diabetes. Continue sliding scale and follow closely. 4. Loculated pleural effusion. Pulmonary has been consulted. Dr. Arce feels like to just maintain BiPAP and diuretics, but no thoracentesis at this point or further issues there. We will continue to monitor. cc: Julius Mathew MD
--- NOTE | 2019-06-20 21:23 | PULMONOLOGY PROGRESS NOTE ---
DATE: 06/20/2019 SUBJECTIVE: The patient is awake, alert, and conversant. He reports he did wear the BiPAP for a few hours last evening. He reports there was some difficulty with the mask leaking. He reports his shortness of breath has diminished. OBJECTIVE: Vital Signs: The patient has been afebrile for the last 24 hours. Blood pressure 101/71, heart rate 87, respiratory rate 24, oxygen saturation 97% on 2 L per nasal cannula. HEENT: Pupils are equal and reactive. Oropharynx appears clear. Neck: Is supple. Chest: Reveals crackles in both lung bases. Cardiac exam: S1-S2. Abdomen: Is obese and soft with some superficial venous distention. Extremities: Reveal trace to 1+ peripheral edema. IMPRESSION: A 48-year-old with 1. Systolic heart failure. 2. Chronic pleural effusions. 3. Acute hypoxemic failure. 4. Obstructive sleep apnea with noncompliance. 5. Chronic renal insufficiency. DISCUSSION: A 48-year-old with problems outlined above. He will need to be oxygen needed for 2 to 3 days before he will be able to mobilize his extra body water. PLAN: 1. Continue oxygen to maintain saturation greater than 90%. 2. Encourage BiPAP at bedtime as tolerated. 3. Recommend re-evaluation of sleep apnea device as an outpatient. He might benefit from nasal pillows. He has not been happy with prior management by Dr. Harding and another evaluation should be planned at discharge. cc: Gen Arce MD
--- NOTE | 2019-06-21 02:46 | EKG Report ---
Test Performed on : 06/21/2019 02:29:07 AM Test Reason : chest pain Blood Pressure : / mmHG Vent. Rate : 089 BPM Atrial Rate : 227 BPM P-R Int : 000 ms QRS Dur : 104 ms QT Int : 370 ms P-R-T Axes : 000 150 034 degrees QTc Int : 450 ms Atrial flutter. with variable AV block. Low voltage QRS Possible Anterolateral infarct (cited on or before 19-JUN-2019) Abnormal ECG When compared with ECG of 19-JUN-2019 07:23, (Unconfirmed) Atrial flutter. has replaced Atrial fibrillation. Confirmed by Nettie BARRERA, Sam Bell ([id number]) on 06/21/2019 10:21:18 PM
[2019-06-21 06:01] LABS: BASO# 0.01 X1000 (0.0-0.2); BASO% 0.2 % (0.0-0.8); EOS# 0.09 X1000 (0.0-0.7); HEMATOCRIT 38.7 % (42.0-52.0); HEMOGLOBIN 11.9 g/dL (14.0-18.0); LYMPH# 0.84 X1000 (1.2-3.4); LYMPH% 18.5 % (20.5-51.1); MCH 27.3 PG (27-31); MCHC 30.7 g/dL (33-37); MCV 88.8 FL (81-99); MPV 10.8 FL (7.4-10.4); NEUT# 3.11 X1000 (1.4-6.5); NEUT% 68.3 % (42.2-75.2); PLT 143 X1000 (130-400); RBC 4.36 XMIL (4.7-6.1); RDW 16.3 % (11.5-14.5); WBC 4.55 X1000 (4.8-10.8)
[2019-06-21] MEDS: HUMULIN R SUBQ SCH ×4 (06:17→20:08)
[2019-06-21 06:58] LABS: ALBUMIN 3.2 g/dL (3.5-5.0); CALCIUM 8.2 mg/dL (8.8-10.2); CREATININE 1.7 mg/dL (0.7-1.2); PHOSPHORUS 3.9 mg/dL (2.7-4.5); POTASSIUM 4.5 mmol/L (3.5-5.1)
[2019-06-21] MEDS: LANOXIN PO SCH (08:35)
[2019-06-21] MEDS: COLACE PO SCH ×2 (08:35→20:06)
[2019-06-21] MEDS: ENTRESTO 24 MG-26 MG TABLET PO SCH ×2 (08:36→20:06)
[2019-06-21] MEDS: XARELTO PO SCH (08:36)
[2019-06-21] MEDS: COREG PO SCH (08:36)
[2019-06-21] MEDS: ALDACTONE PO SCH (08:36)
[2019-06-21] MEDS: LASIX IV SCH ×2 (08:38→20:06)
[2019-06-21] MEDS: HUMULIN 70/30 SUBQ SCH ×2 (08:46→20:06)
[2019-06-21] MEDS: DOBUTAMINE 500/D5W 500 MG/250 ML IV.SOLN IV SCH ×2 (10:05→21:49)
[2019-06-21] MEDS: NORCO-10 PO PRN ×2 (14:30→21:44)
[2019-06-21] MEDS ORDERED: ZAROXOLYN PO SCH (15:45)
--- NOTE | 2019-06-21 16:19 | PROGRESS NOTE ---
DATE: 06/21/2019 SUBJECTIVE: Patient has no major complaints. He is actually more cheerful today; was very upset yesterday, but he feels better, feels like the fluid is coming off. OBJECTIVE: Vital Signs: Blood pressure 99/67. He did have one earlier of 80/51, heart rate 97, respiratory rate of 21, temperature is 98.6 degrees. Cardiovascular: Regular rate and rhythm. Pulmonary: Bilateral breath sounds. Clear to auscultation. GI: Soft, nontender, nondistended. Bowel sounds are positive. LABORATORY DATA: His urine output is actually pretty good despite his weight being worse. He went up a pound or maybe even 2 pounds. His weight was 390, was 388 yesterday and was 381 on arrival, but his urine output was 4800 in the last 24 hours, so he put out 5 L, 1700 the day before, and he has put out 6160 now, so he I do think he is diuresing, granted some of that is the nursing staff is being very careful in keeping up with his ins and outs. PROBLEM LIST: 1. Acute on chronic congestive heart failure. He is on high-dose diuretics. I have put him on metolazone, and we have added dobutamine, and we will continue to follow. I do think he is diuresing. 2. Hypercapnic respiratory failure related to morbid obesity, Pickwickian syndrome. We will continue treatment which includes positive-pressure ventilation. Encourage compliance and encourage weight loss. Appreciate Pulmonary assistance. 3. Morbid obesity. I would say he would qualify; clearly he is morbidly obese, but with his heart history he may not be able to tolerate bariatric surgery. 4. Loculated pleural effusion. We will continue to monitor. Repeat chest x-ray tomorrow and follow. DISPOSITION: Pending clinical status, but he may need another day or two of treatment. cc: Julius Mathew MD
[2019-06-21] MEDS: ZAROXOLYN PO SCH (17:22)
[2019-06-21] MEDS ORDERED: INSULIN PEN NEEDLES ONE (20:07)
[2019-06-21] MEDS: ATIVAN IV PRN (22:20)
--- NOTE | 2019-06-22 01:48 | PULMONOLOGY PROGRESS NOTE ---
DATE: 06/21/2019 SUBJECTIVE: The patient reports his shortness of breath has diminished. His urine output appears to be increasing. He did not wear his BiPAP last night because he reports that they did not come to place it on him. OBJECTIVE: Vital Signs: Blood pressure is 99/67, heart rate 97, respiratory rate 21, oxygen saturation 93% on 3 L per nasal cannula. HEENT: Pupils are equal and reactive. Oropharynx appears clear. Neck: Supple. Chest: Reveals decreased breath sounds in both lung bases. Cardiac: S1, S2. Abdomen: Obese with some superficial venous distention. Extremities: Reveal decreasing peripheral edema. LABORATORY DATA: Sodium 138, potassium 4.5, chloride 100, bicarbonate 28, BUN 55, creatinine 1.7. IMPRESSION: The patient is a 48-year-old with: 1. Systolic heart failure. 2. Chronic pleural effusions. 3. Acute hypoxemic respiratory failure. 4. Chronic renal insufficiency. 5. Obstructive sleep apnea. PLAN: 1. Continue to encourage the patient to wear BiPAP at bedtime. 2. Continue oxygen to maintain saturation greater than 90%. 3. Recommend re-evaluation for CPAP after discharge as outlined in prior notes. cc: Gen Arce MD
[2019-06-22 06:10] LABS: BASO# 0.02 X1000 (0.0-0.2); BASO% 0.5 % (0.0-0.8); EOS# 0.09 X1000 (0.0-0.7); EOS% 2.2 % (0.0-10.0); HEMATOCRIT 39.7 % (42.0-52.0); HEMOGLOBIN 12.2 g/dL (14.0-18.0); LYMPH% 19.3 % (20.5-51.1); MCH 27.5 PG (27-31); MCHC 30.7 g/dL (33-37); MCV 89.4 FL (81-99); MONO# 0.38 X1000 (0.11-0.59); MONO% 9.2 % (1.7-9.3); NEUT# 2.86 X1000 (1.4-6.5); NEUT% 68.8 % (42.2-75.2); PLT 140 X1000 (130-400); RBC 4.44 XMIL (4.7-6.1); RDW 16.4 % (11.5-14.5); WBC 4.15 X1000 (4.8-10.8)
[2019-06-22] MEDS: HUMULIN R SUBQ SCH ×4 (06:34→20:13)
[2019-06-22 06:36] LABS: ALBUMIN 3.6 g/dL (3.5-5.0); CALCIUM 8.3 mg/dL (8.8-10.2); CREATININE 1.8 mg/dL (0.7-1.2); PHOSPHORUS 4.4 mg/dL (2.7-4.5); POTASSIUM 4.6 mmol/L (3.5-5.1)
--- NOTE | 2019-06-22 07:12 | Diag Imaging Result Doc PS360 ---
EXAM: CHEST-PORTABLE 06/22/2019 HISTORY: dyspnea, chf TECHNIQUE: AP portable at 0532 COMMENT: There is a loculated fluid collection minor fissure. There are atelectatic changes present particularly in the lower and/or middle lobe. The inspiration is less optimal than on 06/19/2019. There is increased opacity in the right upper lobe which may be a result of poor inspiration. The heart size remains enlarged. IMPRESSION: Pleural effusion on the right. Atelectasis versus pneumonia. The possibility of pulmonary edema cannot be excluded. Cardiomegaly. Electronically signed by Rashad Horta 06/22/2019 7:09 AM
[2019-06-22] MEDS: DOBUTAMINE 500/D5W 500 MG/250 ML IV.SOLN IV SCH ×2 (09:10→10:59)
[2019-06-22] MEDS: ZAROXOLYN PO SCH (09:17)
[2019-06-22] MEDS: ENTRESTO 24 MG-26 MG TABLET PO SCH ×2 (09:17→20:13)
[2019-06-22] MEDS: LANOXIN PO SCH (09:17)
[2019-06-22] MEDS: COREG PO SCH ×2 (09:17→20:13)
[2019-06-22] MEDS: LASIX IV SCH ×2 (09:18→20:13)
[2019-06-22] MEDS: XARELTO PO SCH (09:18)
[2019-06-22] MEDS: ALDACTONE PO SCH (09:18)
[2019-06-22] MEDS: COLACE PO SCH ×2 (09:33→20:13)
[2019-06-22] MEDS: HUMULIN 70/30 SUBQ SCH ×2 (09:51→20:13)
[2019-06-22] MEDS: LACTULOSE PO PRN (09:55)
--- NOTE | 2019-06-22 09:56 | PROGRESS NOTE ---
DATE: 06/22/2019 SUBJECTIVE: The patient reports breathing better, but he says also that edema in the abdominal wall and the legs is not improving as he was suspecting. OBJECTIVE: Vital Signs: Temperature 97.9 degrees, heart rate 115, respiratory rate 23, blood pressure 107/88, O2 saturation 95% on 4 L nasal cannula. General: This is an extremity morbidly obese and chronically ill-looking, 48-year-old, male, lying in bed in no acute distress. Cardiovascular: S1, S2 heard. No murmurs, gallops, or rubs. Regular rate and rhythm. Respiratory: Decreased breath sounds globally, most likely related to body habitus, but clear to auscultation. The patient is not using any accessory muscles or having work of breathing. Abdomen: Soft, nontender to palpation, nondistended. Bowel sounds present. No organomegaly. Extremities: No clubbing or cyanosis, but 2+ pitting edema, basically unchanged in the last 2 days. Peripheral pulses present in both legs. Neurological: The patient is alert and oriented x3. Moves all 4 extremities. LABORATORY DATA: White cell count 4.15, hemoglobin 12.2, hematocrit 39.7, platelets 140,000. Sodium 134, potassium 4.6, creatinine 1.8. ASSESSMENT AND PLAN: 1. Acute on chronic congestive heart failure. The patient continues to be on Lasix 100 mg intravenously every 12 hours, plus metolazone 2.5 mg by mouth daily, and he has been started on dobutamine. At this point, the patient looks to be still overloaded, so will continue with the same management. The patient has been explained that he may need to stay in the hospital a few more days, and he has agreed with the plan. 2. Acute on chronic hypercapnic respiratory failure secondary to morbid obesity, Pickwickian syndrome. At this point, will continue current encouraging this patient to use bilevel positive airway pressure. Pulmonary is also following this patient. Will follow their recommendations. 3. Morbidly obese. Aware. 4. Loculated pleural effusion. Will continue to monitor. The patient is not requiring any antibiotics at this time. Pulmonary is following this patient. Will follow their recommendations. 5. Disposition. I think at this point, we will keep this patient in the [facility]. Will continue with dobutamine and the rest of his medications for congestive heart failure, and will go from there. cc: Raman Dennis MD
--- NOTE | 2019-06-22 12:00 | PROGRESS NOTE ---
DATE: 06/22/2019 SUBJECTIVE: The patient denies chest discomfort or shortness of breath on supplemental oxygen per nasal cannula. OBJECTIVE: Vital Signs: Blood pressure 107/88, heart rate 115, oxygen saturation 95%. Neck: Jugular distention is present consistent with elevated central venous pressure. Chest: Auscultation of the chest reveals somewhat diminished breath sounds at the bases bilaterally. Cardiac: Exam reveals a regular rate and rhythm without appreciable murmur or gallop. Extremities: Demonstrate mild to moderate edema. LABORATORY DATA: Includes a white blood cell count of 4.15, hematocrit 39.7, hemoglobin 12.2, platelet count 140. Sodium 134, potassium 4.6, chloride 96, carbon dioxide 28. BUN 54, creatinine 1.8, glucose 68. IMPRESSION: 1. Acute on chronic systolic heart failure, right greater than left. 2. Severe nonischemic cardiomyopathy. 3. Morbid obesity. 4. Obstructive sleep apnea. 5. Chronic kidney disease. Suspect possible component of cardiorenal syndrome. 6. Hypertension. 7. Atrial fibrillation. 8. Type 2 diabetes mellitus. RECOMMENDATIONS: 1. Discontinue dobutamine at this point. 2. Continue to diurese with IV Lasix. 3. Continue low-dose metolazone for now. 4. Continue Xarelto at current dose. 5. If diuresis stalls, may consider use of Primacor. cc: Hao May MD
[2019-06-22] MEDS ORDERED: AYR NASAL SPRAY NAS PRN (18:55)
[2019-06-22] MEDS: NORCO-10 PO PRN (20:41)
--- NOTE | 2019-06-23 01:07 | PULMONOLOGY PROGRESS NOTE ---
DATE: 06/22/2019 SUBJECTIVE: The patient is awake and alert. He is unhappy with the blood pressure cuff on his arm which cycles periodically. He has had a good urine output over the last 24 hours. He reports shortness of breath has markedly diminished. OBJECTIVE: Blood pressure 114/81, heart rate 106, respiratory rate 26, oxygen saturation 97% on supplemental oxygen. HEENT: Pupils are equal and reactive. Oropharynx appears clear. Neck is supple. Chest reveals distant breath sounds bilaterally with crackles in the lung bases. Cardiac exam: Distant heart sounds. Normal S1, normal S2. Abdomen is morbidly obese, with superficial vascular distention. Extremities reveal trace to 1+ peripheral edema. DIAGNOSTIC DATA: Chest x-ray reveals pleural effusion/pseudotumor in the minor fissure; shallow inspiration; cardiomegaly with small pleural effusion on the right. LABORATORY DATA: Sodium 134, potassium 4.6, chloride 96, bicarbonate 54, creatinine 1.8, glucose 68. IMPRESSION: A 48-year-old with: 1. Morbid obesity and a body mass index greater than 50. 2. Systolic heart failure. 3. Pleural effusions which appear chronic. 4. Acute hypoxemic respiratory failure. 5. Obstructive sleep apnea. 6. Chronic renal insufficiency. PLAN: 1. Continue diuresis as tolerated. 2. Encourage the patient to wear his oxygen and his BiPAP. cc: Gen Arce MD
[2019-06-23] MEDS: HUMULIN R SUBQ SCH ×4 (06:20→20:36)
[2019-06-23 06:48] LABS: ALBUMIN 3.5 g/dL (3.5-5.0); CALCIUM 8.6 mg/dL (8.8-10.2); CREATININE 1.7 mg/dL (0.7-1.2); PHOSPHORUS 4.1 mg/dL (2.7-4.5); POTASSIUM 4.8 mmol/L (3.5-5.1)
[2019-06-23] MEDS: COLACE PO SCH ×2 (09:00→20:36)
[2019-06-23] MEDS: LANOXIN PO SCH (09:01)
[2019-06-23] MEDS: COREG PO SCH ×2 (09:01→20:36)
[2019-06-23] MEDS: XARELTO PO SCH (09:01)
[2019-06-23] MEDS: ENTRESTO 24 MG-26 MG TABLET PO SCH ×2 (09:01→20:36)
[2019-06-23] MEDS: ALDACTONE PO SCH (09:01)
[2019-06-23] MEDS: ZAROXOLYN PO SCH (09:01)
[2019-06-23] MEDS: HUMULIN 70/30 SUBQ SCH ×2 (09:04→20:36)
[2019-06-23] MEDS: LASIX IV SCH ×2 (09:04→20:36)
--- NOTE | 2019-06-23 10:48 | PROGRESS NOTE ---
DATE: 06/23/2019 SUBJECTIVE: The patient reports breathing better. Although abdominal wall edema and lower extremity edema, according to him is basically unchanged. OBJECTIVE: Vital Signs: Temperature 98 degrees, heart rate 92, respiratory rate 19, blood pressure 93/40, and O2 saturation 93% on Venturi mask. General: This is an extremely morbidly obese and chronically ill-looking, 48-year-old male lying in bed in no acute distress. Cardiovascular: S1, S2 heard. No murmurs, gallops, or rubs. Regular rate and rhythm. Respiratory: Decreased breath sounds globally, but most likely related to body habitus, but clear to auscultation. Patient is not using any accessory muscles or having work of breathing. Abdomen: Soft. Obese. Nontender to palpation. No signs of abdominal wall edema. No organomegaly noted. Extremities: No clubbing, cyanosis, but 2+ pitting edema. Basically unchanged since admission. Peripheral pulses present in both legs. Neurological: Patient is alert and oriented x3. Moves all 4 extremities. LABORATORY DATA: BMP from today reveals creatinine 1.7. ASSESSMENT AND PLAN: 1. Acute on chronic congestive heart failure. The patient currently on Lasix 100 mg IV q.12 hours plus metolazone 2.5 mg p.o. b.i.d. The BMP has been stopped by Cardiology. I think he is having a good urine output but considering his body habitus and weight, I think it is not enough for him. Blood pressure last reading of 93/40 so I think at this point, he may need to have INR drop medication like Primacor. We will leave the decision to start this medication to Cardiology. 2. Acute on chronic hypercapnic respiratory failure secondary to Pickwickian syndrome. Patient requiring oxygen by Venturi mask right now. He definitely will need CPAP at home. We will continue to monitor. 3. Morbid obesity. Aware. 4. Loculated pleural effusion. We will continue to monitor. I have seen the x-ray from yesterday personally, and is still right pleural effusion with significant cardiomegaly. I think at this point we will continue to monitor. Pulmonary is following this patient. We will follow recommendations. 5. Disposition. At this point, the patient will continue to be in the PVC currently on Lasix and metolazone. I think at this point for inotrope support, he may need to be on Primacor, but we will see what Cardiology has to say. cc: Raman Dennis MD
[2019-06-23 10:59] LABS: IRON SATURATION 14 %; TIBC 359 ug/dL; TOTAL IRON 49 ug/dL (53-167); UNBOUND IRON 310 ug/dL (112-346)
[2019-06-23 11:12] LABS: PREALBUMIN 5.5 mg/dL (20-40)
--- NOTE | 2019-06-23 11:30 | CARDIOLOGY PROGRESS NOTE ---
DATE: 06/23/2019 CHIEF COMPLAINT: Swelling, shortness of breath. SUBJECTIVE: Mr. Smith is still feeling like he is pretty swollen. He is not in any pain. Last chest x-ray from 06/22 shows pleural effusions on the right, pulmonary edema certainly cannot be excluded. His EKG from the showed low voltage with atrial flutter and variable block. OBJECTIVE: His vital signs today, the patient sitting upright. His blood pressure is 93/40, pulse 88, temperature 98 degrees, respirations 18. He is obese in no distress. HEENT: Unremarkable. Chest: Diminished breath sounds. Heart: Sounds distant. Slightly irregular. Abdomen: Very distended. He has a "caput medusae" in the abdomen suggesting portal hypertension. Extremities: Showed 1+ edema bilaterally. Neurological exam: Follows commands, moves all 4 extremities. BLOOD WORK: From today, sodium 137, potassium 4.8, BUN 58, creatinine 1.7. IMPRESSION: 1. Patient who has severe advanced congestive heart failure systolic suspected to be nonischemic cardiomyopathy. 2. Chronic kidney insufficiency. 3. Obesity, morbid. 4. Atrial fibrillation. 5. Diabetes mellitus type 2. 6. Sleep apnea syndrome. 7. Suspected portal hypertension, significant based on his features noted in the abdomen with cutaneous collateral circulation typical of portal hypertension. RECOMMENDATIONS: At this time, I agree with the spironolactone, digoxin, Lasix, Zaroxolyn. He has been on dobutamine for a few days with a little bit of improvement. Prognosis is really very guarded. We will discuss with Dr. Tafoya and perhaps with the other members of the Cardiology team to see if there is any suggestion. cc: Panda Shelton MD [facility]
[2019-06-23 11:36] LABS: C REACTIVE PROT QUANT 18.7 mg/L (0.00-5.00)
[2019-06-23] MEDS: NORCO-10 PO PRN ×2 (14:36→23:10)
--- NOTE | 2019-06-23 23:20 | PULMONOLOGY PROGRESS NOTE ---
DATE: 06/23/2019 SUBJECTIVE: The patient is short of breath but feels that he is getting better. His weight appears decreased from admission and he does appear to be negative for the last 24 hours. EXAM: Morbid obese male resting comfortably in no distress.HEENT: Pupils are equal and reactive. Oropharynx is clear. Neck: Supple. Chest: Reveals distant breath sounds bilaterally. Cardiac: S1-S2. Abdomen: Obese. Extremities: Reveal peripheral edema with some evidence of diuresis. LABORATORIES: Sodium 137, potassium 4.8, chloride 96, bicarbonate 28, BUN 58, creatinine 1.7. IMPRESSION: 48-year-old with 1. Systolic heart failure. 2. Chronic effusions. 3. Acute hypoxemic respiratory failure. 4. Chronic renal insufficiency. 5. Sleep apnea. PLAN: 1. Continue to encourage BiPAP each evening. 2. Continue oxygen during the daytime maintain saturation greater than 90%. 3. Ongoing diuresis as tolerated. cc: Gen Arce MD
[2019-06-24] MEDS: ATIVAN IV PRN (02:41)
[2019-06-24] MEDS: HUMULIN R SUBQ SCH (06:04)
[2019-06-24 07:38] VITALS: BP 125/78
[2019-06-24] MEDS: LANOXIN PO SCH (09:08)
[2019-06-24] MEDS: ALDACTONE PO SCH (09:08)
[2019-06-24] MEDS: XARELTO PO SCH (09:08)
[2019-06-24] MEDS: COLACE PO SCH (09:08)
[2019-06-24] MEDS: COREG PO SCH (09:10)
[2019-06-24] MEDS: LASIX IV SCH (09:10)
[2019-06-24] MEDS: ZAROXOLYN PO SCH (09:10)
[2019-06-24] MEDS: ENTRESTO 24 MG-26 MG TABLET PO SCH (09:10)
[2019-06-24 09:43] LABS: BASO# 0.04 X1000 (0.0-0.2); BASO% 0.9 % (0.0-0.8); EOS# 0.09 X1000 (0.0-0.7); EOS% 1.9 % (0.0-10.0); HEMATOCRIT 39.6 % (42.0-52.0); HEMOGLOBIN 12.2 g/dL (14.0-18.0); LYMPH# 0.81 X1000 (1.2-3.4); LYMPH% 17.4 % (20.5-51.1); MCH 27.5 PG (27-31); MCHC 30.8 g/dL (33-37); MCV 89.2 FL (81-99); MONO# 0.43 X1000 (0.11-0.59); MONO% 9.2 % (1.7-9.3); MPV 9.8 FL (7.4-10.4); NEUT# 3.28 X1000 (1.4-6.5); NEUT% 70.6 % (42.2-75.2); PLT 159 X1000 (130-400); RBC 4.44 XMIL (4.7-6.1); RDW 16.1 % (11.5-14.5); WBC 4.65 X1000 (4.8-10.8)
[2019-06-24 10:00] LABS: CALCIUM 8.6 mg/dL (8.8-10.2); CREATININE 1.9 mg/dL (0.7-1.2); POTASSIUM 4.6 mmol/L (3.5-5.1)
[2019-06-24] MEDS: HUMULIN 70/30 SUBQ SCH (10:00)
--- NOTE | 2019-06-24 13:48 | DISCHARGE SUMMARY ---
ADMISSION DATE: 06/18/2019 DISCHARGE DATE: 06/24/2019 CONSULTATIONS: 1. Dr. Gen Arce with Pulmonology. 2. Dr. Hao May with Cardiology. PERTINENT PROCEDURES: 1. Chest CT: Loculated pleural effusion on the right that is actually slightly smaller than the previous study. Ground-glass infiltrates bilaterally that has improved slightly during the interval and biapical fine nodular infiltrates that are approximately stable. Subsegmental atelectasis and/or scarring at the lung bases that are stable. Stable mediastinal and hilar lymphadenopathy that is probably reactive. 2. Final chest: X-ray pleural effusion on the right, atelectasis versus pneumonia. The possibility of pulmonary edema could not be excluded. Cardiomegaly. DISCHARGE DIAGNOSES: 1. Acute on chronic congestive heart failure, followed by Cardiology. The patient will continue with spironolactone, digoxin, Lasix, and Zaroxolyn. He had previously been on dobutamine with improvement. 2. Acute on chronic hypercapnic respiratory failure secondary to Pickwickian syndrome. He will be discharged home with home health and home O2. 3. Morbid obesity aware. 4. Loculated pleural effusion followed by Cardiology as well as Pulmonology. 5. Paroxysmal atrial fibrillation, continue Xarelto. 6. Hypertension, continue home medications. 7. Diabetes mellitus type 2. Continue home regimen. 8. Chronic renal insufficiency. Stable. 9. Automatic implantable cardioverter defibrillator implantation aware. HOSPITAL COURSE: Briefly, Mr. Smith Is a 48-year-old male with morbid obesity, nonischemic cardiomyopathy, chronic renal insufficiency, suspected Pickwickian syndrome. He was admitted to the hospital back in late May with acute on chronic systolic heart failure and this is his 3rd admission for heart failure this year. Chest x-ray revealed bilateral pleural effusions, pulmonary edema and some loculated fluid in the right fissure not changed from prior studies. He underwent a CT scan of the thorax that revealed loculated pleural effusions, was slightly smaller than the prior study and some ground-glass infiltrates which had also improved. He was diagnosed with sleep apnea by Dr. Harding. He does not like wearing his CPAP device nor is he compliant with it and he was readmitted to the hospital for acute on chronic systolic heart failure as well as acute hypoxemic respiratory failure, was placed on BiPAP. He was receiving high dose of IV Lasix along with metolazone followed by Cardiology as well as dobutamine. Pulmonology was brought on board for his respiratory failure. Mr. Smith throughout his hospital course has been diuresed appropriately. He has been weaned down to a nasal cannula and he got continued education throughout his hospital course to wear his oxygen as well as his CPAP at home. He is being discharged with home health and to continue his home O2. VITAL SIGNS: At time of discharge, temperature is 97.9 degrees, heart rate 91, respirations 20, blood pressure 125/78, O2 is 95% on nasal cannula. DISCHARGE DIET: Healthy Heart Diet. DISCHARGE MEDICATIONS: 1. Lactulose 10 g p.o. b.i.d. p.r.n. constipation. 2. Xarelto 15 mg p.o. q.a.m. 3. Aldactone 25 mg p.o. daily. 4. Colace 100 mg p.o. b.i.d. 5. Coreg 3.125 mg p.o. b.i.d. 6. Torsemide 40 mg p.o. b.i.d. 7. Entresto 24 mg/26 mg tablet 1 each p.o. b.i.d. 8. Humulin 70/30 30 units subcutaneously b.i.d. 9. Digoxin 125 mcg p.o. daily. 10. Fitzpatrick 10 one each p.o. q.8 hours p.r.n. 11. Xanax 0.25 mg p.o. q.8 hours p.r.n. 12. Zaroxolyn 2.5 mg p.o. daily. FOLLOWUP: Mr. Smith is being discharged back home with his home O2. He has been encouraged to wear his oxygen as well as his home CPAP. Continue to take all medications as prescribed and continue to follow up with Pulmonary and Cardiology. He can return to the ED or call 911 for any worsening of symptoms. Dictated by MEETA Solorzano for Raman Dennis MD Addendum: Patient seen and examined by myself. Agree with MEETA note. It reflects my assessment and plan. Patient is being discharged in stable condition. Will be seen by Cardiology in two to three weeks. cc: Raman Dennis MD [facility]
== END 2019-06-24 10:13 | disposition home health service (06) | DRG 291 ==
LOC: ED 07:35 → 3N 15:10 → SUATTDRO 15:10 → 3N 15:34 → 2N 06-20 12:25
PROVIDERS: ATTEND Internal Medicine

== ENCOUNTER 2019-07-19 09:32 | Inpatient (IN) ==
[2019-07-19] MEDS ORDERED: SALINE LOCK IV FLUID XX ONE (10:19)
[2019-07-19] MEDS ORDERED: CORDARONE 360 MG/D5W 360 MG/200 ML IV.SOLN IV ONE (10:25)
[2019-07-19] MEDS ORDERED: CORDARONE 150 MG/D5W 150 MG/100 ML IV.SOLN IV ONE (10:25)
[2019-07-19] MEDS ORDERED: LASIX 100 MG in NS 90 ML IV SCH ×3 (10:30→17:54)
[2019-07-19] MEDS ORDERED: ALDACTONE PO SCH (10:45)
[2019-07-19] MEDS: COREG PO SCH ×2 (11:07→20:24)
[2019-07-19] MEDS: LANOXIN PO SCH (11:07)
[2019-07-19 11:10] LABS: BASO# 0.05 X1000 (0.0-0.2); BASO% 0.8 % (0.0-0.8); EOS# 0.11 X1000 (0.0-0.7); EOS% 1.8 % (0.0-10.0); HEMATOCRIT 43.8 % (42.0-52.0); HEMOGLOBIN 14.6 g/dL (14.0-18.0); LYMPH# 1.43 X1000 (1.2-3.4); MCH 28.1 PG (27-31); MCHC 33.3 g/dL (33-37); MCV 84.4 FL (81-99); MONO# 0.59 X1000 (0.11-0.59); MONO% 9.9 % (1.7-9.3); MPV 10.6 FL (7.4-10.4); NEUT# 3.78 X1000 (1.4-6.5); NEUT% 63.5 % (42.2-75.2); PLT 220 X1000 (130-400); RBC 5.19 XMIL (4.7-6.1); RDW 20.3 % (11.5-14.5); WBC 5.96 X1000 (4.8-10.8)
--- NOTE | 2019-07-19 11:10 | Diag Imaging Result Doc PS360 ---
EXAM: CHEST-PORTABLE 07/19/2019 HISTORY: chf TECHNIQUE: AP portable at 1045 COMMENT: There is fluid in the minor fissure which was also the case on 06/22/2019. The heart size is enlarged. There may be mild pulmonary edema. There is apparent atelectasis or fibrosis in the right base which was also present previously. IMPRESSION: Pulmonary edema and loculated pleural fluid on the right. Electronically signed by Rashad Horta 07/19/2019 11:08 AM
[2019-07-19] MEDS ORDERED: XANAX PO PRN (11:12)
[2019-07-19] MEDS: HUMALOG SUBQ SCH ×3 (11:55→21:38)
--- NOTE | 2019-07-19 11:58 | HISTORY AND PHYSICAL ---
PRIMARY CARE PROVIDER: Dr. Shola Estrella. IT ARCHITECT: Dr. James Waters. CHIEF COMPLAINT: She was admitted from Dr. James Waters's office for congestive heart failure and atrial flutter. HISTORY OF PRESENT ILLNESS: Mr. Smith is an 48-year-old -[place] male who carries a past medical history of nonischemic cardiomyopathy with an ejection fraction of 15 to 20 percent, obesity hypoventilation syndrome, AICD implantation, paroxysmal atrial fibrillation on Xarelto, hypertension, hyperlipidemia, diabetes mellitus type 2, chronic kidney insufficiency, morbid obesity, obstructive sleep apnea, who is a direct admit from Dr. James Waters's office when he was found to be in atrial flutter as well as continued heart failure. He was admitted to [facility] and initiated on amiodarone and IV Lasix and will be prepped for DCC cardioversion in the a.m. Per patient report, he had been feeling better. His only complaint was easy satiety with meals as well as some increased anxiety. He denies any shortness of breath, chest pain, headache, fever, chills, nausea, vomiting, diarrhea, or constipation. PAST MEDICAL HISTORY: 1. Nonischemic cardiomyopathy with ejection fraction of 15 to 20 percent. 2. Obesity hypoventilation syndrome. 3. Automatic implantable cardioverter-defibrillator (AICD) implantation, Micropelt MRI compatible. 4. Paroxysmal atrial fibrillation on Xarelto. 5. Hypertension. 6. Hyperlipidemia. 7. Diabetes mellitus type 2. 8. Chronic kidney insufficiency. 9. Morbid obesity. 10. Obstructive sleep apnea. PAST SURGICAL HISTORY: 1. Automatic implantable cardioverter-defibrillator (AICD) placement. 2. Appendectomy. SOCIAL HISTORY: He lives with girlfriend. No alcohol, tobacco, or illicit drug use. Alcohol and cocaine were abused in the past. FAMILY HISTORY: Noncontributory. ALLERGIES: No known drug allergies. REVIEW OF SYSTEMS: Twelve-point review of systems completely negative except for those mentioned in HPI. PHYSICAL EXAMINATION: VITAL SIGNS: Heart rate 115, respirations 18, blood pressure 109/77, O2 is 96% on room air. GENERAL: Mr. Smith is a pleasant 48-year-old male who is sitting up on the bed in no acute distress. HEENT: Atraumatic, normocephalic. PERRL. NECK: Supple. Trachea midline. There is JVD noted. CARDIOVASCULAR: S1, S2 appreciated. No murmurs, gallops, or rubs noted. RESPIRATORY: Could not appreciate any rales, rhonchi, or wheezes. However, secondary to patient's body habitus, breath sounds were hard to hear but he does not appear to be using any accessory muscles to breathe. ABDOMEN: Obese, soft, nontender. Does not appear overtly distended. Quiet bowel sounds. EXTREMITIES: There is some lower extremity edema. NEUROLOGIC: No focal deficits noted. LABORATORY/DIAGNOSTIC DATA: Currently pending. ASSESSMENT AND PLAN: 1. Atrial fibrillation/atrial flutter. Patient will be placed on amiodarone drip and prepared for DCC cardioversion in the a.m. with Dr. Waters. 2. Acute on chronic systolic congestive heart failure. Continue with IV Lasix and p.o. medications per Dr. Waters. 3. Diabetes mellitus type 2. We will continue with sliding scale and pattern blood sugars and home medications. 4. Hypertension. 5. Morbid obesity. 6. Renal insufficiency. 7. Further recommendation to follow physician evaluation, laboratory and diagnostic data. Dictated by MEETA Solorzano for Velma Payne MD cc: MD James Park MD
[2019-07-19 12:25] LABS: ESTIMATED GFR 28
[2019-07-19 12:30] LABS: AGAP 12; ALB/GLOB RATIO 0.6; ALBUMIN 3.7 g/dL (3.5-5.0); ALKALINE PHOSPHATASE 165 U/L (32-122); BUN 63 mg/dL (8-22); CALCIUM 9.3 mg/dL (8.8-10.2); CHLORIDE 98 mmol/L (98-107); COSMO 291; CREATININE 2.9 mg/dL (0.7-1.2); DIGOXIN < 0.3 ng/mL (0.9-2.0); GLUCOSE 81 mg/dL (70-104); GOT 28 U/L (10-34); GPT 18 U/L (10-44); POTASSIUM 4.4 mmol/L (3.5-5.1); SODIUM 137 mmol/L (136-145); TCO2 27 mmol/L (25-35); TOTAL PROTEIN 9.4 g/dL (6.3-8.3)
[2019-07-19] MEDS ORDERED: CORDARONE 540 MG in D5W 289.2 ML IV ONE (16:25)
[2019-07-19] MEDS: XARELTO PO SCH (16:26)
[2019-07-19] MEDS: NORCO-10 PO PRN (16:26)
[2019-07-19] MEDS: HUMULIN 70/30 SUBQ SCH (17:20)
[2019-07-19] MEDS: ZOFRAN IV PRN (18:04)
[2019-07-20 03:26] LABS: URINE SOURCE CLEAN CATCH
[2019-07-20 03:43] LABS: UR CREAT RANDOM 133.6 mg/dL (14-26); UR PROT RANDOM 60.1 mg/dL
[2019-07-20 03:44] LABS: BILIRUBIN URINE SMALL (NEGATIVE); BLOOD URINE TRACE (NEGATIVE); COLOR YELLOW; GLUCOSE URINE NEGATIVE (NEGATIVE); KETONE URINE NEGATIVE (NEGATIVE); LEUKOCYTES URINE NEGATIVE (NEGATIVE); NITRITE URINE NEGATIVE (NEGATIVE); PH URINE 5.5; PROTEIN URINE 30 mg/dL (NEGATIVE); TURBIDITY URINE HAZY (CLEAR); UROBILINOGEN URINE 4 mg/dL (NORMAL)
[2019-07-20 03:45] LABS: UR EPITHELIAL CELLS >10 /HPF (<10); URINE BACTERIA NEGATIVE /HPF; URINE RBC <10 /HPF (<10); URINE WBC <10 /HPF (<10)
[2019-07-20 06:11] LABS: BASO# 0.02 X1000 (0.0-0.2); BASO% 0.4 % (0.0-0.8); EOS# 0.07 X1000 (0.0-0.7); EOS% 1.4 % (0.0-10.0); HEMATOCRIT 44.1 % (42.0-52.0); HEMOGLOBIN 13.5 g/dL (14.0-18.0); LYMPH# 1.66 X1000 (1.2-3.4); LYMPH% 33.4 % (20.5-51.1); MCH 27.4 PG (27-31); MCHC 30.6 g/dL (33-37); MCV 89.5 FL (81-99); MONO# 0.38 X1000 (0.11-0.59); MONO% 7.6 % (1.7-9.3); MPV 10.6 FL (7.4-10.4); NEUT# 2.84 X1000 (1.4-6.5); NEUT% 57.2 % (42.2-75.2); PLT 159 X1000 (130-400); RBC 4.93 XMIL (4.7-6.1); WBC 4.97 X1000 (4.8-10.8)
[2019-07-20] MEDS: HUMALOG SUBQ SCH ×4 (06:21→20:26)
[2019-07-20] MEDS: HUMULIN 70/30 SUBQ SCH ×2 (06:22→16:47)
[2019-07-20 06:34] LABS: CALCIUM 8.4 mg/dL (8.8-10.2); CREATININE 4.3 mg/dL (0.7-1.2); MAGNESIUM 2.2 mg/dL (1.5-2.7); POTASSIUM 4.7 mmol/L (3.5-5.1)
--- NOTE | 2019-07-20 06:44 | Diag Imaging Result Doc PS360 ---
CHEST-PORTABLE - 07/20/2019 INDICATION: chf COMPARISON: 07/19/2019 FINDINGS: Stable pacemaker. Stable severe cardiomegaly and pulmonary vascular congestion. Stable fluid in the right minor fissure. Stable hazy background interstitial pulmonary edema. IMPRESSION: No change from prior. Electronically signed by Gutierrez Palm 07/20/2019 6:42 AM
--- NOTE | 2019-07-20 07:45 | EKG Report ---
Test Performed on : 07/20/2019 06:57:02 AM Test Reason : pre-cardioversion Blood Pressure : / mmHG Vent. Rate : 080 BPM Atrial Rate : 080 BPM P-R Int : 188 ms QRS Dur : 130 ms QT Int : 424 ms P-R-T Axes : 078 198 031 degrees QTc Int : 489 ms Atrial flutter. Nonspecific intraventricular block Possible Lateral infarct (cited on or before 19-JUN-2019) Abnormal ECG When compared with ECG of 21-JUN-2019 02:29, QRS duration has increased Confirmed by Leighann BARRERA, Yoseph Bell ([id number]) on 07/20/2019 3:42:13 PM
--- NOTE | 2019-07-20 08:00 | Diag Imaging Result Doc PS360 ---
US RENAL 2 (RETROPER) COMPLETE - 07/20/2019 INDICATION: josé antonio/arf TECHNIQUE: COMPARISON: Renal stone search 10/28/2018 FINDINGS: The kidneys and urinary bladder are normal. There is no hydronephrosis. No mass or cyst. Urinary bladder is filled with clear urine. The right kidney measures 10.5 x 5.7 x 5.5 cm. The left kidney measures 11.8 x 5.9 x 6.4 cm. IMPRESSION: Negative exam. Electronically signed by Gutierrez Palm 07/20/2019 7:58 AM
[2019-07-20] MEDS ORDERED: NS 500 ML IV SCH (09:00)
[2019-07-20] MEDS: COREG PO SCH ×2 (09:07→20:25)
[2019-07-20] MEDS: CORDARONE PO SCH ×2 (09:07→20:25)
[2019-07-20] MEDS: LANOXIN PO SCH (09:07)
[2019-07-20] MEDS ORDERED: NEO-SYNEPHRINE ONE (10:35)
[2019-07-20] MEDS ORDERED: SODIUM CHLORIDE 0.9% 20 ML ONE (10:35)
[2019-07-20] MEDS ORDERED: AMIDATE ONE (10:35)
[2019-07-20] MEDS ORDERED: NS 1,000 ML ONE (12:39)
[2019-07-20] MEDS ORDERED: CLAVE TWINSITE 32 IN 11959 ONE (12:40)
--- NOTE | 2019-07-20 12:43 | CARDIOLOGY PROGRESS NOTE ---
DATE: 07/20/2019 SUBJECTIVE: Mr. Smith feels better today. He had some hypotension and nausea last night. We discontinued the amiodarone infusion. PHYSICAL EXAMINATION: Physically, he is afebrile, heart rate is 79, blood pressure 91/64. His I's and O's are -204 mL with the 1 void not measured. Generally, he is in no acute distress. Cardiovascular: Irregular rhythm. His telemetry currently shows variable conduction atrial flutter. He has warm and well perfused extremities with no edema. His chest exam sounds relatively clear to auscultation bilaterally. He has no increased work of breathing. Abdomen is soft, nontender. PERTINENT DATA: His renal ultrasound today shows essentially unremarkable findings. His electrocardiogram demonstrates, again, a variable conduction atrial flutter. Rate of 80 beats per minute. His chest x-ray continues to show severe cardiomegaly, pulmonary vascular congestion, interstitial pulmonary edema with some evidence for pleural effusions. His lab data shows a white count of 4.9, hematocrit 44, his platelet count is 159,000. His sodium is 136, potassium is 4.7, his BUN is 70, with a creatinine of 4.3. His proBNP is 4227. ASSESSMENT: Mr. Smith is a 48-year-old male who presented with heart failure and atrial flutter. PLAN: Last night, I believe he likely had a combination of a reaction from the amiodarone infusion as well as likely a drop in his preload. He may be somewhat preload dependent given his severe heart failure. In addition, his loss of atrial kick with his rhythm is likely contributing as well. I have given him a slight fluid bolus, held his diuretics at this point. We will try to cardiovert him this morning. He should not need a transesophageal echocardiogram given that he has been continuously on Xarelto. We will try to re-initiate medications in the next 24 to 48 hours. cc: James Waters MD
--- NOTE | 2019-07-20 13:01 | NEPHROLOGY CONSULTATION ---
DATE: 07/20/2019 REASON FOR ADMISSION: Congestive heart failure with atrial flutter. REASON FOR CONSULTATION: Acute kidney injury on CKD. CONSULTING PHYSICIAN: Dr. Velma Payne per Bianca Russo NP. HISTORY OF PRESENT ILLNESS: Mr. Smith is a 48-year-old male, who has a medical history of nonischemic cardiomyopathy. Noted ejection fraction on the chart of 15 to 20 percent. He has been followed by Dr. Waters; he was seen in his office yesterday and was found to be in congestive heart failure with an irregular heart pattern. He was found to be in atrial flutter. Admitted to outpatient PVC, initiated on amiodarone and was given IV Lasix at 3 mg an hour. The patient was prepped for cardioversion this a.m., continued on his Lasix during the night. Amiodarone was taken off secondary to patient's chronic nausea and headache last night. He was started on p.o. amiodarone. He currently has an irregular heart pattern on telemetry. He denies any chest pains. No increased work of breathing. No nausea, vomiting or diarrhea. Denies any headache, fever or chills, no chest pain, positive palpitations and increased work of breathing, positive lower extremity swelling, denies nausea vomiting or diarrhea. No hematochezia, hemoptysis or hematuria. PAST MEDICAL HISTORY: The patient's past medical history of chronic kidney disease stage III. It appears previous baseline creatinine of 1.4 to 1.7. Nonischemic cardiomyopathy with an ejection fraction of 15 to 20 percent, obesity with hypoventilation syndrome. He has an automatic implantable cardioverter defibrillator. History of paroxysmal atrial fibrillation. He is on Xarelto in the past. Hypertension, hyperlipidemia, diabetes mellitus type 2, morbid obesity, obstructive sleep apnea. PAST SURGICAL HISTORY: Appendectomy, automatic implantable cardioverter defibrillator placement. SOCIAL HISTORY: He lives with his girlfriend. He currently denies tobacco, alcohol or illicit drug use. Indicated that he had used cocaine and alcohol in the past. FAMILY HISTORY: Noncontributory to acute kidney injury or end-stage renal disease. ALLERGIES: Listed as no known drug allergies. HOME MEDICATIONS: Humulin insulin 70/30, hydrocodone APAP, Aldactone, Entresto, Lanoxin, Xarelto, Demadex, Zaroxolyn, Coreg and Xanax. REVIEW OF SYSTEMS: Review of systems times 10 with pertinent positives listed above in the HPI. PHYSICAL EXAMINATION: The patient's most recent vital signs: Temperature 98 degrees, blood pressure 89/60, heart rate 79, respirations 20. He is on 2 L nasal cannula, last recorded saturation 95%. He has had 546 in, 500 mL out to void. General: This is a 48-year-old male. He is resting quietly in bed. He appears chronically ill, no acute distress. Skin: Warm and dry. HEENT: Normocephalic, atraumatic. Conjunctiva is pale. He has THAI. Mucous membranes are dry. Neck: Supple. Trachea midline. Positive JVD. Cardiovascular: Irregularly irregular, noted to be in atrial fib/flutter on telemetry at the bedside. Unable to determine extra heart sounds secondary to body habitus. Lungs: Clear to auscultation bilaterally. Equal excursion. Remains on O2. Abdomen: Obese, soft, nontender. Positive bowel sounds hypoactive noted. Genitourinary: Not inspected. Extremities: Have trace edema. No clubbing or cyanosis both to upper and lower extremities. Neurological: He is alert and oriented x3. LABORATORY DATA: Sodium 136, potassium 4.7, chloride 98, CO2 23. BUN 70, creatinine 4.3, glucose 95. His anion gap is 15, calcium 8.4, phosphorus 6, magnesium 2.2. White count 4.97, hemoglobin 13.5, hematocrit 44.1, with a platelet count of 159. IMAGING STUDIES: The patient had a renal ultrasound indicating the left measuring 10.5, right measuring 11.8. Chest x-ray which was completed this morning, shows stable cardiomegaly and pulmonary vascular congestion with hazy background interstitial pulmonary edema remaining stable. The patient has had urine electrolytes indicating a fractionated urea score of 8.31%. ASSESSMENT AND PLAN: 1. Acute kidney injury on chronic kidney disease stage IIIB. Patient's baseline creatinine is 1.4 to 1.7. His renal ultrasound is essentially negative. Fractionated urea score is low at 8.31%. BUN and creatinine have taken a bump, more than likely secondary to his intravenous Lasix started yesterday evening for his heart failure. This has currently been stopped. He is now on normal saline 500 mL for bolus over [address] Waters. We will follow his labs. 2. Electrolytes and acid-base balance: These are acceptable. 3. Anemia. This is in target. 4. Congestive heart failure with atrial flutter. Patient is scheduled for cardioversion this morning per Dr. Waters. We will defer to Dr. Waters, the primary care team. I would like to thank you for allowing us to follow with this patient. Dictated by MEETA Garcia for Renzo Man MD cc: MEETA Garcia MD [facility]
--- NOTE | 2019-07-20 14:19 | EKG Report ---
Test Performed on : 07/20/2019 2:13:54 PM Test Reason : post cardioversion Blood Pressure : / mmHG Vent. Rate : 077 BPM Atrial Rate : 077 BPM P-R Int : 176 ms QRS Dur : 116 ms QT Int : 426 ms P-R-T Axes : 061 160 079 degrees QTc Int : 482 ms Normal sinus rhythm. Low voltage QRS Possible Lateral infarct (cited on or before 19-JUN-2019) Abnormal ECG When compared with ECG of 20-JUL-2019 06:57, (Unconfirmed) Nonspecific T wave abnormality no longer evident in Inferior leads Nonspecific T wave abnormality, improved in Lateral leads Confirmed by Leighann BARRERA, Yoseph Bell ([id number]) on 07/20/2019 3:43:24 PM
--- NOTE | 2019-07-20 15:07 | PROGRESS NOTE ---
DATE: 07/20/2019 SUBJECTIVE: The patient is resting comfortably in bed. He complains of intermittent anxiety. OBJECTIVE: Vital Signs: Temperature 97.6 degrees, blood pressure 108/75, heart rate 88, respirations 17, O2 saturation 95% on room air. General: This is a morbidly obese male, sitting at the edge of the bed in no acute distress. Heart: S1, S2 normal. Lungs: Diminished breath sounds at the bases. No wheezing. No rales. Abdomen: Positive bowel sounds. Soft, obese, nontender, nondistended. Extremities: Trace pedal edema. Neurologic: The patient is alert and oriented x4. LABORATORY DATA: Sodium 136, potassium 4.7, chloride 98, CO2 of 23, BUN 70, creatinine 4.3, glucose 95, phosphorus 6, calcium 8.4. ProBNP 4227. ASSESSMENT AND PLAN: 1. Acute on chronic systolic congestive heart failure exacerbation. The patient is currently on a Lasix drip. Management as per the artificial flowers starcher. 2. Atrial flutter. The patient is scheduled to undergo cardioversion today. 3. Morbid obesity. The patient has been counseled about weight loss and proper diet. 4. Anxiety disorder. Continue on Xanax. 5. Insulin-dependent diabetes mellitus type 2. Continue on Humulin 70/30 plus sliding scale insulin. 6. Acute kidney injury on chronic kidney disease. Worse today. Likely secondary to the combination of the patient's heart failure and diuretic therapy. Nephrology is following. 7. Deep vein thrombosis prophylaxis. The patient is on Xarelto. cc: Velma Payne MD [facility]
--- NOTE | 2019-07-20 16:24 | CARDIAC CATH REPORT ---
PROCEDURE NAME: - INDICATION FOR THE PROCEDURE: Atrial flutter. PROCEDURE PERFORMED: DC cardioversion. PROCEDURE IN DETAIL: Mr. Smith was brought to the catheterization laboratory in fasting state. Informed Consent was obtained. Prepped in usual fashion. He was sedated per Anesthesia. One shock was delivered in synchronized fashion at 120 joules with conversion to sinus. No apparent complications. cc: James Waters MD
[2019-07-20] MEDS: XARELTO PO SCH (16:47)
[2019-07-20] MEDS: XANAX PO PRN (16:52)
[2019-07-20] MEDS ORDERED: INSULIN PEN NEEDLES ONE (16:53)
[2019-07-20] MEDS: ZOFRAN IV PRN (18:11)
[2019-07-20] MEDS: MIRALAX PO SCH (20:28)
[2019-07-21] MEDS: XANAX PO PRN (01:11)
[2019-07-21] MEDS ORDERED: NS 250 ML IV ONE (01:59)
[2019-07-21] MEDS: HUMALOG SUBQ SCH ×4 (06:05→22:11)
[2019-07-21 06:39] LABS: CALCIUM 8.8 mg/dL (8.8-10.2); CREATININE 5.4 mg/dL (0.7-1.2); MAGNESIUM 2.2 mg/dL (1.5-2.7); PHOSPHORUS 6.9 mg/dL (2.7-4.5); POTASSIUM 4.9 mmol/L (3.5-5.1)
[2019-07-21] MEDS: HUMULIN 70/30 SUBQ SCH ×2 (07:28→16:09)
--- NOTE | 2019-07-21 07:39 | EKG Report ---
Test Performed on : 07/21/2019 06:21:31 AM Test Reason : AFLUTTER Blood Pressure : / mmHG Vent. Rate : 066 BPM Atrial Rate : 066 BPM P-R Int : 196 ms QRS Dur : 122 ms QT Int : 450 ms P-R-T Axes : 056 162 040 degrees QTc Int : 471 ms Normal sinus rhythm. Possible Right ventricular hypertrophy Possible Lateral infarct (cited on or before 19-JUN-2019) Inferior infarct , age undetermined Abnormal ECG When compared with ECG of 20-JUL-2019 14:13, Questionable change in initial forces of Lateral leads Nonspecific T wave abnormality now evident in Inferior leads Nonspecific T wave abnormality, worse in Lateral leads Confirmed by Leighann BARRERA, Yoseph Bell ([id number]) on 07/21/2019 10:31:21 AM
[2019-07-21] MEDS: LANOXIN PO SCH (08:31)
[2019-07-21] MEDS: MIRALAX PO SCH ×2 (08:31→22:11)
[2019-07-21] MEDS: CORDARONE PO SCH (08:32)
[2019-07-21] MEDS: COREG PO SCH ×3 (08:32→22:11)
[2019-07-21] MEDS ORDERED: NS 500 ML IV SCH (13:00)
--- NOTE | 2019-07-21 13:32 | CARDIOLOGY PROGRESS NOTE ---
DATE: 07/21/2019 SUBJECTIVE: Mr. Smith has no complaints today other than fatigue. He apparently did not sleep well last night. PHYSICAL EXAMINATION: Afebrile. Heart rate 66, blood pressure 97/74. Generally he is in no acute distress. Cardiovascular he is in a regular rate and rhythm. He has no obvious murmurs. His telemetry currently shows sinus rhythm. He has no increased work of breathing. His abdomen is soft, nontender. PERTINENT DATA: His sodium is 132. His BUN and creatinine are 76 and 5.4 which is up from 70 and 4.3. He has had 3 voids that were not measured. ASSESSMENT: Mr. Smith is a 48-year-old gentleman who presented in heart failure, renal insufficiency as well as atrial flutter. PLAN: His renal function continues to decline. This is likely a combination of the loss of atrial kick on presentation as well as diuresis. The patient presented volume overloaded, but likely is somewhat preload dependent. He got a bolus of IV fluids last night. I will not give him any more fluid today. Hopefully, we can see a trend down in his creatinine over the next 24 to 48 hours and plan on discharge. cc: James Waters MD
[2019-07-21] MEDS ORDERED: NS 500 ML ONE ×2 (13:43→17:14)
--- NOTE | 2019-07-21 13:55 | NEPHROLOGY PROGRESS NOTE ---
DATE: 07/21/2019 SUBJECTIVE: Patient is sitting up in a chair. He continues to be in atrial fibrillation/flutter. OBJECTIVE: Vital Signs: Temperature 97.3 degrees, pulse 66, respiratory rate 16, blood pressure 93/66. Intake 1.3 L. Output 175 mL. General: This is a middle-aged gentleman sitting up in a chair. He is awake and alert. He is in no acute distress. HEENT: Normocephalic, atraumatic. THAI. Neck: Supple. Unable to determine JVD. Cardiovascular: Irregularly irregular rhythm, noted in atrial fibrillation on bedside monitor. Pulmonary: Clear bilaterally. Equal excursion. Abdomen: Obese soft, positive bowel sounds. : Voiding. Extremities: Trace edema. No clubbing, cyanosis. Integumentary: Skin is warm and dry. Neurologic: Grossly nonfocal. He is appropriate with exam and insight. LAB DATA: Sodium 132, potassium 4.9, CO2 22, BUN 76, creatinine 5.4. ASSESSMENT AND PLAN: 1. Acute on chronic kidney disease stage 3B. He had some rise in creatinine first thought secondary to his Lasix. He is also out of rhythm which may be exacerbating his decreased renal function. He has no indications for intervention such as dialysis at this time. We will continue to follow labs daily while in the hospital. 2. Congestive heart failure. Underwent cardioversion yesterday. Patient remains in atrial fibrillation. 3. Electrolytes, acid-base balance in target next. 4. Anemia. I do not have any new labs. His last hemoglobin was 13.5, in target. Dictated by MEETA Bland for Renzo Man MD cc: Renzo Man MD
--- NOTE | 2019-07-21 15:42 | PROGRESS NOTE ---
DATE: 07/21/2019 SUBJECTIVE: The patient is resting comfortably in bed. He states that he has periods of anxiety. OBJECTIVE: Vital Signs: Temperature 97.5 degrees, blood pressure 97/74, heart rate 66, respirations 21, O2 saturation 96% on room air. General: This is a morbidly obese male sitting in a bed in no acute distress. Heart: S1, S2 normal. Regular rate and rhythm. Lungs: Clear to auscultation bilaterally. No wheezing. No rales. No rhonchi. Abdomen: Positive bowel sounds. Soft, nontender, nondistended. Extremities: No edema. No cyanosis. No calf tenderness. Neurologic: The patient is alert and oriented x4. LABS: Sodium 132, potassium 4.9, chloride 95, CO2 22. BUN 76, creatinine 5.4, glucose 121, phosphorus 6.9. ASSESSMENT AND PLAN: 1. Acute on chronic systolic congestive heart failure exacerbation. The patient is off of diuretic therapy at this time. Continue with the current cardiac medications. 2. Atrial flutter status post cardioversion. The patient is in normal sinus rhythm. Continue on amiodarone. Further management as per the community product specialist. 3. Hypotension. Will monitor closely. The patient received a 250ml fluid bolus overnight. 4. Acute kidney injury on chronic kidney disease. The BUN and creatinine continue to rise. Hopefully it will plateau. Continue to monitor closely for improvement. Nephrology is following. 5. Insulin-dependent diabetes mellitus type 2. Continue on sliding scale insulin. 6. Anxiety disorder. Continue on Xanax. 7. Morbid obesity. The patient has been counseled about weight loss and proper diet. 8. Hyperphosphatemia. Monitor. Change to renal/diabetic diet. 9. Deep vein thrombosis prophylaxis. The patient is currently on Xarelto. 10. Disposition: The patient should be stable for discharge once cleared by the community product specialist and his renal function stabilizes. cc: Velma Payne MD MTDD
[2019-07-21] MEDS: XARELTO PO SCH (16:13)
[2019-07-21] MEDS ORDERED: D50W SYRINGE IV ONE (17:00)
[2019-07-21] MEDS ORDERED: NS 500 ML IV ONE (17:03)
[2019-07-21] MEDS: NORCO-10 PO PRN (18:55)
[2019-07-22] MEDS: HUMALOG SUBQ SCH ×4 (06:18→20:32)
[2019-07-22 06:30] LABS: HEMATOCRIT 44.2 % (42.0-52.0); HEMOGLOBIN 13.6 g/dL (14.0-18.0); MCH 27.4 PG (27-31); MCHC 30.8 g/dL (33-37); MCV 88.9 FL (81-99); MPV 11.1 FL (7.4-10.4); RBC 4.97 XMIL (4.7-6.1); WBC 4.94 X1000 (4.8-10.8)
[2019-07-22 07:17] LABS: ALBUMIN 3.6 g/dL (3.5-5.0); CALCIUM 8.8 mg/dL (8.8-10.2); CREATININE 6.1 mg/dL (0.7-1.2); MAGNESIUM 2.4 mg/dL (1.5-2.7); PHOSPHORUS 6.2 mg/dL (2.7-4.5)
[2019-07-22 07:28] LABS: POTASSIUM 6.3 mmol/L (3.5-5.1)
[2019-07-22] MEDS ORDERED: ALBUTEROL 0.5% INH CONC FOR HYPERKALEMIA INH ONE (07:40)
[2019-07-22] MEDS ORDERED: HUMULIN R IV ONE (07:42)
[2019-07-22] MEDS ORDERED: D50W SYRINGE IV ONE (07:42)
[2019-07-22] MEDS: MIRALAX PO SCH ×2 (08:55→20:38)
[2019-07-22] MEDS: NORCO-10 PO PRN ×2 (09:04→20:31)
[2019-07-22] MEDS: CORDARONE PO SCH (09:05)
[2019-07-22] MEDS: COREG PO SCH ×2 (09:05→20:32)
[2019-07-22] MEDS ORDERED: CALCIUM GLUCONATE 4.65 MEQ in NS 50 ML IV ONE (09:23)
[2019-07-22] MEDS ORDERED: XYLOCAINE 2% JELLY UROJECT TOP ONE (09:35)
--- NOTE | 2019-07-22 10:00 | EKG Report ---
Test Performed on : 07/22/2019 08:43:50 AM Test Reason : Hyperkalemia Blood Pressure : / mmHG Vent. Rate : 061 BPM Atrial Rate : 061 BPM P-R Int : 228 ms QRS Dur : 120 ms QT Int : 460 ms P-R-T Axes : 089 227 082 degrees QTc Int : 463 ms Sinus rhythm. with 1st degree AV block. Possible Lateral infarct (cited on or before 19-JUN-2019) Abnormal ECG When compared with ECG of 21-JUL-2019 06:21, UT interval has increased Criteria for Inferior infarct are no longer present Serial changes of Lateral infarct present Confirmed by Leighann BARRERA, Yoseph Bell ([id number]) on 07/23/2019 10:52:16 AM
[2019-07-22] MEDS: LOKELMA POWDER PACKET PO SCH (10:25)
[2019-07-22 11:17] LABS: URINE SOURCE CATH
[2019-07-22 11:21] LABS: BILIRUBIN URINE NEGATIVE (NEGATIVE); BLOOD URINE TRACE (NEGATIVE); COLOR YELLOW; GLUCOSE URINE NEGATIVE (NEGATIVE); KETONE URINE NEGATIVE (NEGATIVE); LEUKOCYTES URINE MODERATE (NEGATIVE); NITRITE URINE NEGATIVE (NEGATIVE); PROTEIN URINE TRACE mg/dL (NEGATIVE); TURBIDITY URINE HAZY (CLEAR); UROBILINOGEN URINE 3 mg/dL (NORMAL)
[2019-07-22 11:23] LABS: UR EPITHELIAL CELLS <10 /HPF (<10); URINE BACTERIA NEGATIVE /HPF; URINE RBC <10 /HPF (<10); URINE WBC TNTC /HPF (<10)
--- NOTE | 2019-07-22 12:45 | PROGRESS NOTE ---
DATE: 07/22/2019 INTERVAL HISTORY: He did have an acute decline in his kidney function with hyperkalemia and I was paged about it. I had ordered insulin D50, albuterol inhalation, calcium gluconate, and an EKG. However, it ended up that the nurse went in to give those medicines and the patient wanted to postpone those as he wanted to take a shower. SUBJECTIVE: By the time I evaluated the patient he had received his insulin D50 and albuterol, he was about to get the calcium gluconate, and the EKG did not have any acute hyperkalemia related changes. The Nephrology Team has also ordered potassium lowering therapy. He is denying any chest pain or shortness of breath. He is complaining of burning at the IV line site. He had previously refused a Hart catheter and now he is agreeable to get it. OBJECTIVE: Vitals: Temperature of 98, pulse of 68, and respiratory rate of 18. His blood pressure is 89/69. Saturation is 99% on room air. General: On physical examination he is not in acute distress. HEENT: Oral cavity is moist. Respiratory: Air entry is bilaterally equal. No wheeze or rhonchi. Mild inspiratory crackles. He has a left infra-axillary region AICD pacemaker. Abdomen: Obese, soft, and nontender. Mild lower extremity edema. No pallor, cyanosis, clubbing, or icterus. LABS: CBC is unremarkable. BMP is remarkable for hyponatremia, hyperkalemia. and hypochloremia, increasing BUN and creatinine. His digoxin level is 0.6. MICROBIOLOGY: No new data. IMAGING: A renal ultrasound had suggested an essentially normal renal ultrasound. ASSESSMENT AND PLAN: 1. Acute on chronic systolic congestive heart failure exacerbation. He has been off diuretic therapy at the moment considering acute kidney injury. Continue his home amiodarone and carvedilol and hold the digoxin considering acute decline in kidney function and hyperkalemia at the moment. He does have nonischemic cardiomyopathy with an ejection fraction of 20% status post automatic implantable cardioverter defibrillator. 2. Atrial flutter status-post cardioversion on 07/20/2019. Continue amiodarone and carvedilol. I am holding digoxin. I am holding Xarelto as well and I will start alternative anticoagulation depending on his kidney function. 3. Hypotension, likely related to his congestive heart failure. Currently in acceptable range. His MAP has been more than 65 mmHg. 4. Acute kidney injury on chronic kidney disease stage 3 with further decline in BUN and creatinine with dangerously elevated potassium level. He is status post intravenous dextrose insulin, calcium gluconate, albuterol inhalation, and potassium lowering therapy. I will follow up the BMP. Hart catheter insertion orders have been placed. I convinced the patient to get a Hart catheter. Differential included ATN due to hypotension/Atrial flutter, prerenal failure due to diuretic therapy, Cardiorenal syndrome. 5. History of insulin dependent diabetes mellitus. I will continue to monitor his blood sugar and will continue him on sliding scale insulin as needed at the moment. 6. Others: Continue Xanax for anxiety; he has morbid obesity and he was counseled about weight reduction and dietary compliance. DISPOSITION: I will continue to monitor the patient in cardiac unit. Plan of care discussed with him and his questions were answered. cc: Hai Tabor MD MTDDread
--- NOTE | 2019-07-22 14:27 | NEPHROLOGY PROGRESS NOTE ---
DATE: 07/22/2019 SUBJECTIVE: Patient resting in bed. He is in no distress this morning. Continues to be in atrial fibrillation on the monitor, but a controlled rate. OBJECTIVE: Vital Signs: Temperature 98 degrees, pulse 61, respiratory rate 16, blood pressure 105/72. Intake 500 mL; output 400 mL plus multiple voids not measured. General: This is a middle-aged gentleman resting in bed in no acute distress. HEENT: Normocephalic, atraumatic. Conjunctivae are pink. Oral mucosa moist. Neck: Thick, supple, unable to determine JVD. Cardiovascular: Irregularly irregular rhythm, but controlled rate. Pulmonary: Clear bilaterally. Equal excursion. Abdomen: Obese, soft. : He is voiding. Extremities: 1+ edema. Integumentary: Skin is warm and dry. Neurologic: Grossly nonfocal. LAB DATA: WBC of 4.9, hemoglobin 13.6. Chemistries are pending. ASSESSMENT AND PLAN: 1. Acute on chronic kidney disease stage IIIB. The patient did receive some fluids last night. It is felt that he needed the preload for cardiac. We will wait and see what his labs hold today. 2. Anemia, stable. 3. Fluid volume overload. There is some question as far as actual amount of voided urine, he may be having some bladder outlet obstruction. I think he had imaging Wednesday, which showed his bladder was filled with clear urine. Further orders to follow. Pending labs. Dictated by MEETA Bland for Renzo Man MD cc: Renzo Man MD [facility]
[2019-07-22] MEDS ORDERED: LASIX IV ONE (14:35)
--- NOTE | 2019-07-22 15:01 | PROGRESS NOTE ---
DATE: 07/22/2019 SUBJECTIVE: Patient denies shortness of breath on room air. There has been no chest pain. He relates history of sleep apnea, but has not tolerated CPAP very well in the past. He is willing to give it another try here in the hospital. OBJECTIVE: Vital signs: Blood pressure 136/75, heart rate 62, oxygen saturation 98%. Neck: Jugular venous distention is present consistent with elevated central venous pressure. Chest: Clear to auscultation. Cardiac exam: Reveals a regular rate and rhythm without appreciable murmur or gallop. Extremities: Demonstrate mild pretibial edema. PERTINENT DATA: Twelve lead EKG demonstrates sinus rhythm with first degree AV block and low voltage in limb leads. Left axis deviation demonstrated. LABORATORY DATA: Includes a white blood cell count of 4.94, hematocrit. 13.6, hemoglobin 44.2, platelet count 158. Sodium 133, potassium 5.8, chloride 23. BUN 84, creatinine 6.1, glucose 110. Pro-B natriuretic peptide level 4227. IMPRESSION: 1. Acute on chronic systolic heart failure predominantly right-sided. 2. Recent atrial flutter. Patient is status post recent cardioversion and continues in sinus rhythm on amiodarone. 3. Acute on chronic renal dysfunction. Suspect a component of cardiorenal syndrome, as well as a component of acute tubular necrosis related to diminished cardiac output/renal perfusion. 4. Type 2 diabetes mellitus requiring insulin for control. 5. Obesity. 6. Obstructive sleep apnea. RECOMMENDATIONS: 1. Diurese with IV Lasix. 2. Reduce carvedilol for now. 3. Utilize BiPAP at night. 4. Follow renal function closely. cc: Hao May MD
[2019-07-22 19:18] LABS: ALBUMIN 3.9 g/dL (3.5-5.0); CALCIUM 9.1 mg/dL (8.8-10.2); CREATININE 6.4 mg/dL (0.7-1.2); PHOSPHORUS 6.2 mg/dL (2.7-4.5); POTASSIUM 5.1 mmol/L (3.5-5.1)
[2019-07-22] MEDS: LASIX IV SCH (20:31)
[2019-07-23] MEDS: HUMALOG SUBQ SCH ×4 (06:08→20:27)
[2019-07-23 06:59] LABS: ALBUMIN 3.7 g/dL (3.5-5.0); CALCIUM 9.1 mg/dL (8.8-10.2); CREATININE 6.4 mg/dL (0.7-1.2); PHOSPHORUS 6.6 mg/dL (2.7-4.5); POTASSIUM 5.7 mmol/L (3.5-5.1)
[2019-07-23] MEDS: COREG PO SCH ×2 (09:00→20:27)
[2019-07-23] MEDS: CORDARONE PO SCH (09:01)
[2019-07-23] MEDS: LASIX IV SCH ×2 (09:01→20:21)
--- NOTE | 2019-07-23 11:00 | NEPHROLOGY PROGRESS NOTE ---
DATE: 07/23/2019 SUBJECTIVE: Patient sitting up in a chair. He is complaining of his Hart catheter. OBJECTIVE: Vital Signs: Temperature 97.7 degrees, pulse 65, respiratory rate 20, blood pressure 105/85. Intake 1.1 L, output 825 mL. General: This is a chronically ill-appearing, obese, middle-aged gentleman. He is in no acute distress. HEENT: Normocephalic, atraumatic. THAI. Neck: Thick. Unable to determine JVD. Trachea midline. Cardiovascular: Regular irregular rhythm. He has a nicely controlled rate. Pulmonary: Clear bilaterally. Equal excursion. Abdomen: Obese, soft. Positive bowel sounds. : He has a Hart catheter. He has some blood- tinged urine. Extremities: There is 1+ edema. Integumentary: Skin remains warm and dry. Neurologic: Grossly nonfocal. LABORATORY DATA: Sodium 134, potassium 5.7, CO2 of 25, BUN 93, creatinine 6.4. ASSESSMENT AND PLAN: 1. Acute on chronic kidney disease stage IIIB. We had a Hart catheter placed yesterday because it was felt that the patient may be having some obstruction or urine retention. His urine output did increase. His creatinine has stabilized overnight. He has no indications for acute intervention. Continue to monitor closely. 2. Fluid volume. It appears that his Lasix has been increased by Cardiology. We will defer to them. His BUN did rise, and this is expected with the additional diuretics. Dictated by MEETA Bland for Renzo Man MD cc: Renzo Man MD
[2019-07-23] MEDS ORDERED: ZAROXOLYN PO ONE (11:41)
--- NOTE | 2019-07-23 11:47 | PROGRESS NOTE ---
DATE: 07/23/2019 SUBJECTIVE: The patient is really very frustrated about his current condition. He requests me to have a complete explanation of all his current medical conditions which I did in front of him and also again in front of his sisters and mother as well. He reports breathing okay. OBJECTIVE: Vital Signs: Temperature 97.7 degrees, heart rate 72, respiratory rate 27, blood pressure 125/92, O2 saturation 95% on 2 L nasal cannula. General Examination: This is an extremely morbidly obese and chronically ill-looking, 48-year-old, male, lying in bed, in no acute distress. Cardiovascular Examination: S1 and S2 heard. No murmurs, gallops, or rubs. Regular rate and rhythm. Respiratory Examination: Mild expiratory crackles in both pulmonary bases. Patient has a left infraaxillary region ACV pacemaker. Abdomen: Soft, obese, nontender to palpation. Bowel sounds present. No organomegaly. Abdominal wall edema noted. Extremities: No clubbing, cyanosis. Edema all the way to the abdomen. Neurological Examination: The patient is alert and oriented x3. Moves 4 extremities. Laboratory Data: CBC each shows creatinine 6.4, potassium 5.7. ASSESSMENT AND PLAN: 1. Acute on chronic systolic congestive heart failure. Patient is on amiodarone and carvedilol, that has been decreases as per cardiology. We will continue with Lasix as per cardiology recommendations. Digoxin has been held because of declining kidney function. We will continue to monitor. 2. Atrial flutter, status post cardioversion in July 2019. We will continue with carvedilol and amiodarone. Because of renal dysfunction, Xarelto, which he has been on, has been stopped. 3. Acute on chronic kidney disease stage 3. Creatinine has stabilized at 6.5. Ins and outs indicate 1.1 L yesterday. Nephrology is following. We will follow recommendations. The patient has a Hart catheter. 4. Diabetes mellitus type 2. We will continue with sliding scale insulin, and Accu-Chek before meals and also at bedtime. 5. Anxiety disorder. We will continue with Xanax. 6. Morbid obesity. The patient has been counseled about weight loss. 7. Disposition. At this point, we will continue to monitor this patient here in the [facility]. His prognosis is very poor. He is not a candidate for heart transplant considering all his comorbidities. cc: Raman Dennis MD MTDD
[2019-07-23] MEDS: MIRALAX PO SCH ×2 (11:51→20:28)
--- NOTE | 2019-07-23 12:11 | PROGRESS NOTE ---
DATE: 07/23/2019 SUBJECTIVE: Patient demonstrated modest diuresis yesterday in response to IV Lasix. He continues with some anorexia but denies chest discomfort or shortness of breath. OBJECTIVE: Blood pressure 125/92, heart rate 73, oxygen saturation 95% to 98%. Jugular venous distention is present, consistent with significantly elevated central venous pressure. Chest: Clear to auscultation bilaterally. Cardiac Examination: Reveals a regular rate and rhythm without appreciable murmur or gallop. Extremities: Demonstrate mild pretibial edema. Laboratory Data: Includes a sodium of 134, potassium 5.7, chloride 95, carbon dioxide 25, BUN 93, creatinine 6.4, glucose 154, albumin 3.7. Limited followup echocardiography demonstrates left ventricular ejection fraction of 15-20% in the setting of left ventricular enlargement, mild mitral regurgitation, left atrial enlargement, right ventricular enlargement with depressed right ventricular systolic function, right atrial enlargement, and distended inferior vena cava consistent with markedly elevated central venous pressure. IMPRESSION: 1. Acute on chronic systolic heart failure predominantly right-sided. 2. Recent atrial flutter. Patient is status post recent cardioversion and continues in sinus rhythm on amiodarone. 3. Acute on chronic renal dysfunction. There appears to be a significant component of cardiorenal syndrome as well as a probable episode of acute tubular necrosis related to insult related to diminished renal perfusion. 4. Type 2 diabetes mellitus requiring insulin for control. 5. Morbid obesity. 6. Obstructive sleep apnea. RECOMMENDATIONS: 1. Continue efforts to diurese with IV Lasix. 2. Add metolazone 1 dose to see if diuresis can be enhanced. 3. Try and utilize BiPAP at night as tolerated. 4. If the patient cannot be sufficiently diuresed, ultrafiltration might be required. cc: Hao May MD
[2019-07-23 12:19] LABS: ALLEN TEST YES; BE -2.6 mmoll (-3.0-3.0); BLOOD TYPE ARTERIAL; HCO3-(ACT) 22.8 mmoll (20.0-26.0); O2(CT) 17.9 mL/dL (15.0-23.0); O2HB 92.3 % (95.0-99.0); PCO2(98.6) 43 mmHg (35-45); PO2(98.6) 68 mmHg (60-100); SAMPLE BLOOD; SAO2 95.2 % (95.0-100.0); THB 13.8 g/dL (11.5-17.4); pH(98.6) 7.34 (7.35-7.45)
[2019-07-23 12:20] LABS: MODALITY ROOM AIR
[2019-07-23] MEDS: LOKELMA POWDER PACKET PO SCH ×2 (13:01→18:16)
[2019-07-23] MEDS: XANAX PO PRN (13:05)
[2019-07-23 19:00] LABS: ALBUMIN 3.5 g/dL (3.5-5.0); CALCIUM 9.1 mg/dL (8.8-10.2); PHOSPHORUS 6.1 mg/dL (2.7-4.5); POTASSIUM 5.2 mmol/L (3.5-5.1)
[2019-07-23] MEDS: NORCO-10 PO PRN (20:22)
[2019-07-24] MEDS: LOKELMA POWDER PACKET PO SCH ×2 (00:33→12:27)
[2019-07-24 04:45] LABS: ALLEN TEST YES; BLOOD TYPE ARTERIAL; HCO3-(ACT) 24.9 mmoll (20.0-26.0); METHB 1.2 % (0.0-1.5); O2(CT) 18.5 mL/dL (15.0-23.0); O2HB 95.5 % (95.0-99.0); PCO2(98.6) 40 mmHg (35-45); PO2(98.6) 93 mmHg (60-100); SAMPLE BLOOD; SAO2 98.6 % (95.0-100.0); THB 13.7 g/dL (11.5-17.4)
[2019-07-24 04:47] LABS: MODALITY ROOM AIR
[2019-07-24] MEDS: HUMALOG SUBQ SCH ×4 (06:23→21:05)
[2019-07-24 06:54] LABS: ALBUMIN 3.7 g/dL (3.5-5.0); CALCIUM 9.2 mg/dL (8.8-10.2); CREATININE 5.6 mg/dL (0.7-1.2); PHOSPHORUS 6.4 mg/dL (2.7-4.5); POTASSIUM 4.8 mmol/L (3.5-5.1)
[2019-07-24] MEDS: CORDARONE PO SCH (08:51)
[2019-07-24] MEDS: COREG PO SCH ×2 (08:51→21:06)
[2019-07-24] MEDS: LASIX IV SCH ×2 (08:51→21:06)
[2019-07-24] MEDS: MIRALAX PO SCH ×2 (08:52→21:05)
[2019-07-24] MEDS ORDERED: LOKELMA POWDER PACKET PO SCH (09:00)
--- NOTE | 2019-07-24 09:59 | PROGRESS NOTE ---
DATE: 07/24/2019 SUBJECTIVE: The patient reports feeling better. Less shortness of breath. Denies any fever or chills. OBJECTIVE: Vital Signs: Temperature 97.6, heart rate 75, respiratory rate 19, blood pressure 136/97, O2 saturation 97% 2 L nasal cannula. General: This is a chronically ill-appearing and extremity morbidly obese, 48-year-old, male, lying in bed in no acute distress. Cardiovascular: S1, S2 heard. No murmurs, gallops, or rubs. Regular rate and rhythm. Respiratory: Mild expiratory crackles in both pulmonary bases. Decreased breath sounds globally as well, most likely secondary to body habitus. The patient has a left infra-axillary region AICD pacemaker. Abdomen: Soft, obese, nontender to palpation. Bowel sounds present. No organomegaly. Abdominal wall edema noted, similar in comparing with yesterday. Extremities: No clubbing, cyanosis, but there is edema all the way up to the abdomen. Neurological: The patient is alert and oriented x3. Moves all 4 extremities. LABORATORY DATA: ABG shows pH 7.40, with pCO2 of 40, PO2 of 93, bicarbonate is 24.9. Sodium 134, creatinine 5.6. ASSESSMENT AND PLAN: 1. Acute on chronic systolic congestive heart failure. The patient continues to be on carvedilol and amiodarone. The patient is also on Lasix 120 mg intravenously every 12 hours. His diuresis has improved remarkably today. Digoxin has been held because of declining kidney function. Will continue to monitor. 2. Acute on chronic kidney disease stage 3. Creatinine has improved to 5.6 today. Intake and output has improved. I think at this point, we will continue with the same management. Nephrology is following this patient. Will follow recommendations. 3. Atrial flutter, status post cardioversion in 07/2019. At this point, will continue with amiodarone and carvedilol. He has been on Xarelto, but because of renal dysfunction, that has been stopped. At this point, will continue to follow recommendations from Cardiology. 4. Diabetes mellitus type 2. Will continue with sliding scale insulin and Accu-Chek before meals and also at bedtime. 5. Anxiety disorder. Will continue with Xanax. 6. Morbid obesity. The patient has been consulted again about weight loss. 7. Disposition. At this point, will continue to monitor this patient in [facility]. His prognosis is very poor considering his noncompliance, and he is not a candidate for heart transplant considering all of his comorbidities as well. cc: Raman Dennis MD
[2019-07-24] MEDS: NORCO-10 PO PRN ×2 (13:23→23:51)
[2019-07-24] MEDS: LOVENOX SUBQ SCH (15:51)
[2019-07-24 18:50] LABS: ALBUMIN 3.7 g/dL (3.5-5.0); CALCIUM 8.9 mg/dL (8.8-10.2); CREATININE 5.4 mg/dL (0.7-1.2); PHOSPHORUS 5.1 mg/dL (2.7-4.5); POTASSIUM 4.6 mmol/L (3.5-5.1)
--- NOTE | 2019-07-24 19:13 | CARDIOLOGY PROGRESS NOTE ---
DATE: 07/24/2019 SUBJECTIVE: Mr. Smith reports he is doing well. He is lying flat. No complaints of orthopnea. He has had increased diuresis. PHYSICAL EXAMINATION: Vital Signs: His inputs and outputs over the last 24 hours or so have been negative 3.6 L. He is afebrile, heart rate 75, blood pressure 136/97. General: He is in no acute distress. Cardiovascular: He sounds to be in a regular rate and rhythm. He has warm extremities. He has trace bilateral lower extremity edema. Chest: Clear bilaterally. No increased work of breathing. Abdomen: Soft, nontender. PERTINENT DATA: His sodium is 134, potassium 4.8. His BUN is 95 with a creatinine of 5.6, which is down from a peak of 6.4. ASSESSMENT: Mr. Smith is a 48-year-old gentleman who presented with atrial flutter and has a component of acute tubular necrosis as well as likely cardiorenal syndrome. PLAN: We will continue him on intravenous diuretics. He is on a low dose of Coreg as well as amiodarone. Laboratories to be checked in the morning. cc: James Waters MD
--- NOTE | 2019-07-24 21:07 | NEPHROLOGY PROGRESS NOTE ---
DATE: 07/24/2019 Subjective: patient sitting up in chair eating breakfast. Denies any complaints of shortness of breath, chest pain, nausea vomiting, or change in appetite. Objective: Vital signs temperature 97.6, pulse 75, respirations 19, blood pressure 136/97, 02 sat 97% on 2 L nasal cannula. General: this is a middle aged black male sitting in a chair with no acute distress. HEENT: a traumatic, normocephalic. Pupils equal round and reactive to light. Mucous membranes moist. Skin: warm and dry, no rashes or lesions noted. Neck:supple, positive for JVD. Cardiovascular: S1S2. Regular rate and rhythm with a heave. no murmurs noted. Lungs: clear to auscultation bilaterally no rhonchi or crackles noted. Abdomen: obese, soft, nontender, nondistended. Bowel sounds present. Extremities: 1+pitting to bilateral lower extremities : not inspected: Hart in place with clear light Sharmila urine. Neurological: alert and oriented to person, place, and time. Labs: 1730/3975. Sodium 134, potassium 4.8, chloride 94, carbon dioxide 25, anion gap 15, BUN 95, creatinine 5.6, calcium 9.2, phosphorus 6.7, albumin 3.7. Impression: Acute on chronic kidney disease [id number]. Hart catheter still in place with good urine output almost 4 L. His creatinine is slowly trending down. His BUN remains elevated. Likely due to diuretic use. No indications for Renal replacement therapy. Continue to monitor closely. Electrolytes and acid-base balance. Stable. Fluid volume status. 1+ pitting edema to bilateral ankles. Pt was given a one time dose of zaroxolyn yesterday. Remains on Lasix 120 mg IVQ 12 hours cc: Renzo Man MD [facility]
--- NOTE | 2019-07-25 00:13 | ECHO REPORT ---
ORDER DATE: 07/23/2019 MEASUREMENTS: Septal thickness 1.1, left ventricular internal diameter diastole 6.7, posterior wall thickness 1.1, left ventricular internal diameter in systole 5.5, left atrium 4.3, aortic root 3.0. SUMMARY: 1. Fair quality study. 2. Aortic valve is trileaflet and opens normally on 2-dimensional images. Peak gradient across aortic valve is less than 5 mmHg. Mitral, tricuspid and pulmonic valves are without evidence of structural abnormality with very mild tricuspid regurgitation and very mild mitral regurgitation. Estimated systolic PA pressure by Doppler is 45 mmHg. The aortic root is normal in size. 3. Moderate left ventricular enlargement with upper normal wall thickness demonstrated. Estimated left ejection fraction approximately 15 to 20 percent in the setting of severe global hypokinesis. Left atrium is moderate to severely enlarged. The right atrium is moderately enlarged. The right ventricle is moderately enlarged with reduced right ventricular systolic function. 4. No pericardial effusion. 5. Appearance of inferior vena cava suggests significantly elevated central venous pressure. cc: Hao May MD
[2019-07-25 04:21] LABS: ALLEN TEST YES; BE 4.8 mmoll (-3.0-3.0); BLOOD TYPE ARTERIAL; HCO3-(ACT) 28.5 mmoll (20.0-26.0); METHB 1.1 % (0.0-1.5); O2(CT) 17.2 mL/dL (15.0-23.0); O2HB 90.2 % (95.0-99.0); PCO2(98.6) 48 mmHg (35-45); PO2(98.6) 60 mmHg (60-100); SAMPLE BLOOD; SAO2 93.4 % (95.0-100.0); THB 13.6 g/dL (11.5-17.4); pH(98.6) 7.41 (7.35-7.45)
[2019-07-25 04:22] LABS: MODALITY ROOM AIR
[2019-07-25] MEDS: HUMALOG SUBQ SCH ×2 (06:34→11:15)
[2019-07-25] MEDS ORDERED: LASIX PO SCH (09:30)
[2019-07-25] MEDS: COREG PO SCH (09:33)
[2019-07-25] MEDS: CORDARONE PO SCH (09:33)
[2019-07-25] MEDS: LANOXIN PO SCH (09:36)
[2019-07-25] MEDS: MIRALAX PO SCH (09:37)
[2019-07-25] MEDS: NORCO-10 PO PRN (09:42)
[2019-07-25 10:49] LABS: ALBUMIN 3.6 g/dL (3.5-5.0); CALCIUM 9.4 mg/dL (8.8-10.2); CREATININE 4.8 mg/dL (0.7-1.2); PHOSPHORUS 4.8 mg/dL (2.7-4.5); POTASSIUM 4.6 mmol/L (3.5-5.1)
--- NOTE | 2019-07-25 10:59 | NEPHROLOGY PROGRESS NOTE ---
DATE: 07/25/2019 SUBJECTIVE: He is sitting up in his bed in no acute distress. He states he has been out of bed walking in the hallway. No shortness of breath. No dizziness or other symptoms. OBJECTIVE: Vital Signs: Blood pressure 104/89, heart rate 62, respiration 18, afebrile. Intake. 240 mL. Output 6.9 L. General: No acute distress. Skin: Warm and dry. Neck: Neck veins are not distended. Heart: Regular. No gallops. Lungs: Equal. No crackles. Abdomen: Soft, nontender. Bowel sounds are present. Extremities: Have trace edema. No clubbing or cyanosis. IMPRESSION: 1. Acute kidney injury overlying chronic kidney disease. No data as of yet from this morning. We will continue to monitor. 2. If he is otherwise ready for discharge then we will see him as an outpatient. 3. From my perspective he can certainly be discharged and again we will monitor his kidney function. We will decrease his diuretic dose today by changing to p.o. His thiazide diuretic is been discontinued. cc: Renzo Man MD
[2019-07-25] MEDS: LOKELMA POWDER PACKET PO SCH (11:16)
[2019-07-25] MEDS: LOVENOX SUBQ SCH (14:10)
[2019-07-25] MEDS: XANAX PO PRN (14:10)
--- NOTE | 2019-07-25 14:40 | PROGRESS NOTE ---
DATE: 07/25/2019 INTERVAL HISTORY: No acute events overnight. His IV Lasix was changed to oral. He denies any chest pain, shortness of breath. OBJECTIVE: Current Vital Signs: Temperature 97.6 degrees, pulse 71, respiratory rate 17, blood pressure 126/85, saturating 97% room air. General: Morbidly obese. Not in any acute distress. HEENT: Oral cavity is moist. Lungs: Air entry bilaterally equal. No wheeze, rhonchi, or crackles. Cardiovascular: S1, S2 normal. No murmur, rub, or gallop. Appears regular. Abdomen: Obese, soft, nontender. Extremities: Bilateral lower extremity edema, which is decreased from before. Neurologic: He is alert and oriented x3. LABORATORY DATA: BMP suggestive of BUN of 94, creatinine of 4.8. MICROBIOLOGY: No new data. IMAGING: No new data. ASSESSMENT AND PLAN: 1. Acute on chronic systolic congestive heart failure exacerbation with history of nonischemic cardiomyopathy and ejection fraction of 20%, status post automatic implantable cardioverter- defibrillator. Continue current dose of oral Lasix, carvedilol. Follow up close input and output monitoring. 2. Atrial flutter, status post cardioversion on 07/20/2019. Continue home amiodarone, carvedilol. His digoxin has been resumed. I will appreciate Cardiology recommendation about continuing digoxin as well as long-term anticoagulation. He may need a lower dose of Eliquis, like 2.5 mg twice daily. Previously, he was on Xarelto though. 3. Acute kidney injury on chronic kidney disease stage 3, now appears to be advanced to chronic kidney disease stage 4. Nephrology on board, and close input and output monitoring. Outpatient followup is recommended. 4. History of insulin-dependent diabetes mellitus. Continue sliding scale insulin. 5. Others. Continue alprazolam for anxiety. 6. Disposition. I will monitor his response on oral Lasix, and will consider discharge in the next 24 hours. Plan of care discussed with him. I am also awaiting Cardiology recommendations. cc: Hai Tabor MD
[2019-07-25 15:56] VITALS: BP 105/66
--- NOTE | 2019-07-26 05:54 | DISCHARGE SUMMARY ---
ADMISSION DATE: 07/19/2019 DISCHARGE DATE: 07/25/2019 DISCHARGE DISPOSITION: Home. DISCHARGE CONDITION: Hemodynamically stable. He has been started on oral Lasix. Several adjustments were made in his cardiovascular medicine. His kidney function was stable. He was advised to have follow up with his gold plater and oxygen equipment aide. DISCHARGE DIAGNOSES: 1. Atrial flutter with rapid ventricular response. 2. Acute on chronic systolic congestive heart failure exacerbation. 3. Acute kidney injury on chronic kidney disease stage 3 now leading to further kidney dysfunction decline. 4. Hyperkalemia. OTHER DIAGNOSES: 1. History of morbid obesity. 2. History of paroxysmal atrial fibrillation. 3. History of insulin-dependent diabetes mellitus type 2. 4. History of anxiety. DISCHARGE MEDICATIONS: 1. Xarelto 15 mg in the morning time. 2. Amiodarone 400 mg daily. 3. Carvedilol 3.125 mg b.i.d. 4. Insulin Humulin 70/30 30 units b.i.d. 5. Furosemide 80 mg b.i.d. 6. Sodium zirconium powder 10 g daily. He was advised to have a repeat potassium level within 5 days, and discuss the results with Dr. Man. 7. MiraLAX 17 g b.i.d. as needed for constipation. 8. Alto 10 1 tablet every 8 hours. 9. Alprazolam 0.25 mg every 8 hours as needed for anxiety. SIGNIFICANT VITALS AT TIME OF DISCHARGE: Temperature 98.2 degrees, pulse 61, respiratory 18, blood pressure 95/66 and saturating 100% on room air. His BMI is 45. PHYSICAL EXAMINATION: General: Morbidly obese not in any acute distress. HEENT: Oral cavity is moist. Lungs: Air entry bilaterally equal. No wheeze or rhonchi. No crackles. Heart: Regular heart rhythm on bedside monitor. Abdomen: Obese, soft, and nontender. He has bilateral lower extremity edema which is better than since presentation. LABORATORY: Significant labs on hospital admission and discharge. WBC 4.9, hemoglobin 13.6, and platelets 158,000. His pH was 7.4, pCO2 48, PO2 of 60 on room air. On discharge, his BUN is 94, creatinine 4.8, GFR of 16, blood sugar 119, potassium 4.6. MICROBIOLOGY: Urine culture did not have any growth. SIGNIFICANT IMAGING: Chest x-ray on admission had pulmonary edema, loculated pleural effusion on the right side. Renal ultrasound performed on 07/20 essentially had normal kidneys. HOSPITAL COURSE SUMMARY: Mr. Smith is a 48-year-old man with past medical history of nonischemic cardiomyopathy and chronic systolic congestive heart failure status post AICD implantation, [employer] device, paroxysmal atrial fibrillation, who had seen his regular gold plater in his office when he was found to have atrial flutter with rapid ventricular response so he was directly admitted to [facility] for further management. He was started on intravenous Lasix and intravenous amiodarone. On the next day, he underwent DC cardioversion. However, he also developed acute decline in his kidney function. Apparently, prior to this admission, his baseline kidney function was around 1.5 to 1.7. However, on current admission, his kidney function was 2.9, which declined to 4.3 the next day which worsened to 6.4 during hospital admission. It was thought that his decline in kidney function was related to poor kidney perfusion related to his atrial flutter and rapid ventricular response on top of his baseline congestive heart failure with ejection fraction of 20%. Nephrology team was involved. The patient was kept in cardiac telemetry unit with close monitoring of input and output, and his intravenous Lasix doses were adjusted following which his kidney function stabilized. His hyperkalemia also resolved. At the time of discharge, he was provided detailed discharge instructions about change in the diuretic regimen that was made. He was resumed back on his Xarelto. He was advised to have follow-up with Dr. Man and Dr. Waters. TIME SPENT: More than 30 minutes spent discharging the patient. All of his questions were answered. cc: Hai Tabor MD [facility]
[2019-07-26] MEDS ORDERED: XARELTO PO SCH (17:00)
== END 2019-07-25 17:52 | disposition home or self-care (01) | DRG 308 ==
LOC: SUATTDRO 09:32 → DIRADM 09:32 → 2N 09:56
PROVIDERS: ATTEND Internal Medicine